=== PATIENT | female | born 1945 | race Caucasian/White ===

== ENCOUNTER 2018-02-08 17:18 | Emergency (ER) | payer MEDICARE, OTHER, SELFPAY ==
[2018-02-08 17:19] VITALS: BP 149/62; PULSE 85; RESP 16; TEMP 36.3; O2SAT 98; BMI 26.1
[2018-02-08 17:29] VITALS: BP 124/57; PULSE 81; RESP 14; O2SAT 97
--- NOTE | 2018-02-08 17:53 | EKG12_ITS ---
Test Reason : FAINTED Blood Pressure : / mmHG Vent. Rate : 077 BPM Atrial Rate : 077 BPM P-R Int : 138 ms QRS Dur : 076 ms QT Int : 382 ms P-R-T Axes : 028 006 022 degrees QTc Int : 432 ms Sinus rhythm with Premature atrial complexes Otherwise normal ECG Confirmed by HELGA BISHOP, SHAHLA ([id number]), publication editor KELLY KEBEDE ([id number]) on 02/11/2018 1:56:37 PM Referred By: PIERRE Confirmed By:SHAHLA PARTIDA MD
[2018-02-08 18:05] LABS: Absolute Neutrophil Count 8.1 X10^3/uL (2.0-7.7); Basophil# 0.03 X10^3/uL; Basophil% 0.3 % (0-1); Eosinophil# 0.04 X10^3/uL; Eosinophils% 0.4 % (0-5); Hematocrit 36.2 % (37-47); Hemoglobin 12.1 g/dl (12.0-15.0); Mean Corp Hgb Conc 33.4 g/gl (32-36); Mean Corpuscular Hgb 31.3 pg (27.0-32.0); Mean Corpuscular Volume 93.5 fL (81-99); Mean Platelet Vol. 11.4 fl (6.2-12.0); Monocyte# 0.63 X10^3/uL; Monocyte% 6.3 % (0-10); Neutrophil # 8.13 X10^3/uL (2.7-7.7); Neutrophil % 80.9 % (47-70); POSITIVE COUNT NO; POSITIVE DIFFERENTIAL NO; POSITIVE MORPHOLOGY NO; Platelet Count 215 K/mm3 (150-450); RBC Distribution Width CV 13.2 % (11.6-14.6); RBC Distribution Width SD 44.7 fl (35.1-43.9); Red Blood Count 3.87 M/mm3 (4.2-5.4)
--- NOTE | 2018-02-08 18:05 | RAD_ITS ---
STUDY: X-RAY CHEST REASON FOR EXAM: Female, 72 years old. Syncopal episode while at work. TECHNIQUE: PA and lateral views of the chest. COMPARISON: None. FINDINGS: The lungs are clear and expanded. There is no demonstrated pleural abnormality. Normal size heart. Normal mediastinum and zachary. Normal visualized pulmonary arteries. Normal visualized aortic arch and descending thoracic aorta. There is demineralization of the osseous structures. Normal visualized ribs, clavicles, and shoulders. There is no demonstrated abnormality of the visualized soft tissue structures of the upper abdomen. RAD/Chest PA and Lateral IMPRESSION: No acute cardiopulmonary disease. Electronically Signed: Daniel Haque DO at 18:55 EDT Tel [phone], Service support ,
[2018-02-08 18:24] LABS: Anion Gap 10 (5-15); BUN 36 mg/dL (7-18); BUN/Creat Ratio 20.7 RATIO (10-20); Calcium,Total 9.5 mg/dL (8.5-10.1); Chloride 101 mmol/L (98-107); Creatinine, Serum 1.74 mg/dL (0.55-1.02); EST Glomerular Filtration Rate 30 mL/min (>60); Est Glom Filt Rate - Afr Amer 37 mL/min (>60); Estimated Creatinine Clearance 26.55 ml/min; Glucose 150 mg/dL (74-106); Potassium 4.2 mmol/L (3.5-5.1); Sodium Level 136 mmol/L (136-145); Thyroid Stim Hormone (TSH) 3.16 uIU/mL (0.358-3.74)
--- NOTE | 2018-02-08 18:45 | ED.DCSUM_ITS ---
- ER Visit Summary Date of Service: 02/08/18 Chief Complaint: Syncope History of Present Illness: The patient is a 72 F was at work today when she suddenly got very hot sweaty pale lightheaded and eventually passed out. She is helped to the ground by a customer. She came to and had no headache. She had no confusion. No reported seizure activity. Patient has had one prior syncopal event. Patient states that before her syncope she had no chest pain no palpitations no abdominal pain no desire to have a bowel or bladder movements. Physical Examination: Afebrile vital signs are stable Gen: Well-nourished well-developed Head: Normocephalic atraumatic Eyes: Perrl EOMI ENT: TMs clear no rhinorrhea moist mucous membranes Neck: Supple no lymphadenopathy no JVD nontender CVS: Regular rate rhythm no murmurs normal S1-S2 Respiratory: No distress clear to auscultation bilaterally chest nontender Abdomen: Soft nontender nondistended normal bowel sounds no masses Back: Nontender Extremity: Nontender no edema Skin: Normal color no rash Neuro: alert orientated ?3 CN II-XII intact normal strength sensation reflexes gait cerebellar Psych: Normal affect normal mood Test Results: EKG showed sinus rhythm at a rate of 77 there was a noted PAC. CBC chemistries showed a BUN of 36 and creatinine 1.74. TSH is normal at 3.16. Troponin negative. Chest x-ray no acute disease. Emergency Department Course and Treatment: Patient was observed on the monitor. She has had no events. Patient otherwise feels back to her normal self. Patient will follow up with her doctor return if worsening. Impression: 1. Syncope This note was generated with [employer] dictation software. It may contain incorrect words, spelling, and punctuation that were not noted in review of the chart prior to signing ED Disposition - Plan for ED Patient: Disposition: Home or Assisted Living Chief Complaint: Syncope Instructions: ED Fainting Unkn Cause Referrals: Janice Azevedo DO [Primary Care Provider] - (with in 3 days) Additional Instructions: return if symptoms reoccur
[2018-02-08 19:22] VITALS: BP 117/59; PULSE 75; RESP 22; O2SAT 95
== END 2018-02-08 19:24 | disposition home or self-care (01) ==
PROVIDERS: Emergency Provider Emergency Medicine; Family Provider Internal Medicine; PCP Internal Medicine
DX: R55 Syncope and collapse (principal); E11.9 Type 2 diabetes mellitus without complications; I10 Essential (primary) hypertension
CPT/HCPCS: 71046; 80048; 84443; 84484; 85025; 93005; 99284; A4216

== ENCOUNTER → 2018-08-04 10:10 | Outpatient (CLI) | payer MEDICARE, OTHER, SELFPAY ==
--- NOTE | 2018-08-04 10:13 | BI_ITS ---
MAMMOGRAPHY - BILATERAL SCREENING REASON FOR EXAM: Female, 73 years old. Routine annual screening examination. PERTINENT HISTORY: Daughter with breast cancer. TECHNIQUE: Digital bilateral breast kevin (3D mammographic acquisition) in the CC and MLO projections. 2-D mediolateral oblique (MLO) and craniocaudad (CC) views of both breasts were obtained. CAD: Full Field Digital Mammography with Computer Added Detection was performed. COMPARISON: Comparison is made with prior study dated July 26, 2017 and July 16, 2016. FINDINGS: Breast Composition: The breasts are heterogeneously dense, which may obscure small masses. There are no dominant masses or suspicious calcifications. No other significant abnormalities are identified. There has been no significant change since the prior study. BI/SCREENING MAMM (CAD), BILAT IMPRESSION: Stable bilateral screening mammogram. Yearly follow-up mammogram recommended. (A) ASSESSMENT CATEGORY: BIRADS Category 1: Negative. A letter regarding these results will be sent to the patient by the facility within 30 days. Approximately 10% of breast cancers are not detected by mammography. A normal mammogram should not delay biopsy of a clinically suspicious abnormality. [id number] Electronically Signed: Bridger Angel MD at 13:40 EDT Tel [phone], Service support ,
--- NOTE | 2018-08-04 10:18 | BD_ITS ---
STUDY: DUAL ENERGY X-RAY ABSORPTIOMETRY / DXA REASON FOR EXAM: Female, 73 years old. The patient is postmenopausal. Loss of height. TECHNIQUE: Bone Mineral Density (BMD) measurements of lumbar spine and bilateral hips were obtained. COMPARISON: Comparison is made with prior examination dated July 16, 2016. FINDINGS: Lumbar Spine (L1-L4): g/cm2 (1.056) / T-score (-0.9) / Z-score (0.8) Findings are suggestive of normal bone density with a low fracture risk. Left Femur Total: g/cm2 (0.968) / T-score (-0.3) / Z-score (1.4) Left Femoral Neck: g/cm2 (0.892) / T-score (-1.1) / Z-score (0.9) Right Femur Total: g/cm2 (0.974) / T-score (-0.3) / Z-score (1.5) Right Femoral Neck: g/cm2 (0.831) / T-score (-1.5) / Z-score (0.4) The T-Scores on the most recent prior examination were: Lumbar Spine (L1-L4): There has been worsening of bone density since the previous examination. Left Femur Total: which represents a worsening of 3.0%. Right Femur Total: which represents a worsening of 3.6%. BD/Dexa Bone Density Study IMPRESSION: The patient is considered osteopenic as outlined below according to World Nicolas Organization (WHO) criteria with a moderate fracture risk. There has been worsening of bone density since the previous examination. Reference Information: The T-score is the number of standard deviations above or below the standard which is normal for young adults at their peak bone mineral density. The World Health Organization (WHO) interprets the T-scores as follows: Above -1 Normal bone density Between -1 and -2.5 Osteopenia Equal to / or below -2.5 Osteoporosis As a practical clinical guideline, osteopenia may be graded as follows: Mild -1 through -1.5 Moderate -1.6 through -2.0 Severe -2.1 through -2.4 The Z-score is the number of standard deviations above or below age-matched controls. A Z-score of less than -1.5 would be considered abnormal. References: 1. NIH Osteoporosis and Related Bone Diseases http://www.osteo.org 2. International Society for Clinical Densitometry http://www.iscd.org 3. National Osteoporosis Foundation http://www.nof.org Electronically Signed: Bridger Angel MD at 15:13 EDT Tel [phone], Service support ,
== END ==
PROVIDERS: Family Provider Internal Medicine; PCP Internal Medicine; Referring Provider Internal Medicine; Visit Provider Internal Medicine
DX: Z12.31 Encounter for screening mammogram for malignant neoplasm of breast (principal); Z78.0 Asymptomatic menopausal state
CPT/HCPCS: 77063; 77067; 77080

== ENCOUNTER → 2019-08-07 11:18 | Outpatient (CLI) | payer MEDICARE, OTHER, SELFPAY ==
--- NOTE | 2019-08-07 11:21 | BI_ITS ---
MAMMOGRAPHY - BILATERAL SCREENING REASON FOR EXAM: Female, 74 years old. Routine annual screening examination. PERTINENT HISTORY: Daughter with breast cancer. TECHNIQUE: Digital bilateral breast minh (3D mammographic acquisition) in the CC and MLO projections. 2-D mediolateral oblique (MLO) and craniocaudad (CC) views of both breasts were obtained. CAD: Full Field Digital Mammography with Computer Added Detection was performed. COMPARISON: Comparison is made with prior study dated August 04, 2018 and July 26, 2017. FINDINGS: Breast Composition: The breasts are heterogeneously dense, which may obscure small masses. There are no dominant masses or suspicious calcifications. Stable benign-appearing bilateral axillary lymph nodes. No other significant abnormalities are identified. There has been no significant change since the prior study. BI/SCREEN MAMM (CAD) W/MINH BILAT IMPRESSION: Stable bilateral screening mammogram. Yearly follow-up mammogram recommended. (A) ASSESSMENT CATEGORY: BIRADS Category 2: Benign. A letter regarding these results will be sent to the patient by the facility within 30 days. Approximately 10% of breast cancers are not detected by mammography. A normal mammogram should not delay biopsy of a clinically suspicious abnormality. [id number] Electronically Signed: Bridger Angel, at 12:55 EST , Service support ,
== END ==
PROVIDERS: Family Provider Internal Medicine; PCP Internal Medicine; Referring Provider Internal Medicine; Visit Provider Internal Medicine
DX: Z12.31 Encounter for screening mammogram for malignant neoplasm of breast (principal)
CPT/HCPCS: 77063; 77067

== ENCOUNTER → 2020-08-14 14:46 | Outpatient (CLI) | payer MEDICARE, OTHER, SELFPAY ==
--- NOTE | 2020-08-14 14:50 | BI_ITS ---
MAMMOGRAPHY - BILATERAL SCREENING REASON FOR EXAM: Female, 75 years old. Routine annual screening examination. PERTINENT HISTORY: Daughter with breast cancer. TECHNIQUE: Digital bilateral breast minh (3D mammographic acquisition) in the CC and MLO projections. 2-D mediolateral oblique (MLO) and craniocaudad (CC) views of both breasts were obtained. CAD: Full Field Digital Mammography with Computer Added Detection was performed. COMPARISON: Comparison is made with prior examination dated 08/07/2019 and 08/04/2018. FINDINGS: Breast Composition: The breasts are heterogeneously dense, which may obscure small masses. There are no dominant masses or suspicious calcifications. Stable benign appearing bilateral axillary lymph nodes. No other significant abnormalities are identified. There has been no significant change since the prior study. BI/SCREEN MAMM (CAD) W/MINH BILAT IMPRESSION: Stable bilateral screening mammogram. Yearly follow-up mammogram recommended. (A) ASSESSMENT CATEGORY: BIRADS Category 2: Benign. A letter regarding these results will be sent to the patient by the facility within 30 days. Approximately 10% of breast cancers are not detected by mammography. A normal mammogram should not delay biopsy of a clinically suspicious abnormality. [id number] Electronically Signed: Bridger Angel, at 15:36 EST , Service support ,
== END ==
PROVIDERS: PCP Internal Medicine; Referring Provider Internal Medicine; Visit Provider Internal Medicine
DX: Z12.31 Encounter for screening mammogram for malignant neoplasm of breast (principal)
CPT/HCPCS: 77063; 77067

== ENCOUNTER → 2021-08-19 11:08 | Outpatient (CLI) | payer MEDICARE, OTHER, SELFPAY ==
--- NOTE | 2021-08-19 11:11 | BD_ITS ---
STUDY: DUAL ENERGY X-RAY ABSORPTIOMETRY / DXA REASON FOR EXAM: Female, 76 years old. [id number]. The patient is postmenopausal. TECHNIQUE: Bone Mineral Density (BMD) measurements of lumbar spine and bilateral hips were obtained. COMPARISON: Comparison is made with prior study dated 08/04/2018. FINDINGS: Lumbar Spine (L1-L4): g/cm2 (0.907) / T-score (-1.0) / Z-score (1.5) Findings are suggestive of normal bone density with a low fracture risk. Left Femur Total: g/cm2 (0.858) / T-score (-0.7) / Z-score (1.3) Left Femoral Neck: g/cm2 (0.710) / T-score (-1.3) / Z-score (1.0) Right Femur Total: g/cm2 (0.870) / T-score (-0.6) / Z-score (1.4) Right Femoral Neck: g/cm2 (0.617) / T-score (-2.1) / Z-score (0.1) The T-Scores on the most recent prior examination were: Lumbar Spine (L1-L4): There has been worsening of bone density since the previous examination. Left Femur Total: which represents a worsening of 5%. Right Femur Total: which represents a worsening of 4.3%. BD/Dexa Bone Density Study IMPRESSION: The patient is considered osteopenic as outlined below according to World Nicolas Organization (WHO) criteria with a moderate fracture risk. There has been worsening of bone density since the previous examination. Reference Information: The T-score is the number of standard deviations above or below the standard which is normal for young adults at their peak bone mineral density. The World Health Organization (WHO) interprets the T-scores as follows: Above -1 Normal bone density Between -1 and -2.5 Osteopenia Equal to / or below -2.5 Osteoporosis As a practical clinical guideline, osteopenia may be graded as follows: Mild -1 through -1.5 Moderate -1.6 through -2.0 Severe -2.1 through -2.4 The Z-score is the number of standard deviations above or below age-matched controls. A Z-score of less than -1.5 would be considered abnormal. References: 1. NIH Osteoporosis and Related Bone Diseases www osteo.org 2. International Society for Clinical Densitometry www iscd.org 3. National Osteoporosis Foundation www nof.org Electronically Signed: Bridger Angel MD at 14:53 EST , Service support ,
--- NOTE | 2021-08-19 11:11 | BI_ITS ---
MAMMOGRAPHY - BILATERAL SCREENING REASON FOR EXAM: Female, 76 years old. Routine annual screening examination. PERTINENT HISTORY: Daughter with breast cancer. TECHNIQUE: Digital bilateral breast minh (3D mammographic acquisition) in the CC and MLO projections. 2-D mediolateral oblique (MLO) and craniocaudad (CC) views of both breasts were obtained. CAD: Full Field Digital Mammography with Computer Added Detection was performed. COMPARISON: Comparison is made with prior study dated 08/14/2020 and 08/07/2019. FINDINGS: Breast Composition: The breasts are heterogeneously dense, which may obscure small masses. There are no dominant masses or suspicious calcifications. Stable small benign-appearing bilateral axillary lymph nodes. No other significant abnormalities are identified. There has been no significant change since the prior study. BI/SCRN MAMM (CAD)W/MINH BILAT IMPRESSION: Stable bilateral screening mammogram. Yearly follow-up mammogram recommended. (A) ASSESSMENT CATEGORY: BIRADS Category 2: Benign. A letter regarding these results will be sent to the patient by the facility within 30 days. Approximately 10% of breast cancers are not detected by mammography. A normal mammogram should not delay biopsy of a clinically suspicious abnormality. [id number] Electronically Signed: Bridger Angel MD at 12:15 EST , Service support ,
== END ==
PROVIDERS: PCP Internal Medicine; Visit Provider Internal Medicine
DX: Z12.31 Encounter for screening mammogram for malignant neoplasm of breast (principal); Z78.0 Asymptomatic menopausal state
CPT/HCPCS: 77063; 77067; 77080

== ENCOUNTER 2021-10-11 09:51 | Outpatient (CLI) | payer MEDICARE, OTHER, SELFPAY ==
[2021-10-11 10:01] LABS: Mucous, Urine 0 SEEN /hpf (<or=2+); Red Blood Cells-Urine 0 SEEN /hpf (0-5)
[2021-10-11 10:23] LABS: Absolute Lymphocyte Count 1.31 X10^3/uL (0.83-4.51); Absolute Neutrophil Count 4.7 X10^3/uL (2.0-7.7); Basophil# 0.07 X10^3/uL; Color, Urine Yellow (Yellow); Eosinophils% 2.9 % (0-5); Glucose, Dipstick Normal (Normal); Hematocrit 39.4 % (37-47); Ketone-Dipstick Negative (Negative); Leukocyte Esterase-Dipstick 500 /ul (Negative); Lymphocyte # 1.31 X10^3/ul (0.83-4.51); Lymphocyte % 19.2 % (19-41); Mean Corpuscular Volume 93.8 fL (81-99); Mean Platelet Vol. 10.5 fl (6.2-12.0); Monocyte# 0.56 X10^3/uL; Monocyte% 8.2 % (0-10); NRBC Flagged by Analyzer 0.3 % (0-5); Neutrophil # 4.67 X10^3/uL (2.7-7.7); Neutrophil % 68.4 % (47-70); Nitrite-Dipstick Positive (Negative); Occult Blood-Urine 10 /ul (Negative); Platelet Count 252 K/mm3 (150-450); Protein-Dipstick 30 mg/dl (Negative); RBC Distribution Width CV 12.7 % (11.6-14.6); RBC Distribution Width SD 43.6 fl (35.1-43.9); Urine Bilirubin Dipstick Negative (Negative); Urine Clarity Cloudy (Clear); Urine Urobilinogen Normal (Normal); White Blood Count 6.8 K/mm3 (4.4-11.0)
[2021-10-11 10:29] LABS: Bacteria 2+ /hpf (None Seen); White Blood Cells 5-10 SEEN /hpf (0-5)
[2021-10-11 10:30] LABS: Squamous Epithelial Cells - UA 0-5 SEEN /hpf (5-10)
[2021-10-11 10:49] LABS: Microalbumin:Creatinine Ratio 143.1 mg/g CRE (<30 mg/g CRE)
[2021-10-11 11:32] LABS: ALB/GLOB Ratio 0.7 RATIO (0.9-2.4); AST(SGOT) 20 U/L (15-37); Alanine Aminotransfer ALT/SGPT 21 U/L (13-56); Albumin, Serum 3.3 g/dL (3.2-5.0); Alkaline Phosphatase 74 U/L (45-117); Anion Gap 7 (5-15); BUN 21 mg/dL (7-18); BUN/Creat Ratio 22.5 RATIO (10-20); Calcium,Total 9.3 mg/dL (8.5-10.1); Chloride 105 mmol/L (98-107); Cholesterol 232 mg/dL (200); Creatinine, Serum 0.93 mg/dL (0.55-1.02); EST Glomerular Filtration Rate 62 mL/min (>60); Est Glom Filt Rate - Afr Amer 75 mL/min (>60); Globulin 4.5 g/dL (2.2-4.2); Glucose 118 mg/dL (74-106); High Density Lipoprotein 52 mg/dL; Potassium 3.8 mmol/L (3.5-5.1); Protein, Total 7.8 g/dL (6.4-8.2); Sodium Level 140 mmol/L (136-145); Thyroid Stim Hormone (TSH) 3.29 uIU/mL (0.358-3.74); Triglycerides 85 mg/dL; Very Low Density Lipoprotein 17 mg/dL (5-40)
[2021-10-13 09:21] LABS: Vitamin D,25 Hydroxy 71.3 ng/mL
== END 2021-10-11 23:59 | disposition short-term general hospital (02) ==
PROVIDERS: PCP Internal Medicine; Referring Provider Internal Medicine; Visit Provider Internal Medicine
DX: E78.00 Pure hypercholesterolemia, unspecified (principal); E11.9 Type 2 diabetes mellitus without complications; E55.9 Vitamin D deficiency, unspecified
CPT/HCPCS: 36415; 80053; 80061; 81001; 82043; 82306; 82570; 83036; 84443; 85025

== ENCOUNTER 2021-10-26 11:38 | Inpatient (IN) | payer MEDICARE, OTHER, SELFPAY ==
[2021-10-26] VITALS (13 sets, daily range): BP systolic 175–226; BP diastolic 82–160; PULSE 64–108; RESP 16–18; TEMP 36.3–36.7; O2SAT 93–98; BMI 26.6; BMI 26.5
--- NOTE | 2021-10-26 11:49 | RAD_ITS ---
STUDY: X-RAY CHEST REASON FOR EXAM: Female, 76 years old. Neuro deficit, acute, stroke suspected TECHNIQUE: Frontal portable view of the chest COMPARISON: None. FINDINGS: Pulmonary volumes are low. There are no regional opacities. There is no demonstrated pleural abnormality. Normal size heart. Normal mediastinum and zachary. Normal visualized pulmonary arteries. Normal visualized aortic arch and descending thoracic aorta. Normal visualized thoracic spine. Normal visualized ribs, clavicles, and shoulders. There is no demonstrated abnormality of the visualized soft tissue structures of the upper abdomen. RAD/Chest 1 View IMPRESSION: Unremarkable low volume radiograph. Electronically Signed: Christoph Adams MD at 13:24 EST Tel , Service support ,
--- NOTE | 2021-10-26 11:49 | CT_ITS ---
STUDY: CT BRAIN WITHOUT CONTRAST REASON FOR EXAM: Female, 76 years old. Left-sided neurologic deficits possible stroke RADIATION DOSAGE (If Supplied By Facility): CTDIvol = ( ) mGy, DLP = ( ) mGycm TECHNIQUE: Transaxial CT imaging of the brain was performed without administration of intravenous contrast material. Individualized dose optimization techniques were used for this CT. COMPARISON: 11 March 2015 FINDINGS: There is extensive diffuse multifocal brain abnormality due to multiple remote infarcts and severe white matter chronic ischemic change/infarct. This makes detection of new infarct difficult. There is no large complete acute territorial infarction. There are multiple cortical and subcortical chronic infarcts. There is remote left occipital infarct. There is an adjacent region of intermediate hypodensity cortex, unknown age infarct, possibly acute. There are chronic ischemic changes bilaterally in the external capsules and in the right lentiform nucleus. There is no intracranial hemorrhage, extra parenchymal fluid collections, hydrocephalus or herniation. Base of skull carotids are atherosclerotic with calcified plaque. The skull is intact. Appearance is comparable to 2015. CT/STROKE Brain/Head without Cont IMPRESSION: 1. 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 Low accuracy for detection of new infarct. MR is advised. 2. No large territorial infarction. 3. No intracranial hemorrhage. N.B. : The above Results were Read Back by Christoph Adams MD to Tiny Gaines MD, and understanding confirmed on 10/26/2021 12:25:18 (ET). Electronically Signed: Christoph Adams MD at 12:31 EST Tel , Service support ,
--- NOTE | 2021-10-26 11:49 | EKG12_ITS ---
Test Reason : NEURO S/SX Blood Pressure : / mmHG Vent. Rate : 088 BPM Atrial Rate : 088 BPM P-R Int : 140 ms QRS Dur : 076 ms QT Int : 370 ms P-R-T Axes : 027 004 038 degrees QTc Int : 447 ms Normal sinus rhythm Nonspecific ST abnormality Abnormal ECG Confirmed by HELGA BISHOP, SHAHLA ([id number]), clinical editor KEN AVALOS ([id number]) on 10/28/2021 9:44:28 AM Referred By: MAIRA Confirmed By:SHAHLA PARTIDA MD
[2021-10-26 11:50] LABS: Bedside Glucose 150 mg/dL (70-110)
--- NOTE | 2021-10-26 11:50 | EDS_ITS ---
HPI <Dr. Tiny Gaines DO - Last Filed: 10/26/21 13:01> History of Present Illness Detail of Chief Complaint: Paresthesias of the left arm and leg that started around 7 PM last evening Informant: patient Narrative Narrative: Presents with paresthesias of the left arm and left foot that started last evening. Patient feels off balance. She initially told me that it did not feel like her left arm wanted to work right. She has not had symptoms like this before. She denies falls or head injuries. She denies headache. She denies recent illness. She does have history of diabetes, hypertension, and high cholesterol. She denies any difficulty with speech or vision changes. Prior similar symptoms: No PFSH <Dr. Tiny Gaines DO - Last Filed: 10/26/21 13:01> PFSH Medical History Diabetes Hypertension Home Medications Cholestyramine 4 g PO DAILY 03/11/15 [History Last Taken Unknown] aspirin 81 mg PO DAILY@0800 03/11/15 [History Last Taken Unknown] glimepiride 1 mg PO DAILY 03/11/15 [History Last Taken Unknown] metformin 1,000 mg PO DAILY 03/11/15 [History Last Taken Unknown] olmesartan-hydrochlorothiazide [Benicar Hct 20-12.5 MG Tab] 1 tab PO DAILY 03/11/15 [History Last Taken Unknown] Allergy/AdvReac Type Severity Reaction Status Date / Time No Known Allergies Allergy Verified 10/26/21 11:48 Family History (Updated 10/26/21 @ 13:[address] Marisa Carey MD) Father Myocardial infarction Brother CAD (coronary artery disease) Mother Cancer Social History (Updated 10/26/21 @ 13:[address] Marisa Carey MD) household members: family housing: house Smoking Status: Never smoker substance use type: does not use what type of physical activity do you participate in: walking ROS <Dr. Tiny Gaines DO - Last Filed: 10/26/21 13:01> ROS ED Constitutional Constitutional ED: Reports systems reviewed and no addt'l complaints, except as documented; Denies body ache(s), change in weight or chills Eyes Eyes: Denies acute decrease in peripheral vision, change in vision, double vision or loss of vision ENT ENT ED: Reports none; Denies ear pain, lip swelling, loss taste/smell, neck pain, otalgia or sore throat Cardiovascular Cardiovascular: Reports none; Denies abdominal pain, chest pain with activity, leg edema, lightheadedness, palpitations, rapid heart rate or syncope Respiratory/Chest Respiratory/Chest: Reports none; Denies change in mental status, dry cough, dyspnea, hemoptysis, shortness of breath at rest or shortness of breath with exertion Gastrointestinal Gastrointestinal: Reports none; Denies abdominal pain, change in stool character, diarrhea, hematemesis, hematochezia, melena, rectal bleeding or vomiting Genitourinary Genitourinary ED: Reports none; Denies abdominal discomfort, anuria, dysuria, genital pain or polyuria Musculoskeletal Musculoskeletal: Reports none; Denies arthralgias, back pain, difficulty walking, extremity pain, muscle weakness or myalgias Integumentary Reports none; Denies abscess or rash Neurologic Neurologic: Reports none, paresthesias, weakness and other Details: Left arm weakness ; Denies abnormal gait, confusion, focal weakness, frequent falls, headache(s), loss of vision, numbness, radicular pain or vertigo Psychiatric Psychiatric: Reports systems reviewed and no addt'l complaints, except as documented and none; Denies behavioral changes, confusion, difficulty concentrating, hallucinations, suicidal ideation, tactile hallucinations or visual hallucinations Endocrine Endocrinology: Denies none, cold intolerance, excessive sweating, fatigue or heat intolerance Hematologic/Lymphatic Hematologic/Lymphatic: Reports none; Denies anemia, easy bleeding or easy bruising Allergic/Immunologic Allergic/Immunologic ED: Denies as per HPI, none, lip swelling, mouth swelling, throat swelling, tongue swelling or hives EXAM <Dr. Tiny Gaines, DO - Last Filed: 10/26/21 13:01> Physical Exam Const Vital Signs: 10/26/21 11:43 10/26/21 11:52 10/26/21 12:29 Temperature 97.9 F Temperature Source Temporal Pulse Rate 108 H 100 93 Respiratory Rate 18 18 18 Blood Pressure 226/105 H 226/105 H 190/160 H Blood Pressure Mean 145 145 170 Pulse Ox 95 98 96 Oxygen Delivery Method Room Air Room Air Positive well nourished and well developed General Appearance ED: well developed and NAD HEENT Reports TM's clear and moist mucous membranes normocephalic and atraumatic; Negative for trauma or tenderness Tympanic Membrane ED: Yes TM's clear Eyes PERRL and EOMs intact bilaterally General Eye ED: Negative for pale conjunctiva or scleral icterus Neck no lymphadenopathy, supple and no JVD General: Negative for tenderness Chest Wall inspection of chest normal and palpation of chest normal Chest: Negative for tenderness Resp normal respiratory effort and clear to auscultation bilaterally Effort and Inspection: Negative for respiratory distress or pain with movement Auscultation: Negative for rhonchi, wheezes or diminished lung sounds Cardio regular rate, regular rhythm, S1 normal heart sound, S2 normal heart sound and no murmurs Peripheral Pulses: pulses 2+ throughout GI normal to inspection, nondistended, normoactive bowel sounds, soft to palpation, non-tender, non-distended and no masses Back/Spine no CVA tenderness and no thoracic nor lumbar tenderness Extremity normal to inspection General Extremety ED: Negative for edema General Extremity: Negative for edema Neuro oriented x3, CN's II-XII intact bilaterally, no sensory deficits noted and gait normal Neuro Narrative: Finger-nose and heel king testing within normal limits, negative pronator drift. Patient does have decreased sensation to left arm and left leg. NIH stroke scale was a 2 due to sensation issues. Sensorium / Orientation: awake, alert, oriented to person, oriented to place and oriented to time Motor Exam: strength 5/5 throughout and strength abnormal Psych mental status grossly normal Skin no rashes or lesions noted and no wounds STROKE Vital Signs/Narrative: Vital Signs Temp Pulse Resp BP Pulse Ox 10/26/21 12:29 93 18 190/160 H 96 10/26/21 11:52 100 18 226/105 H 98 10/26/21 11:43 97.9 F 108 H 18 226/105 H 95 <Dr. Marisa Carey MD - Last Filed: 10/26/21 13:52> Physical Exam Const Vital Signs: 10/26/21 11:43 10/26/21 11:52 10/26/21 12:29 Temperature 97.9 F Temperature Source Temporal Pulse Rate 108 H 100 93 Respiratory Rate 18 18 18 Blood Pressure 226/105 H 226/105 H 190/160 H Blood Pressure Mean 145 145 170 Pulse Ox 95 98 96 Oxygen Delivery Method Room Air Room Air STROKE Vital Signs/Narrative: Vital Signs Temp Pulse Resp BP Pulse Ox 10/26/21 12:29 93 18 190/160 H 96 10/26/21 11:52 100 18 226/105 H 98 10/26/21 11:43 97.9 F 108 H 18 226/105 H 95 [facility] <Dr. Tiny Gaines, DO - Last Filed: 10/26/21 13:01> [facility] Narrative Medical decision making narrative: IV line established on arrival. Patient placed on a script writer. I did order labetalol [address] scan of the brain showed multiple chronic infarcts no obvious acute infarct noted. Patient had CTAs of the head and neck which showed 50% right ICA origin stenosis with probable ulcerated plaque. Case will be discussed with hospitalist to evaluate patient for admission for further stroke work-up. Lab Data Attestation: I reviewed the patient's lab results. Labs: Laboratory Results - last 24 hr 10/26/21 10/26/21 10/26/21 11:44 11:47 11:47 WBC 6.7 RBC 4.48 Hgb 13.6 Hct 41.7 MCV 93.1 MCH 30.4 MCHC 32.6 RDW Std Deviation 42.8 RDW Coeff of Ann Marie 12.5 Plt Count 272 MPV 10.6 Immature Gran % (Auto) 0.300 Neut % (Auto) 69.7 Lymph % (Auto) 21.7 Carter % (Auto) 7.3 Eos % (Auto) 0.6 Baso % (Auto) 0.4 Absolute Neuts (auto) 4.7 Absolute Lymphs (auto) 1.46 Nucleated RBC % 0 PT 14.4 INR 1.2 APTT 29.3 Sodium Potassium Chloride Carbon Dioxide Anion Gap BUN Creatinine Estim Creat Clear Calc Est GFR (MDRD) Af Amer Est GFR (MDRD) Non-Af BUN/Creatinine Ratio Glucose Calcium Troponin I High Sens POC Glucose 150 H 10/26/21 11:47 WBC RBC Hgb Hct MCV MCH MCHC RDW Std Deviation RDW Coeff of Ann Marie Plt Count MPV Immature Gran % (Auto) Neut % (Auto) Lymph % (Auto) Carter % (Auto) Eos % (Auto) Baso % (Auto) Absolute Neuts (auto) Absolute Lymphs (auto) Nucleated RBC % PT INR APTT Sodium 138 Potassium 3.9 Chloride 104 Carbon Dioxide 26.0 Anion Gap 8 BUN 20 H Creatinine 0.95 Estim Creat Clear Calc 43.92 Est GFR (MDRD) Af Amer 73 Est GFR (MDRD) Non-Af 60 BUN/Creatinine Ratio 21.0 H Glucose 147 H Calcium 9.8 Troponin I High Sens 24 POC Glucose Radiography Diagnostic Testing: Clinical Impression(s) from Imaging Studies Brain CT 10/26/21 11:49 IMPRESSION: 1. 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 Low accuracy for detection of new infarct. MR is advised. 2. No large territorial infarction. 3. No intracranial hemorrhage. N.B. : The above Results were Read Back by Christoph Adams MD to Tiny Gaines MD, and understanding confirmed on 10/26/2021 12:25:18 (ET). Electronically Signed: Christoph Adams MD at 12:31 EST Tel , Service support , ADDENDUM: 10/26/21 1238 IMPRESSION: 1. 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 Low accuracy for detection of new infarct. MR is advised. 2. No large territorial infarction. 3. No intracranial hemorrhage. N.B. : The above Results were Read Back by Christoph Admas MD to Tiny Gaines MD, and understanding confirmed on 10/26/2021 12:25:18 (ET). Electronically Signed: Christoph Adams MD at 12:31 EST Tel , Service support , Chest X-Ray 10/26/21 11:49 IMPRESSION: Unremarkable low volume radiograph. Electronically Signed: Christoph Adams MD at 13:24 EST Tel , Service support , Head/Neck CTA 10/26/21 11:50 IMPRESSION: 1. Patent intracranial arteries. 2. 50% right ICA origin stenosis with probably ulcerated plaque. 3. Left carotid plaque without stenosis. N.B. : The above Results were Read Back by Christoph Adams MD to Tiny Gaines MD, and understanding confirmed on 10/26/2021 12:40:05 (ET). Electronically Signed: Christoph Adams MD at 12:44 EST Tel , Service support , ADDENDUM: 10/26/21 1251 IMPRESSION: 1. Patent intracranial arteries. 2. 50% right ICA origin stenosis with probably ulcerated plaque. 3. Left carotid plaque without stenosis. N.B. : The above Results were Read Back by Christoph Adams MD to Tiny Gaines MD, and understanding confirmed on 10/26/2021 12:40:05 (ET). Electronically Signed: Christoph Adams MD at 12:44 EST Tel , Service support , EKG Initial EKG: Attestation: I personally reviewed and interpreted this EKG as follows: Comments: Sinus rhythm with a rate of [address] changes <Dr. Marisa Carey MD - Last Filed: 10/26/21 13:52> [facility] Lab Data Labs: Laboratory Results - last 24 hr 10/26/21 10/26/21 10/26/21 11:44 11:47 11:47 WBC 6.7 RBC 4.48 Hgb 13.6 Hct 41.7 MCV 93.1 MCH 30.4 MCHC 32.6 RDW Std Deviation 42.8 RDW Coeff of Ann Marie 12.5 Plt Count 272 MPV 10.6 Immature Gran % (Auto) 0.300 Neut % (Auto) 69.7 Lymph % (Auto) 21.7 Carter % (Auto) 7.3 Eos % (Auto) 0.6 Baso % (Auto) 0.4 Absolute Neuts (auto) 4.7 Absolute Lymphs (auto) 1.46 Nucleated RBC % 0 PT 14.4 INR 1.2 APTT 29.3 Sodium Potassium Chloride Carbon Dioxide Anion Gap BUN Creatinine Estim Creat Clear Calc Est GFR (MDRD) Af Amer Est GFR (MDRD) Non-Af BUN/Creatinine Ratio Glucose Calcium Troponin I High Sens POC Glucose 150 H 10/26/21 11:47 WBC RBC Hgb Hct MCV MCH MCHC RDW Std Deviation RDW Coeff of Ann Marie Plt Count MPV Immature Gran % (Auto) Neut % (Auto) Lymph % (Auto) Carter % (Auto) Eos % (Auto) Baso % (Auto) Absolute Neuts (auto) Absolute Lymphs (auto) Nucleated RBC % PT INR APTT Sodium 138 Potassium 3.9 Chloride 104 Carbon Dioxide 26.0 Anion Gap 8 BUN 20 H Creatinine 0.95 Estim Creat Clear Calc 43.92 Est GFR (MDRD) Af Amer 73 Est GFR (MDRD) Non-Af 60 BUN/Creatinine Ratio 21.0 H Glucose 147 H Calcium 9.8 Troponin I High Sens 24 POC Glucose Radiography Diagnostic Testing: Clinical Impression(s) from Imaging Studies Brain CT 10/26/21 11:49 IMPRESSION: 1. 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 Low accuracy for detection of new infarct. MR is advised. 2. No large territorial infarction. 3. No intracranial hemorrhage. N.B. : The above Results were Read Back by Christoph Adams MD to Tiny Gaines MD, and understanding confirmed on 10/26/2021 12:25:18 (ET). Electronically Signed: Christoph Adams MD at 12:31 EST Tel , Service support , ADDENDUM: 10/26/21 1238 IMPRESSION: 1. 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 Low accuracy for detection of new infarct. MR is advised. 2. No large territorial infarction. 3. No intracranial hemorrhage. N.B. : The above Results were Read Back by Christoph Adams MD to Tiny Gaines MD, and understanding confirmed on 10/26/2021 12:25:18 (ET). Electronically Signed: Christoph Adams MD at 12:31 EST Tel , Service support , Chest X-Ray 10/26/21 11:49 IMPRESSION: Unremarkable low volume radiograph. Electronically Signed: Christoph Adams MD at 13:24 EST Tel , Service support , Head/Neck CTA 10/26/21 11:50 IMPRESSION: 1. Patent intracranial arteries. 2. 50% right ICA origin stenosis with probably ulcerated plaque. 3. Left carotid plaque without stenosis. N.B. : The above Results were Read Back by Chrsitoph Adams MD to Tiny Gaines MD, and understanding confirmed on 10/26/2021 12:40:05 (ET). Electronically Signed: Christoph Adams MD at 12:44 EST Tel , Service support , ADDENDUM: 10/26/21 1251 IMPRESSION: 1. Patent intracranial arteries. 2. 50% right ICA origin stenosis with probably ulcerated plaque. 3. Left carotid plaque without stenosis. N.B. : The above Results were Read Back by Christoph Adams MD to Tiny Gaines MD, and understanding confirmed on 10/26/2021 12:40:05 (ET). Electronically Signed: Christoph Adams MD at 12:44 EST Tel , Service support , Discharge Plan Dx/Rx/DC Orders Clinical Impression: Hypertension, Acute CVA (cerebrovascular accident) Disposition Disposition: Acute Care Hospital [facility] Discharge Date/Time: 10/26/21 13:35
--- NOTE | 2021-10-26 11:50 | CT_ITS ---
STUDY: CTA HEAD AND NECK WITH CONTRAST REASON FOR EXAM: Female, 76 years old. Neuro deficit, acute, stroke suspected RADIATION DOSAGE (If Supplied By Facility): CTDIvol = ( 19.26 ) mGy, DLP = ( 652.14 ) mGycm TECHNIQUE: CT angiography was performed with a multi-detector CT scanner. Data acquisition was obtained from the skull base through the vertex following intravenous administration of IV 100mL [id number]-370. MIP images were reconstructed from the axial data set. Post-processing of the angiographic images was performed, with multiplanar reformation and 3D reconstruction. Individualized dose optimization techniques were used for this CT. COMPARISON: No relevant priors. FINDINGS: Normal bilateral petrous carotid arteries. Normal right cavernous carotid artery with a normal supraclinoid bifurcation. Normal left cavernous carotid artery with a normal supraclinoid bifurcation. Normal right A1 segments of the anterior cerebral artery. Normal left A1 segments of the anterior cerebral artery. Normal intact anterior communicating artery (ACOM). Normal bilateral A2 segments of the anterior cerebral arteries. Normal right M1 and M2 segments of the middle cerebral arteries, with a normal M1 bifurcation. Normal left M1 and M2 segments of the middle cerebral arteries, with a normal M1 bifurcation. Posterior communicating arteries are not well seen. Normal bilateral vertebral arteries. Normal basilar artery with a normal basilar bifurcation. The visualized bilateral superior cerebellar (SCA) arteries are normal. Normal bilateral P1, P2 and visualized P3 segments of the posterior cerebral arteries. Dural venous sinuses are patent. Aorta is normal caliber with low volume lipid rich atherosclerotic plaque in the distal arch. Branching pattern is normal. Bilateral common carotids, subclavian is and vertebral arteries are patent. There is tortuosity of the vessels, a finding associated with long-standing hypertension. Right carotid has lipid rich plaque with irregular presumably ulcerated surface with low-grade, 50% stenosis. Left carotid has lipid rich plaque without stenosis. Remainder of bilateral cervical internal carotids are patent. Neck Soft tissues are normal There is mild spondylotic chronic thecal sac stenosis at C5-C6. There are scattered foraminal stenoses. Lung apices are clear. CT/STROKE CTA Head AND Neck W/Con IMPRESSION: 1. Patent intracranial arteries. 2. 50% right ICA origin stenosis with probably ulcerated plaque. 3. Left carotid plaque without stenosis. N.B. : The above Results were Read Back by Christoph Adams MD to Tiny Gaines MD, and understanding confirmed on 10/26/2021 12:40:05 (ET). Electronically Signed: Christoph Adams MD at 12:44 EST Tel , Service support ,
[2021-10-26 11:55] LABS: Absolute Lymphocyte Count 1.46 X10^3/uL (0.83-4.51); Absolute Neutrophil Count 4.7 X10^3/uL (2.0-7.7); Basophil# 0.03 X10^3/uL; Basophil% 0.4 % (0-1); Eosinophil# 0.04 X10^3/uL; Eosinophils% 0.6 % (0-5); Hematocrit 41.7 % (37-47); Hemoglobin 13.6 g/dL (12.0-15.0); Lymphocyte # 1.46 X10^3/ul (0.83-4.51); Lymphocyte % 21.7 % (19-41); Mean Corp Hgb Conc 32.6 g/dL (32-36); Mean Corpuscular Hgb 30.4 pg (27.0-32.0); Mean Corpuscular Volume 93.1 fL (81-99); Mean Platelet Vol. 10.6 fl (6.2-12.0); Monocyte# 0.49 X10^3/uL; Monocyte% 7.3 % (0-10); NRBC Flagged by Analyzer 0 % (0-5); Neutrophil % 69.7 % (47-70); Platelet Count 272 K/mm3 (150-450); RBC Distribution Width CV 12.5 % (11.6-14.6); RBC Distribution Width SD 42.8 fl (35.1-43.9); Red Blood Count 4.48 M/mm3 (4.2-5.4); White Blood Count 6.7 K/mm3 (4.4-11.0)
[2021-10-26 12:04] LABS: International Normalized Ratio 1.2; Partial Thromboplast Time 29.3 Seconds (24.1-36.2); Prothrombin Time (Protime)PT. 14.4 SECONDS (11.7-14.9)
[2021-10-26 12:17] LABS: Anion Gap 8 (5-15); BUN 20 mg/dL (7-18); Calcium,Total 9.8 mg/dL (8.5-10.1); Chloride 104 mmol/L (98-107); Creatinine, Serum 0.95 mg/dL (0.55-1.02); EST Glomerular Filtration Rate 60 mL/min (>60); Est Glom Filt Rate - Afr Amer 73 mL/min (>60); Estimated Creatinine Clearance 43.92 ml/min; Glucose 147 mg/dL (74-106); Potassium 3.9 mmol/L (3.5-5.1); Sodium Level 138 mmol/L (136-145); Troponin-I HS 24 pg/mL (3.0-54.0)
[2021-10-26] MEDS: Labetalol (Prefilled) 20 MG/4 ML IV (12:58)
--- NOTE | 2021-10-26 13:07 | PCM.HP.STD ---
HPI - General General Date of Admission: 10/26/21 Date of Service: 10/26/21 Chief Complaint: Left-sided weakness, tingling and numbness ongoing for 1 day HPI Narrative KELLY MICHAEL, is a 76 F who presents with the above noticed at 7 PM the day before. Patient did not tell anyone. This morning she reported to her daughter and was brought to the hospital. Patient had had persistent left facial, left upper extremity and lower extremity tingling with numbness that felt . This has not changed or worsened since 7 PM last evening . Patient recently has had blood pressure medications changed by her primary care doctor. He denied any headaches or dizziness or palpitation. Denied any history of stroke. She has history of diabetes and is on metformin and glimepiride. Patient is fully vaccinated with a booster vaccine against COVID-19 infection. Vitals in the ED showed elevated blood pressure of 226/105. Her admitting blood work was unremarkable. Brain CT showed multiple remote infarcts and severe white matter chronic ischemic changes. CTA of the head showed 50% right ICA origin stenosis with probable ulcerated plaque. Admitting chest x-ray was unremarkable. [facility] Medical History Diabetes Hypertension Home Medications Cholestyramine 4 g PO DAILY 03/11/15 [History Last Taken Unknown] aspirin 81 mg PO DAILY@0800 03/11/15 [History Last Taken Unknown] glimepiride 1 mg PO DAILY 03/11/15 [History Last Taken Unknown] metformin 1,000 mg PO DAILY 03/11/15 [History Last Taken Unknown] olmesartan-hydrochlorothiazide [Benicar Hct 20-12.5 MG Tab] 1 tab PO DAILY 03/11/15 [History Last Taken Unknown] Allergy/AdvReac Type Severity Reaction Status Date / Time No Known Allergies Allergy Verified 10/26/21 11:48 Family History (Updated 10/26/21 @ 13:[address] Marisa Carey MD) Father Myocardial infarction Brother CAD (coronary artery disease) Mother Cancer no surgical history Social History (Updated 10/26/21 @ 13:[address] Marisa Carey MD) household members: family housing: house Smoking Status: Never smoker substance use type: does not use what type of physical activity do you participate in: walking ROS ROS Narrative Constitutional: Denies: Anorexia, Chills, Fever, Night Sweats, Weight Change Eyes: Denies: Blurred vision, Cataracts, Conjunctivae Inflammation, Pain, Redness, Vision Change HEENT: Denies: Difficulty Hearing, Difficulty Swallowing, Head Aches, Hearing Changes, Sinus Congestion, Sinus Drainage Cardiovascular: Denies: Chest Pain, Orthopnea, Palpitations Respiratory: Denies: Cough, Shortness of breath at rest, Sputum production Gastrointestinal: Denies: Abdominal Pain, Nausea, Vomiting Genitourinary: Denies: Dysuria Musculoskeletal: Denies: Joint Pain, Joint stiffness, Joint swelling, Joint Tenderness Skin: Denies: Rash, Wounds Neurological: See HPI Vital Signs Vital Signs Vital Signs: 10/26/21 11:43 10/26/21 11:52 10/26/21 12:29 Temperature 97.9 F Temperature Source Temporal Pulse Rate 108 H 100 93 Respiratory Rate 18 18 18 Blood Pressure 226/105 H 226/105 H 190/160 H Blood Pressure Mean 145 145 170 Pulse Ox 95 98 96 Oxygen Delivery Method Room Air Room Air 10/26/21 12:57 10/26/21 13:01 Temperature Temperature Source Pulse Rate 87 85 Respiratory Rate 18 17 Blood Pressure 197/95 H 186/95 H Blood Pressure Mean 129 125 Pulse Ox 95 93 Oxygen Delivery Method Room Air Room Air Weight Weight: 72.6 kg Body Mass Index (BMI) 26.6 Physical Exam Narrative Physical exam: General: Alert, Oriented x3, Cooperative, No apparent distress, Well developed HEENT: Atraumatic Oral: Moist Mucosa Neck: Supple Lungs: Diminished to auscultation Cardiovascular: HS I+II, regular, no murmurs Abdomen: Bowel Sounds Present, Soft, Non Tender Extremities: No edema Skin: No rashes, No breakdown Neurological: CN II-XII intact except for left facial numbness, power is 5/5 in all extremities, nomal tone Decreased sensation in left upper and lower extremities. Psych/Mental Status: Appropriate Results Lab / Micro Data Result Diagrams: 10/26/21 11:47 10/26/21 11:47 Labs: Laboratory Results - last 24 hr 10/26/21 11:44: POC Glucose 150 H 10/26/21 11:47: WBC 6.7, RBC 4.48, Hgb 13.6, Hct 41.7, MCV 93.1, MCH 30.4, MCHC 32.6, RDW Std Deviation 42.8, RDW Coeff of [place] 12.5, Plt Count 272, MPV 10.6, Immature Gran % (Auto) 0.300, Neut % (Auto) 69.7, Lymph % (Auto) 21.7, [place] % (Auto) 7.3, Eos % (Auto) 0.6, Baso % (Auto) 0.4, Absolute Neuts (auto) 4.7, Absolute Lymphs (auto) 1.46, Nucleated RBC % 0 10/26/21 11:47: PT 14.4, INR 1.2, APTT 29.3 10/26/21 11:47: Sodium 138, Potassium 3.9, Chloride 104, Carbon Dioxide 26.0, Anion Gap 8, BUN 20 H, Creatinine 0.95, Estim Creat Clear Calc 43.92, Est GFR (MDRD) Af Amer 73, Est GFR (MDRD) Non-Af 60, BUN/Creatinine Ratio 21.0 H, Glucose 147 H, Calcium 9.8, Troponin I High Sens [address] 10/26/21 11:49 IMPRESSION: 1. 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 Low accuracy for detection of new infarct. MR is advised. 2. No large territorial infarction. 3. No intracranial hemorrhage. N.B. : The above Results were Read Back by Christoph Adams MD to Tiny Gaines MD, and understanding confirmed on 10/26/2021 12:25:18 (ET). Electronically Signed: Christoph Adams MD at 12:31 EST Tel , Service support , ADDENDUM: 10/26/21 1238 IMPRESSION: 1. 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 Low accuracy for detection of new infarct. MR is advised. 2. No large territorial infarction. 3. No intracranial hemorrhage. N.B. : The above Results were Read Back by Christoph Adams MD to Tiny Gaines MD, and understanding confirmed on 10/26/2021 12:25:18 (ET). Electronically Signed: Christoph Adams MD at 12:31 EST Tel , Service support , Head/Neck CTA 10/26/21 11:50 IMPRESSION: 1. Patent intracranial arteries. 2. 50% right ICA origin stenosis with probably ulcerated plaque. 3. Left carotid plaque without stenosis. N.B. : The above Results were Read Back by Christoph Adams MD to Tiny Gaines MD, and understanding confirmed on 10/26/2021 12:40:05 (ET). Electronically Signed: Christoph Adams MD at 12:44 EST Tel , Service support , ADDENDUM: 10/26/21 1251 IMPRESSION: 1. Patent intracranial arteries. 2. 50% right ICA origin stenosis with probably ulcerated plaque. 3. Left carotid plaque without stenosis. N.B. : The above Results were Read Back by Christoph Adams MD to Tiny Gaines MD, and understanding confirmed on 10/26/2021 12:40:05 (ET). Electronically Signed: Christoph Adams MD at 12:44 EST Tel , Service support , Assessment & Plan Assessment/Plan (1) Hypertension: QUALIFIERS: Hypertension type: primary hypertension Qualified Code(s): I10 - Essential (primary) hypertension (2) Acute CVA (cerebrovascular accident): (3) Essential hypertension: PLAN: 1. Acute left-sided tingling and numbness suggestive of acute CVA Last known well at 7 PM last night (10/25/21) Patient without history of CVA Admitting NIHSS score of 0 CT of her head showed extensive remote ischemic changes CTA of the head shows right ICA origin stenosis with probable ulcerated plaque Admit for stroke work-up -MRI, 2D echo, check HbA1c, lipid profile Continue on aspirin, Start on statin, PT/OT/ST to evaluate and treat 2. Accelerated hypertension, blood pressures are uncontrolled, Seems to be coming down in the ED Continue with stroke protocol, allowing for permissive hypertension 3. Type II DM, on metformin and glimepiride Would hold both, check HbA1c, continue on insulin sliding scale 4. DVT prophylaxis?Lovenox subcu I discussed and explained in details the various types of CODE STATUS-full code, DNR CCA, DNR CC. Patient chose to be DNR-CCA, no intubation Time spent discussing CODE STATUS 16 minutes Charges/Coding Visit Charges OBSV E&M: 51956 Initial observation care L3
--- NOTE | 2021-10-26 13:12 | NURSING ---
PCU NAUMAH CVA, HYPERTENSION
[2021-10-26] MEDS: 0.9% Normal Saline 1,000 ML 100 ML IV (13:22)
--- NOTE | 2021-10-26 13:49 | ECHOD_ITS ---
Reason For Study: TIA/CVA Procedure This was a 2D Doppler, Color Flow transthoracic echocardiogram. Previous Negative Bubble per echo. Exam performed portable in patient room. Left Ventricle Normal LV size. Left ventricular systolic function is normal. The estimated ejection fraction is 60 %. Stage 1 diastolic dysfunction. No regional wall motion abnormalities noted. Right Ventricle Normal RV size. Normal systolic function. Atria Normal left atrium. Normal right atrium. Mitral Valve Normal mitral valve. Tricuspid Valve Normal tricuspid valve. Mild (1+) tricuspid valve insufficiency. Pulmonary artery systolic pressure is 30 mmHg. Aortic Valve Normal aortic valve. Trisinus/trileaflet aortic valve. Mild (1+) eccentric aortic valve insufficiency. Pulmonic Valve The pulmonic valve is not well visualized. Great Vessels Calcified aortic root. The pulmonary artery is normal size. Normal inferior vena cava. Pericardium/Pleural No pericardial effusion. MMode/2D Measurements & Calculations LVIDd: 4.1 cm IVSd: 0.93 cm Ao root diam: 3.3 cm LVIDs: 2.3 cm LVPWd: 0.76 cm LA dimension: 3.5 cm RVDd: 3.1 cm FS: 42.0 % LAV(MOD-bp): 47.9 ml LA A4 area: 16.5 cm2 RA A4 area: 14.9 cm2 LAV(MOD-bp) Indexed: 26.6 ml/m2 LAV(MOD-sp2): 50.4 ml LAV(MOD-sp4): 43.5 ml Time Measurements MV dec time: 0.49 sec Doppler Measurements & Calculations MV E max ramone: 63.1 cm/sec Lat Peak E' Ramone: 3.9 cm/sec Med Peak E' Ramone: 3.7 cm/sec MV A max ramone: 129.4 cm/sec E/E' lat: 16.3 E/E' med: 16.9 MV E/A: 0.49 MV V2 max: 141.2 cm/sec MV P1/2t max ramone: 61.9 cm/sec Ao V2 max: 142.4 cm/sec MV max P.0 mmHg MV P1/2t: 87.6 msec Ao max P.1 mmHg MV V2 mean: 68.7 cm/sec MV dec slope: 207.1 cm/sec2 MV mean P.4 mmHg MVA(P1/2t): 2.5 cm2 MV V2 VTI: 25.8 cm AI max ramone: 435.4 cm/sec LV V1 max: 112.2 cm/sec PA V2 max: 78.0 cm/sec AI max P.8 mmHg LV V1 max P.0 mmHg AI dec slope: 300.4 cm/sec2 AI P1/2t: 424.5 msec TR max ramone: 250.9 cm/sec TR max P.2 mmHg ECHO/Echo Complete Interpretation Summary Normal LV size. Left ventricular systolic function is normal. The estimated ejection fraction is 60 %. Stage 1 diastolic dysfunction. Pulmonary artery systolic pressure is 30 mmHg. Ordering Physician: Marisa Carey Referring Physician: Janice Azevedo M.D. Performed By: Kraig Alvarenga RCS
[2021-10-26 14:36] LABS: Bedside Glucose 120 mg/dL (70-110)
[2021-10-26] MEDS: Atorvastatin Calcium 80 MG Tablet PO (21:46)
--- NOTE | 2021-10-26 22:07 | PCS.PANDOC ---
PANDEMIC DOCUMENTATION INITIATED: Date: 05/19/2021 Time: 190
[2021-10-26 22:26] LABS: Bedside Glucose 134 mg/dL (70-110)
[2021-10-27] VITALS (8 sets, daily range): BP systolic 174–202; BP diastolic 75–102; PULSE 63–85; RESP 16–18; TEMP 36.4–36.8; O2SAT 94–97
[2021-10-27 06:02] LABS: Absolute Lymphocyte Count 1.59 X10^3/uL (0.83-4.51); Absolute Neutrophil Count 3.9 X10^3/uL (2.0-7.7); Basophil# 0.06 X10^3/uL; Basophil% 0.9 % (0-1); Eosinophil# 0.12 X10^3/uL; Eosinophils% 1.9 % (0-5); Hematocrit 36.8 % (37-47); Hemoglobin 12.2 g/dL (12.0-15.0); Lymphocyte # 1.59 X10^3/ul (0.83-4.51); Lymphocyte % 24.7 % (19-41); Mean Corp Hgb Conc 33.2 g/dL (32-36); Mean Corpuscular Volume 93.6 fL (81-99); Monocyte% 10.9 % (0-10); NRBC Flagged by Analyzer 0 % (0-5); Neutrophil # 3.94 X10^3/uL (2.7-7.7); Neutrophil % 61.3 % (47-70); Platelet Count 229 K/mm3 (150-450); RBC Distribution Width CV 12.7 % (11.6-14.6); RBC Distribution Width SD 43.8 fl (35.1-43.9); Red Blood Count 3.93 M/mm3 (4.2-5.4); White Blood Count 6.4 K/mm3 (4.4-11.0)
[2021-10-27 06:26] LABS: Bedside Glucose 131 mg/dL (70-110)
[2021-10-27 06:46] LABS: ALB/GLOB Ratio 0.7 RATIO (0.9-2.4); AST(SGOT) 18 U/L (15-37); Alanine Aminotransfer ALT/SGPT 18 U/L (13-56); Alkaline Phosphatase 62 U/L (45-117); Anion Gap 6 (5-15); BUN 17 mg/dL (7-18); BUN/Creat Ratio 20.4 RATIO (10-20); Calcium,Total 9.4 mg/dL (8.5-10.1); Chloride 104 mmol/L (98-107); Cholesterol 198 mg/dL (200); Creatinine, Serum 0.83 mg/dL (0.55-1.02); EST Glomerular Filtration Rate 70 mL/min (>60); Est Glom Filt Rate - Afr Amer 85 mL/min (>60); Estimated Creatinine Clearance 50.27 ml/min; Globulin 4.1 g/dL (2.2-4.2); Glucose 99 mg/dL (74-106); High Density Lipoprotein 44 mg/dL; Potassium 3.6 mmol/L (3.5-5.1); Protein, Total 7.1 g/dL (6.4-8.2); Sodium Level 139 mmol/L (136-145); Triglycerides 83 mg/dL; Very Low Density Lipoprotein 17 mg/dL (5-40)
[2021-10-27] MEDS: Enoxaparin 40 MG/0.4 ML Syringe SC (08:13)
[2021-10-27] MEDS: Aspirin 81 MG TAB.CHEW PO (08:13)
[2021-10-27] MEDS: Cholestyramine/Sucrose 4 GM/PACKET PO (08:13)
--- NOTE | 2021-10-27 08:30 | MRI_ITS ---
STUDY: MRI BRAIN WITHOUT CONTRAST REASON FOR EXAM: Female, 76 years old. neuro deficit TECHNIQUE: Standardized multiplanar fat and water weighted pulse sequences were obtained. COMPARISON: CT 10/26/2021 FINDINGS: There is moderate cerebral atrophy with widening of the extra-axial spaces and ventricular dilatation. There are multiple white matter hyperintensities, distributed throughout the deep white matter tracts of the cerebral hemispheres, consistent with moderate chronic white matter ischemic changes. Normal T2* images of the brain without demonstrated susceptibility artifact. There is no demonstrated hemosiderin stain. Normal bilateral basal ganglia. 1 cm oval hyperintensity of the lateral aspect of the right thalamus demonstrates restricted diffusion consistent with a subacute infarct. There is no extra-axial fluid accumulation. Normal flow voids within the major intracranial circulation suggesting patency by spin echo criteria. Normal sella turcica, pituitary gland, infundibular stalk, optic chiasm and hypothalamus. Normal tectal plate and pineal gland. Normal midbrain, patricia and medulla. Normal cerebellum. Normal basal cisterns. Normal bilateral temporal bones. Normal bilateral internal auditory canals. No demonstrated orbital abnormality, within the constraints of a routine brain study. Normal visualized paranasal sinuses. Normal calvarium and skull base. Normal visualized soft tissue structures. Normal visualized upper cervical spine. MRI/Brain without Contrast IMPRESSION: Involutional changes of the brain, as described above. 1 cm subacute infarct of the right thalamus. N.B. : The above Results were Read Back by Selvin Jacinto MD to Moshe Parish RN, and understanding confirmed on 10/27/2021 09:36:40 (ET). Electronically Signed: Selvin Jacinto MD at 9:39 EST Tel , Service support ,
--- NOTE | 2021-10-27 09:40 | TELEMED_ITS ---
[facility] Telemed has confirmed receipt of a request for visit. This document confirms receipt of the order initiating the consult. To find the results of the consultation, please view the patient's reports for the scanned Telemed Consult.
--- NOTE | 2021-10-27 10:30 | CASEMGMT ---
RN CM Face to Face with patient for initial transition planning/care coordination assessment. RN CM introduced self and role at [facility]. Patient lying in bed, alert and oriented. Patient willing to participate in assessment and is able to answer all questions appropriately. Care providers, pharmacy, and demographics verified. Patient wishes to discharge home, will monitor progress with therapy for discharge needs. Patient states she has no further needs or concerns at this time. CM to follow for discharge planning needs that may arise. PCP: Roberto Carlos Specialists:none Preferred Pharmacy: [facility] Insurance: [facility] Prescription Benefit: yes Living Will/HPOA: yes, daughter Justina Worley LNOK: daughter Living Arrangements: Patient lives with daughter in a single story home with one step and grab bar to enter. Patient states she was independent at home. Transportation: self, daughter DME/HHC: Patient states she has raised toilet. Patient denies previous HHC or SNF. Will monitor progress with therapy for discharge needs. Disposition Plan: Patient to discharge home with family support and follow-up plans in place. Lynette LIND, RN, CM
--- NOTE | 2021-10-27 11:19 | PCM.DC ---
Discharge Instructions Diet Discharge Diet: No restrictions Activity Discharge Activity: Return to Normal Activity Weight Bearing Status: Weight bearing as tolerated Dressing / Incision Call your doctor if you observe: Fever of 101 or Higher, Numbness or Tingling, Shortness of breath, Dizziness, Chest pain, Increased palpitations (irregular heartbeat) and Calf discomfort Follow Up Care Please Follow Up With: Primary care provider When: Within the next two weeks. Test Results: Test results from this visit will be discussed in further detail at your follow-up appointment, if applicable. Discharge Plan Admission Admit Date/Time: 10/26/21 16:16 Primary Reason for Your Visit: Stroke Attending Provider: Domingo Carson Primary Care Provider: Janice Azevedo Discharge Orders/Prescriptions Prescriptions: New atorvastatin 80 mg Tablet 80 mg PO QHS Qty: 30 RF: 0 aspirin 325 mg tablet 325 mg PO DAILY Qty: 30 RF: 0 Continued glimepiride 1 MG tablet 1.5 mg PO DAILY RF: 0 metformin 1,000 MG tablet 1,000 mg PO DAILY RF: 0 losartan 50 mg Tablet 50 mg PO DAILY RF: 0 pentoxifylline 400 mg Tablet Extended Release 400 mg PO DAILY RF: 0 [id number] Tablet 1 tab PO DAILY RF: 0 cholecalciferol (vitamin D3) [Vitamin D3] 25 mcg (1,000 unit) Capsule 25 mcg PO DAILY RF: 0 Discontinued aspirin 81 MG tablet,chewable 81 mg PO DAILY@0800 RF: 0 Referrals / Follow Up: Janice Azevedo DO [Primary Care Provider] - Within 2 Weeks Disposition Disposition (needs filled in before D/C Order can be placed): Home, Self Care
[2021-10-27 11:35] LABS: Bedside Glucose 218 mg/dL (70-110)
--- NOTE | 2021-10-27 12:00 | CASEMGMT ---
SW completed a PHQ 9 with patient as she had a Stroke. Patient scored a 0 which indicates no depression. Patient declined information for counseling or Stroke support group. Michelle MCKNIGHT
[2021-10-27] MEDS: Losartan Potassium 50 MG Tablet PO (13:22)
--- NOTE | 2021-10-27 14:37 | CASEMGMT ---
Addendum entered by Lynette Jane 10/27/21 15:19: Pt updated on [facility] and HHC, voices understanding and voices no further questions/concerns/needs. Melody BROWN CM Addendum entered by Lynette Jane 10/27/21 15:15: [place] [facility] [place]. Melody BROWN CM Addendum entered by Lynette Jane 10/27/21 14:54: This RN CM back to room to see if pt decided on HHC and pt states [place] as her 1st choice. Referral faxed to [facility]. Call to [facility] to notify of referral and per Rosy, they should be able to accept pt at this time. Melody BROWN CM Original Note: Therapy recommending HHC vs OP therapy and pt states she would like HHC at this time for PT/OT. Pt was provided a list of HHC providers including quality and resource use data and consistent with the patient?s preferred geographic region, medical needs, and insurance network. CM to check back with pt regarding HHC. Therapy is also recommending [facility] at discharge and pt states no preference for DME company. [place] [facility] [place] to follow. Melody BROWN CM
--- NOTE | 2021-10-27 14:45 | DS.PCM_ITS ---
Documented by User: Travis HAYDEN 10/27/21 14:54 Providers Date of Admission: 10/26/21 Primary Care Physician: Dr. Janice Azevedo DO Reason For Visit: TIA/CVA Diagnosis Discharge Diagnosis (1) Hypertension: Status: Chronic Code(s): I10 - Essential (primary) hypertension Qualifiers: Hypertension type: primary hypertension Qualified Code(s): I10 - Essential (primary) hypertension (2) Acute CVA (cerebrovascular accident): Status: Acute Code(s): I63.9 - Cerebral infarction, unspecified (3) Essential hypertension: Status: Acute Code(s): I10 - Essential (primary) hypertension Medications at Discharge Home Medications glimepiride 1.5 mg PO DAILY 03/11/15 metformin 1,000 mg PO DAILY 03/11/15 cholecalciferol (vitamin D3) [Vitamin D3] 25 mcg PO DAILY 10/26/21 losartan 50 mg PO DAILY 10/26/21 qjinmrwkvodu-aenpdcmp-ynmlun 1 tab PO DAILY 10/26/21 pentoxifylline 400 mg PO DAILY 10/26/21 aspirin 325 mg PO DAILY #30 tab 10/27/21 atorvastatin 80 mg PO QHS #30 tab 10/27/21 Hospital Course Procedures 2-D Echocardiogram and Transthoracic echo Summary of Care Provided Minutes Spent on Discharge: 20 Hospital Course: Patient is a 76-year-old female who was admitted to the hospital on 10/26/2021 for evaluation and management of strokelike symptoms. Included left facial weakness as well as left sided weakness in the arms and legs, which has gotten significantly better over the course of the evening prior to admission. Brain MRI was obtained and demonstrated a subacute infarct of the right thalamus. Echocardiogram was also obtained and demonstrated normal LV size and systolic function, an EF of 60% and stage I diastolic dysfunction. SOC consult was obtained and recommendations are as follows increase aspirin to 325 mg daily, initiate high intensity statin, and continue with tight glycemic control. High intensity statin was initiated on discharge due to elevated LDL of 137. Diabetic regimen was discontinued as her hemoglobin A1c was within goal range at 6. All other home medications were continued. Patient is to follow-up with primary care provider within the next 2 weeks. Patient seen by Travis Luevano PA-C, under the supervision of Dr. Carson. Physical Exam Narrative Patient is a 68-year-old female currently resting in bed, alert and orient x3. Patient does have minor weakness about the left side of her body, although this is not significant and patient reports that it is improved from yesterday. Patient denies any numbness/tingling. Does not appear in acute distress. Const alert, oriented x3 and no apparent distress HEENT normocephalic, head/scalp atraumatic and hearing grossly normal bilaterally Eyes PERRL, EOMs intact bilaterally and conjunctivae normal Neck no lymphadenopathy, supple and no JVD Resp normal respiratory effort, no retractions, no use of accessory muscles and clear to auscultation bilaterally Cardio regular rate, regular rhythm, no murmurs and no JVD GI normal to inspection, nondistended, normoactive bowel sounds, soft to palpation and non-tender Extremity normal to inspection, full ROM and no clubbing, cyanosis or edema Skin no rashes or lesions noted, no wounds and skin turgor normal Neuro Neuro Narrative: Left-sided weakness noted about the arms and legs. Patient denies any numbness/tingling in the upper or lower extremities, denies vision changes, headache or speech difficulty. Psych affect normal Weight / BMI Weight Weight: 156 lb 15.506 oz Body Mass Index (BMI) 26.5 ABG / Lab / Microbiology Data Result Diagrams: 10/27/21 04:15 10/27/21 04:15 Laboratory: Laboratory Results - last 24 hr 10/26/21 21:49: POC Glucose 134 H 10/27/21 04:15: WBC 6.4, RBC 3.93 L, Hgb 12.2, Hct 36.8 L, MCV 93.6, MCH 31.0, MCHC 33.2, RDW Std Deviation 43.8, RDW Coeff of [place] 12.7, Plt Count 229, MPV 11.0, Immature Gran % (Auto) 0.300, Neut % (Auto) 61.3, Lymph % (Auto) 24.7, [place] % (Auto) 10.9 H, Eos % (Auto) 1.9, Baso % (Auto) 0.9, Absolute Neuts (auto) 3.9, Absolute Lymphs (auto) 1.59, Nucleated RBC % 0 10/27/21 04:15: Sodium 139, Potassium 3.6, Chloride 104, Carbon Dioxide 29.0, Anion Gap 6, BUN 17, Creatinine 0.83, Estim Creat Clear Calc 50.27, Est GFR (MDRD) Af Amer 85, Est GFR (MDRD) Non-Af 70, BUN/Creatinine Ratio 20.4 H, Glucose 99, Calcium 9.4, Total Bilirubin 0.70, AST 18, ALT 18, Alkaline Phosphatase 62, Total Protein 7.1, Albumin 3.0 L, Globulin 4.1, Albumin/Globulin Ratio 0.7 L, Triglycerides 83, Cholesterol 198, LDL Cholesterol 137 H, VLDL Cholesterol 17, HDL Cholesterol 44 10/27/21 06:18: POC Glucose 131 H 10/27/21 11:29: POC Glucose 218 H Radiography Diagnostic Testing: Radiology Impression Echocardiogram 10/26/21 13:49 Interpretation Summary Normal LV size. Left ventricular systolic function is normal. The estimated ejection fraction is 60 %. Stage 1 diastolic dysfunction. Pulmonary artery systolic pressure is 30 mmHg. Ordering Physician: Marisa Carey Referring Physician: Janice Azevedo M.D. Performed By: Kraig Alvarenga RCS Brain MRI 10/27/21 08:30 IMPRESSION: Involutional changes of the brain, as described above. 1 cm subacute infarct of the right thalamus. N.B. : The above Results were Read Back by Selvin Jacinto MD to Moshe Parish RN, and understanding confirmed on 10/27/2021 09:36:40 (ET). Electronically Signed: Selvin Jacinto MD at 9:39 EST Tel , Service support , ADDENDUM: 10/27/21 0946 IMPRESSION: Involutional changes of the brain, as described above. 1 cm subacute infarct of the right thalamus. N.B. : The above Results were Read Back by Selvin Jacinto MD to Moshe Parish RN, and understanding confirmed on 10/27/2021 09:36:40 (ET). Electronically Signed: Selvin Jacinto MD at 9:39 EST Tel , Service support , D/C Instructions Discharge Diet: No restrictions Weight Bearing Status: Weight bearing as tolerated Call your doctor if you observe: Fever of 101 or Higher, Numbness or Tingling, Shortness of breath, Dizziness, Chest pain, Increased palpitations (irregular heartbeat) and Calf discomfort Please Follow Up With: Primary care provider When: Within the next two weeks. Meaningful Use Info Meaningful Use Diagnoses (Choose all that apply): Ischemic CVA CVA Therapy Assessed for PT,OT and/or ST?: Yes Ischemic Stroke Antithrombotic order at d/c?: Yes Dx of Atrial fib/flutter?: No Statins at discharge?: Yes Primary Dx Acute Ischemic CVA?: Yes IV tPA ordered during stay?: No Reason IV t-PA not ordered: Treatment not Indicated Discharge Plan Admission Admit Date/Time: 10/26/21 16:16 Primary Reason for Your Visit: Stroke Attending Provider: Domingo Carson Primary Care Provider: Janice Azevedo Discharge Orders/Prescriptions Prescriptions: New atorvastatin 80 mg Tablet 80 mg PO QHS Qty: 30 RF: 0 aspirin 325 mg tablet 325 mg PO DAILY Qty: 30 RF: 0 Continued glimepiride 1 MG tablet 1.5 mg PO DAILY RF: 0 metformin 1,000 MG tablet 1,000 mg PO DAILY RF: 0 losartan 50 mg Tablet 50 mg PO DAILY RF: 0 pentoxifylline 400 mg Tablet Extended Release 400 mg PO DAILY RF: 0 uqyrrzrotcbr-dngpiwob-ogyhot Tablet 1 tab PO DAILY RF: 0 cholecalciferol (vitamin D3) [Vitamin D3] 25 mcg (1,000 unit) Capsule 25 mcg PO DAILY RF: 0 Discontinued aspirin 81 MG tablet,chewable 81 mg PO DAILY@0800 RF: 0 Referrals / Follow Up: Janice Azevedo DO [Primary Care Provider] - Within 2 Weeks Disposition Disposition (needs filled in before D/C Order can be placed): Home, Self Care Documented by User: Dr. Domingo Carson MD 10/27/21 14:58 Providers Date of Admission: 10/26/21 Reason For Visit: TIA/CVA Medications at Discharge Home Medications glimepiride 1.5 mg PO DAILY 03/11/15 metformin 1,000 mg PO DAILY 03/11/15 cholecalciferol (vitamin D3) [Vitamin D3] 25 mcg PO DAILY 10/26/21 losartan 50 mg PO DAILY 10/26/21 jbmhioymxakp-ktrzrpij-rujbhi 1 tab PO DAILY 10/26/21 pentoxifylline 400 mg PO DAILY 10/26/21 aspirin 325 mg PO DAILY #30 tab 10/27/21 atorvastatin 80 mg PO QHS #30 tab 10/27/21 Hospital Course Procedures 2-D Echocardiogram Summary of Care Provided Minutes Spent on Discharge: 40 Hospital Course: This patient was seen in conjunction with Travis Luevano PA-C. I have independently interviewed and examined the patient and reviewed pertinent historical, laboratory, and other data. Please refer to Travis Luevano PA-C's note for details of this patient's presentation, findings, and recommendations. I have reviewed Travis Luevano PA-C's note and concur with documented findings. In brief, patient is a 73-year-old lady with multiple comorbidities including essential hypertension who presented with left-sided facial droop and weakness with paresthesias involving upper extremity. Clinical suspicion of acute CVA was entertained admitted to a monitored bed for subsequent management. MRI obtained demonstrated subacute infarct involving the right thalamus. Patient was seen in consultation by [facility] telemetry neurology notes and recommendations re viewed Hospital course; Total time spent by myself and the advanced practice practitioner evaluating patient, reviewing labs, subsequent management decisions, discussion with patient as well as other providers 40 minutes ( 25 of which was spent by myself) ABG / Lab / Microbiology Data Result Diagrams: 10/27/21 04:15 10/27/21 04:15 Discharge Plan Admission Admit Date/Time: 10/26/21 16:16 Primary Reason for Your Visit: Stroke Attending Provider: Domingo Carson Primary Care Provider: Janice Azevedo Discharge Orders/Prescriptions Prescriptions: New atorvastatin 80 mg Tablet 80 mg PO QHS Qty: 30 RF: 0 aspirin 325 mg tablet 325 mg PO DAILY Qty: 30 RF: 0 Continued glimepiride 1 MG tablet 1.5 mg PO DAILY RF: 0 metformin 1,000 MG tablet 1,000 mg PO DAILY RF: 0 losartan 50 mg Tablet 50 mg PO DAILY RF: 0 pentoxifylline 400 mg Tablet Extended Release 400 mg PO DAILY RF: 0 gmglapudevll-wvzwkfcw-dyyqec Tablet 1 tab PO DAILY RF: 0 cholecalciferol (vitamin D3) [Vitamin D3] 25 mcg (1,000 unit) Capsule 25 mcg PO DAILY RF: 0 Discontinued aspirin 81 MG tablet,chewable 81 mg PO DAILY@0800 RF: 0 Referrals / Follow Up: Janice Azevedo DO [Primary Care Provider] - Within 2 Weeks Disposition Disposition (needs filled in before D/C Order can be placed): Home, Self Care Charges/Coding Visit Charges Inpatient E&M: 16815 Disch Hosp Hospital Course Imaging Results Imaging Results: 10/27/21 08:30 Brain without Contrast [MRI] Routine Procedures Procedures: 2-D Echocardiogram
== END 2021-10-27 17:19 | disposition home or self-care (01) | DRG 66 ==
LOC: ED 13:10 → PCU 13:34
PROVIDERS: Admitting Provider Internal Medicine; Emergency Provider Emergency Medicine; PCP Internal Medicine; Visit Provider Internal Medicine
DX: I63.9 Cerebral infarction, unspecified (principal); E11.9 Type 2 diabetes mellitus without complications; E78.00 Pure hypercholesterolemia, unspecified; I10 Essential (primary) hypertension; Z79.82 Long term (current) use of aspirin; Z66 Do not resuscitate
CPT/HCPCS: 36415; 70450; 70496; 70498; 70551; 71045; 80048; 80053; 80061; 82962; 83036; 84484; 85025; 85610; 85730; 92610; 93005; 93306; 94762; 97162; 97166; 99251; 99285; A4216; G0463

== ENCOUNTER 2021-11-30 17:14 | Emergency (ER) | payer MEDICARE, OTHER, SELFPAY ==
[2021-11-30 17:15] VITALS: BP 183/87; PULSE 92; RESP 16; TEMP 36.1; O2SAT 100; BMI 27.4
--- NOTE | 2021-11-30 17:53 | EKG12_ITS ---
Test Reason : Blood Pressure : / mmHG Vent. Rate : 082 BPM Atrial Rate : 082 BPM P-R Int : 130 ms QRS Dur : 078 ms QT Int : 384 ms P-R-T Axes : 016 001 033 degrees QTc Int : 448 ms Normal sinus rhythm Left ventricular hypertrophy with repolarization abnormality Abnormal ECG Confirmed by HELGA BISHOP, SHAHLA ([id number]), primer expeditor and drier KEN AVALOS ([id number]) on 12/02/2021 11:09:04 AM Referred By: GERONIMO Confirmed By:SHAHLA PARTIDA MD
--- NOTE | 2021-11-30 17:54 | EX.ED.DYSGE1 ---
HPI History of Present Illness Chief Complaint: Nausea/Vomiting/Diarrhea Narrative Narrative: Patient with past medical history of hypertension presents with nausea, vomiting, and diarrhea that began this morning at around 5:00. This is happened to her previously, but she has never come to the hospital for this. She denies any abdominal pain. No fevers or chills but states that she feels generally weak. She states she was able to take her blood pressure medication today but unsure if she held it down. She presents with her daughter. Patient states that she vomited 5 times without any blood in her emesis. Whenever she strains she has loose stool that is also nonbloody. No prior abdominal surgeries. [facility] Medical History Acute CVA (cerebrovascular accident) Diabetes Hypertension Home Medications glimepiride 1.5 mg PO DAILY 03/11/15 [History Last Taken Unknown] metformin 1,000 mg PO DAILY 03/11/15 [History Last Taken Unknown] cholecalciferol (vitamin D3) [Vitamin D3] 25 mcg PO DAILY 10/26/21 [History Last Taken Unknown] losartan 50 mg PO DAILY 10/26/21 [History Last Taken Unknown] zjgcfmkdzbai-ypgcthdd-iqjfbg 1 tab PO DAILY 10/26/21 [History Last Taken Unknown] pentoxifylline 400 mg PO DAILY 10/26/21 [History Last Taken Unknown] aspirin 325 mg PO DAILY #30 tab 10/27/21 [Rx Last Taken Unknown] atorvastatin 80 mg PO QHS #30 tab 10/27/21 [Rx Last Taken Unknown] cephalexin 500 mg PO Q12 #14 cap 11/30/21 [Rx Last Taken Unknown] ondansetron 4 mg PO Q8H PRN #10 tab 11/30/21 [Rx Last Taken Unknown] Allergy/AdvReac Type Severity Reaction Status Date / Time No Known Allergies Allergy Verified 10/26/21 11:48 Family History Father Myocardial infarction Brother CAD (coronary artery disease) Mother Cancer Social History household members: family housing: house Smoking Status: Never smoker substance use type: does not use what type of physical activity do you participate in: walking ROS ROS ED ROS Narrative Constitutional: No fever, no chills. Generalized weakness. HEENT: No sore throat. No neck pain. No loss of vision. No rhinorrhea. Cardiovascular: No chest pain. No palpitations. No pedal edema. Respiratory: No cough, no shortness of breath. Abdominal: No abdominal pain. Positive nausea. 5 episodes of nonbloody vomiting. Positive diarrhea/loose stool, 5 episodes. Genitourinary: No dysuria. No hematuria. Musculoskeletal: No myalgias. No arthralgias. Neurologic: No headaches. No dizziness. No lightheadedness. Skin: No rash. No change in color. Psychiatric: No depression. No anxiety. EXAM Physical Exam Narrative Exam Narrative: Afebrile. Vital signs noted. HEENT: Normocephalic. Atraumatic. PERRL, EOMI. Neck soft and supple. No point tenderness or step off. Slightly tacky mucous membranes. Cardiovascular: Regular rate and rhythm. No murmurs, rubs, or gallops appreciated. Respiratory: No tachypnea. Lungs clear to auscultation bilaterally. Gastrointestinal: Abdomen soft, nontender, with normoactive bowel sounds. No rebound or guarding. Neurological: Awake. Alert. Nonfocal, nonlateralizing. Skin: No rash. Normal color. No pallor. Musculoskeletal: No pedal edema. Full range of motion extremities. Const Vital Signs: 11/30/21 17:15 11/30/21 19:41 11/30/21 20:18 Temperature 96.9 F L Temperature Source Temporal Pulse Rate 92 91 90 Respiratory Rate 16 16 Blood Pressure 183/87 H 194/85 H 176/69 H Blood Pressure Mean 119 121 104 Pulse Ox 100 98 96 Oxygen Delivery Method Room Air Room Air Room Air MDM MDM MDM Narrative Medical decision making narrative: Comprehensive work-up was pursued. She does have an elevated blood pressure so she will be given hydralazine. She was administered ondansetron and IV fluids. CBC, CMP, and lipase were obtained. This is along with EKG. her laboratory work is grossly unremarkable, WBC count normal at 9.3, hemoglobin stable at 13.4. Platelet count normal at 250. She has slightly elevated BUN of 22 with a creatinine of 0.92 but other electrolytes are grossly unremarkable. AST and ALT are normal. Lipase normal at 123. Urinalysis shows mild ketones, and WBCs 10-25 with 4+ bacteria. She will be treated as a cystitis. Her blood pressure had been elevated and she received hydralazine, it is now 156 systolic. Her EKG demonstrates normal sinus rhythm at 82 bpm without ectopy or acute ST changes. Upon repeat examination after Zofran, she feels improved. There is been no vomiting here in the ED. I feel she can be discharged safely home with follow-up to her primary care provider. She was given prescriptions for Keflex 500 mg twice daily for the next 7 days for her cystitis, and for Zofran No. 10. Return instructions were reviewed. Disposition is discharged home in stable condition. Lab Data Attestation: I reviewed the patient's lab results. Labs: Laboratory Results - last 24 hr 11/30/21 11/30/21 11/30/21 17:37 17:37 19:35 WBC 9.3 RBC 4.18 L Hgb 13.4 Hct 38.1 MCV 91.1 MCH 32.1 H MCHC 35.2 RDW Std Deviation 41.8 RDW Coeff of [place] 12.7 Plt Count 250 MPV 11.9 Immature Gran % (Auto) 0.300 Neut % (Auto) 83.0 H Lymph % (Auto) 12.8 L [place] % (Auto) 3.5 Eos % (Auto) 0.0 Baso % (Auto) 0.4 Absolute Neuts (auto) 7.7 Absolute Lymphs (auto) 1.18 Nucleated RBC % 0 Sodium 138 Potassium 4.0 Chloride 105 Carbon Dioxide 24.0 Anion Gap 9 BUN 22 H Creatinine 0.92 Estim Creat Clear Calc 43.52 Est GFR (MDRD) Af Amer 76 Est GFR (MDRD) Non-Af 63 BUN/Creatinine Ratio 23.9 H Glucose 180 H Calcium 9.8 Total Bilirubin 0.70 AST 35 ALT 36 Alkaline Phosphatase 81 Total Protein 7.7 Albumin 3.4 Globulin 4.3 H Albumin/Globulin Ratio 0.8 L Lipase 123 Urine Color Yellow Urine Clarity Cloudy Urine pH 6.0 Ur Specific [place] 1.015 Urine Protein 30 H Urine Glucose (UA) Normal Urine Ketones 50 H Urine Occult Blood 25 H Urine Nitrite Negative Urine Bilirubin Negative Urine Urobilinogen Normal Ur Leukocyte Esterase 25 H Urine RBC 0-5 SEEN Urine WBC 10-25 SEEN Ur Squamous Epith Cells 0-5 SEEN Urine Bacteria 4+ Urine Mucus 0 SEEN Discharge Plan Triage Chief Complaint: Nausea/Vomiting/Diarrhea ED Provider: Moshe Barrios Dx/Rx/DC Orders Clinical Impression: Nausea vomiting and diarrhea, UTI (urinary tract infection), Hypertension Instructions: ED Diet for Vomiting or ..., ED High Blood Pressure Hypertension, ED CYSTITIS Female Adult, ED Gastroenteritis, Viral (Adult) Prescriptions: New ondansetron 4 mg tablet,disintegrating 4 mg PO Q8H PRN (Reason: nausea and vomiting) Qty: 10 RF: 0 cephalexin 500 mg capsule 500 mg PO Q12 Qty: 14 RF: 0 No Action glimepiride 1 MG tablet 1.5 mg PO DAILY RF: 0 metformin 1,000 MG tablet 1,000 mg PO DAILY RF: 0 losartan 50 mg Tablet 50 mg PO DAILY RF: 0 pentoxifylline 400 mg Tablet Extended Release 400 mg PO DAILY RF: 0 tmdsuisbnxve-hwbkzcxc-bbnssg Tablet 1 tab PO DAILY RF: 0 cholecalciferol (vitamin D3) [Vitamin D3] 25 mcg (1,000 unit) Capsule 25 mcg PO DAILY RF: 0 atorvastatin 80 mg Tablet 80 mg PO QHS Qty: 30 RF: 0 aspirin 325 mg tablet 325 mg PO DAILY Qty: 30 RF: 0 Primary Care Provider: Janice Azevedo Referrals: Janice Azevedo DO [Primary Care Provider] - 1-2 Days if not improving Disposition Disposition: Home, Self Care
[2021-11-30] MEDS: hydrALAZINE 20 MG/ML Vial 5 MG IV (18:04)
[2021-11-30] MEDS: Ondansetron 4 MG/2 ML Vial IV (18:04)
[2021-11-30] MEDS: 0.9% Normal Saline 1,000 ML 1000 ML IV (18:05)
[2021-11-30 18:34] LABS: Absolute Lymphocyte Count 1.18 X10^3/uL (0.83-4.51); Absolute Neutrophil Count 7.7 X10^3/uL (2.0-7.7); Basophil# 0.04 X10^3/uL; Basophil% 0.4 % (0-1); Hematocrit 38.1 % (37-47); Hemoglobin 13.4 g/dL (12.0-15.0); Lymphocyte # 1.18 X10^3/ul (0.83-4.51); Lymphocyte % 12.8 % (19-41); Mean Corp Hgb Conc 35.2 g/dL (32-36); Mean Corpuscular Hgb 32.1 pg (27.0-32.0); Mean Corpuscular Volume 91.1 fL (81-99); Mean Platelet Vol. 11.9 fl (6.2-12.0); Monocyte# 0.32 X10^3/uL; Monocyte% 3.5 % (0-10); NRBC Flagged by Analyzer 0 % (0-5); Neutrophil # 7.68 X10^3/uL (2.7-7.7); Platelet Count 250 K/mm3 (150-450); RBC Distribution Width CV 12.7 % (11.6-14.6); RBC Distribution Width SD 41.8 fl (35.1-43.9); Red Blood Count 4.18 M/mm3 (4.2-5.4); White Blood Count 9.3 K/mm3 (4.4-11.0)
[2021-11-30 18:46] LABS: ALB/GLOB Ratio 0.8 RATIO (0.9-2.4); AST(SGOT) 35 U/L (15-37); Alanine Aminotransfer ALT/SGPT 36 U/L (13-56); Albumin, Serum 3.4 g/dL (3.2-5.0); Alkaline Phosphatase 81 U/L (45-117); Anion Gap 9 (5-15); BUN 22 mg/dL (7-18); BUN/Creat Ratio 23.9 RATIO (10-20); Calcium,Total 9.8 mg/dL (8.5-10.1); Chloride 105 mmol/L (98-107); Creatinine, Serum 0.92 mg/dL (0.55-1.02); EST Glomerular Filtration Rate 63 mL/min (>60); Est Glom Filt Rate - Afr Amer 76 mL/min (>60); Estimated Creatinine Clearance 43.52 ml/min; Globulin 4.3 g/dL (2.2-4.2); Glucose 180 mg/dL (74-106); Lipase 123 U/L (73-393); Protein, Total 7.7 g/dL (6.4-8.2); Sodium Level 138 mmol/L (136-145)
[2021-11-30 19:41] VITALS: BP 194/85; PULSE 91; RESP 16; O2SAT 98
[2021-11-30 19:45] LABS: Mucous, Urine 0 SEEN /hpf (<or=2+)
[2021-11-30 19:46] LABS: Color, Urine Yellow (Yellow); Glucose, Dipstick Normal (Normal); Ketone-Dipstick 50 mg/dl (Negative); Leukocyte Esterase-Dipstick 25 /ul (Negative); Nitrite-Dipstick Negative (Negative); Occult Blood-Urine 25 /ul (Negative); Protein-Dipstick 30 mg/dl (Negative); Specific Gravity, Urine 1.015 (1.002-1.030); Urine Bilirubin Dipstick Negative (Negative); Urine Clarity Cloudy (Clear); Urine Urobilinogen Normal (Normal)
[2021-11-30 19:51] LABS: Bacteria 4+ /hpf (None Seen)
[2021-11-30 19:52] LABS: Red Blood Cells-Urine 0-5 SEEN /hpf (0-5); Squamous Epithelial Cells - UA 0-5 SEEN /hpf (5-10)
[2021-11-30 19:53] LABS: White Blood Cells 10-25 SEEN /hpf (0-5)
[2021-11-30] MEDS: hydrALAZINE 20 MG/ML Vial 10 MG IV (19:57)
[2021-11-30 20:18] VITALS: BP 176/69; PULSE 90; O2SAT 96
[2021-11-30] MEDS: Cephalexin 250 MG Capsule 500 MG PO (21:02)
[2021-11-30 21:03] VITALS: BP 168/69
== END 2021-11-30 21:11 | disposition home or self-care (01) ==
PROVIDERS: Emergency Provider Emergency Medicine; PCP Internal Medicine; Visit Provider Emergency Medicine
DX: N39.0 Urinary tract infection, site not specified (principal); E11.9 Type 2 diabetes mellitus without complications; R11.2 Nausea with vomiting, unspecified; R19.7 Diarrhea, unspecified; I10 Essential (primary) hypertension
CPT/HCPCS: 80053; 81001; 83690; 85025; 93005; 99284; J7030; A4216; J2405

== ENCOUNTER 2022-02-18 08:45 | Emergency (ER) | payer MEDICARE, OTHER, SELFPAY ==
[2022-02-18 08:45] VITALS: BP 117/84; PULSE 102; RESP 11; TEMP 36.6; O2SAT 98; BMI 25.5
--- NOTE | 2022-02-18 08:55 | EKG12_ITS ---
Test Reason : TINGLING Blood Pressure : / mmHG Vent. Rate : 097 BPM Atrial Rate : 097 BPM P-R Int : 128 ms QRS Dur : 088 ms QT Int : 354 ms P-R-T Axes : 019 010 039 degrees QTc Int : 449 ms Normal sinus rhythm Nonspecific ST and T wave abnormality Abnormal ECG Confirmed by SHRAVAN BISHOP, ADILENE ([id number]), editor city KEN AVALOS ([id number]) on 02/20/2022 10:48:12 A M Referred By: SKINNY Confirmed By:ANSELMO CHENEY MD
--- NOTE | 2022-02-18 08:55 | CT_ITS ---
STUDY: CT BRAIN WITHOUT CONTRAST REASON FOR EXAM: Female, 76 years old. Facial tingling. Recent stroke. RADIATION DOSAGE (If Supplied By Facility): CTDIvol = ( 44.99 ) mGy, DLP = ( 829.85 ) mGycm TECHNIQUE: Transaxial CT imaging of the brain was performed without administration of intravenous contrast material. Individualized dose optimization techniques were used for this CT. COMPARISON: Comparison is made with prior study dated 10/26/2021. FINDINGS: Normal soft tissue structures. Normal calvarium. There is mild cerebral atrophy with widening of the extra-axial spaces and ventricular dilatation. There are areas of decreased attenuation within the white matter tracts of the supratentorial brain, consistent with microvascular disease changes. Stable bilateral lacunar infarcts worse in the body of the right caudate nucleus. Normal brainstem. There is a 5.7 mm focal bleed in the posterior aspect of the right superior cerebellar peduncle. There are no findings of an acute ischemic infarction. Normal visualized paranasal sinuses. CT/Brain/Head without Contrast IMPRESSION: 5.7 mm focal bleed in the posterior aspect of the right superior cerebellar peduncle. Stable cerebral atrophy. Electronically Signed: Bridger Angel MD at 9:35 EDT ,
--- NOTE | 2022-02-18 08:57 | ED.VIS.STROK ---
HPI History of Present Illness Chief Complaint: Numb/Ting Narrative Narrative: 76-year-old female with history of stroke currently on aspirin 325 mg daily presenting with facial tingling on the left. She states she woke up with this. She has not had facial droop, slurred speech, visual complaints. She has been able to move all 4 extremities.She states that last ti Patient does not have any chest pain or shortness of breath. She has been in her normal state of health. me she had a stroke she had some tingling which is similar. PFSH PFS Medical History Acute CVA (cerebrovascular accident) Diabetes Hypertension Home Medications metformin 1,000 mg PO BID 03/11/15 [History Last Taken Unknown] cholecalciferol (vitamin D3) [Vitamin D3] 25 mcg PO DAILY 10/26/21 [History Last Taken Unknown] losartan 50 mg PO DAILY 10/26/21 [History Last Taken Unknown] rgjlqjzlyqwn-vkakiqua-pmnjpn 1 tab PO DAILY 10/26/21 [History Last Taken Unknown] pentoxifylline 400 mg PO DAILY 10/26/21 [History Last Taken Unknown] aspirin 325 mg PO DAILY #30 tab 10/27/21 [Rx Last Taken Unknown] ondansetron 4 mg PO Q8H PRN #10 tab 11/30/21 [Rx Last Taken Unknown] amlodipine 5 mg PO DAILY 02/18/22 [History Last Taken Unknown] Allergy/AdvReac Type Severity Reaction Status Date / Time No Known Allergies Allergy Verified 02/18/22 08:48 Family History Father Myocardial infarction Brother CAD (coronary artery disease) Mother Cancer Social History household members: family housing: house Smoking Status: Never smoker substance use type: does not use what type of physical activity do you participate in: walking ROS ROS ED Constitutional Constitutional ED: Denies chills or fever(s) Eyes Eyes: Denies blurry vision or diplopia ENT ENT ED: Denies rhinorrhea Cardiovascular Cardiovascular: Denies chest pain or palpitations Respiratory/Chest Respiratory/Chest: Denies cough, dyspnea or sputum Gastrointestinal Gastrointestinal: Denies abdominal pain, diarrhea, nausea or vomiting Genitourinary Genitourinary ED: Denies dysuria or hematuria Musculoskeletal Musculoskeletal: Denies arthralgias, myalgias or neck pain Integumentary Denies abscess or rash Neurologic Neurologic: Reports other Details: Tingling sensation to left cheek ; Denies headache(s) Psychiatric Psychiatric: Denies anxiety or depression EXAM Physical Exam Const Vital Signs: 02/18/22 08:45 Temperature 97.9 F Temperature Source Temporal Pulse Rate 102 H Respiratory Rate 11 L Blood Pressure 117/84 H Blood Pressure Mean 95 Pulse Ox 98 Oxygen Delivery Method Room Air Positive well nourished General Appearance ED: NAD HEENT Reports moist mucous membranes atraumatic Eyes PERRL and EOMs intact bilaterally Chest Wall inspection of chest normal and palpation of chest normal Resp normal respiratory effort and clear to auscultation bilaterally GI normal to inspection, nondistended, normoactive bowel sounds Neuro oriented x3, CN's II-XII intact bilaterally, moves all extremities, no focal motor deficits and no sensory deficits noted Neuro Narrative: NIH = 0 Sensorium / Orientation: awake and alert; Negative for confused Speech: speech normal; Negative for expressive aphasia, receptive aphasia or total aphasia Motor Exam: strength 5/5 throughout Psych mental status grossly normal Skin no wounds General Skin Exam: Negative for jaundice Lesions: no lesions Rashes: no rashes STROKE Vital Signs/Narrative: Vital Signs Temp Pulse Resp BP Pulse Ox 02/18/22 08:45 97.9 F 102 H 11 L 117/84 H 98 MDM MDM MDM Narrative Medical decision making narrative: Patient presenting with facial tingling on the left. This is a new issue. Patient with recent stroke on aspirin only. No history of trauma. After discussion it was determined that the patient does not take her amlodipine it was prescribed for her previously. Her initial blood pressure was normal however she is up now 180 systolic on recheck. Patient given 20 mg of labetalol. CBC is obtained and is unremarkable. BMP shows normal renal function and electrolytes. High sensitive troponin is 11. EKG on my interpretation shows a normal sinus rhythm with a ventricular rate of [address]-T wave changes. Chest x-ray on my interpretation shows no acute cardiopulmonary process and radiologist agree. CT of the brain is obtained and radiologist interprets this is a 5.7 mm focal bleed in the posterior aspect of the right superior cerebellar peduncle. Patient reevaluated and there have been no new neurodeficits. She feels otherwise well. I discussed the case with Dr. Mcgee of neurosurgery at [facility] who recommended transfer to [facility]. The accepting physician is Dr. Rodrigez in the emergency room. Patient counseled on all findings. Given the time delay that would occur due to ground transport I did call [employer] who is currently check in the weather status but plans to fly. Patient was transported in medically stable condition. Impression: 1. Left facial paresthesias 2. Hypertension 3. Intracranial hemorrhage Lab Data Labs: Laboratory Results - last 24 hr 02/18/22 02/18/22 02/18/22 08:49 08:49 09:10 WBC 9.9 RBC 4.10 L Hgb 12.8 Hct 38.5 MCV 93.9 MCH 31.2 MCHC 33.2 RDW Std Deviation 49.4 H RDW Coeff of Ann [place] 14.3 Plt Count 310 MPV 10.8 Immature Gran % (Auto) 0.300 Neut % (Auto) 68.2 Lymph % (Auto) 20.0 Alpine % (Auto) 9.3 Eos % (Auto) 1.5 Baso % (Auto) 0.7 Absolute Neuts (auto) 6.8 Absolute Lymphs (auto) 1.99 Nucleated RBC % 0 Sodium Cancelled 137 Potassium Cancelled 3.5 Chloride Cancelled 102 Carbon Dioxide Cancelled 26.0 Anion Gap Cancelled 9 BUN Cancelled 17 Creatinine Cancelled 0.83 Estim Creat Clear Calc Cancelled 48.24 Est GFR (MDRD) Af Amer Cancelled 86 Est GFR (MDRD) Non-Af Cancelled 71 BUN/Creatinine Ratio Cancelled 20.6 H Glucose Cancelled 227 H Calcium Cancelled 9.0 Total Bilirubin Cancelled 1.10 H AST Cancelled 35 ALT Cancelled 23 Alkaline Phosphatase Cancelled 130 H Troponin I High Sens Cancelled 11 Total Protein Cancelled 7.5 Albumin Cancelled 2.9 L Globulin Cancelled 4.6 H Albumin/Globulin Ratio Cancelled 0.6 L Radiography Diagnostic Testing: Clinical Impression(s) from Imaging Studies Brain CT 02/18/22 08:55 IMPRESSION: 5.7 mm focal bleed in the posterior aspect of the right superior cerebellar peduncle. Stable cerebral atrophy. Electronically Signed: Bridger Angel MD at 9:35 EDT , Chest X-Ray 02/18/22 09:10 IMPRESSION: No acute abnormality. Stable examination. Electronically Signed: Bridger Angel MD at 9:39 EDT , Critical Care Time Critical Care Time: Yes Critical care time (excluding procedures): 30-74 minutes (30), Discussing w/Patient &/or Family/Gold Leaf [employer]inter, Discussing w/Consultants and Arranging Admission or Transfer Discharge Plan Triage Chief Complaint: Numb/Ting ED Provider: Nicolas Curry Dx/Rx/DC Orders Prescriptions: No Action metformin 1,000 MG tablet 1,000 mg PO BID RF: 0 losartan 50 mg Tablet 50 mg PO DAILY RF: 0 pentoxifylline 400 mg Tablet Extended Release 400 mg PO DAILY RF: 0 umxhvdddywxd-vtgarzoz-uoysvr Tablet 1 tab PO DAILY RF: 0 cholecalciferol (vitamin D3) [Vitamin D3] 25 mcg (1,000 unit) Capsule 25 mcg PO DAILY RF: 0 aspirin 325 mg tablet 325 mg PO DAILY Qty: 30 RF: 0 ondansetron 4 mg tablet,disintegrating 4 mg PO Q8H PRN (Reason: nausea and vomiting) Qty: 10 RF: 0 amlodipine 5 mg tablet 5 mg PO DAILY RF: 0 Primary Care Provider: Janice Azevedo
[2022-02-18 09:05] LABS: Absolute Lymphocyte Count 1.99 X10^3/uL (0.83-4.51); Absolute Neutrophil Count 6.8 X10^3/uL (2.0-7.7); Basophil# 0.07 X10^3/uL; Basophil% 0.7 % (0-1); Eosinophil# 0.15 X10^3/uL; Eosinophils% 1.5 % (0-5); Hematocrit 38.5 % (37-47); Hemoglobin 12.8 g/dL (12.0-15.0); Lymphocyte # 1.99 X10^3/ul (0.83-4.51); Mean Corp Hgb Conc 33.2 g/dL (32-36); Mean Corpuscular Hgb 31.2 pg (27.0-32.0); Mean Corpuscular Volume 93.9 fL (81-99); Mean Platelet Vol. 10.8 fl (6.2-12.0); Monocyte# 0.92 X10^3/uL; Monocyte% 9.3 % (0-10); NRBC Flagged by Analyzer 0 % (0-5); Neutrophil # 6.78 X10^3/uL (2.7-7.7); Neutrophil % 68.2 % (47-70); Platelet Count 310 K/mm3 (150-450); RBC Distribution Width CV 14.3 % (11.6-14.6); RBC Distribution Width SD 49.4 fl (35.1-43.9); White Blood Count 9.9 K/mm3 (4.4-11.0)
--- NOTE | 2022-02-18 09:10 | RAD_ITS ---
STUDY: X-RAY CHEST REASON FOR EXAM: Female, 76 years old. ti TECHNIQUE: Single AP portable view of the chest. COMPARISON: Comparison is made with prior study dated 10/26/2021. FINDINGS: EKG electrodes are seen. The lungs are clear and expanded. There is no demonstrated pleural abnormality. Normal size heart. Normal mediastinum and zachary. Normal visualized pulmonary arteries. There is atherosclerotic tortuosity of the aortic arch and descending thoracic aorta. There are degenerative changes of the visualized thoracic spine. Normal visualized ribs, clavicles, and shoulders. There is no demonstrated abnormality of the visualized soft tissue structures of the upper abdomen. RAD/Chest 1 View (Portable) IMPRESSION: No acute abnormality. Stable examination. Electronically Signed: Bridger Angel MD at 9:39 EDT ,
--- NOTE | 2022-02-18 09:20 | ED.RN ---
per dr colunga no need to continue with [facility] at this time.
[2022-02-18 09:56] LABS: ALB/GLOB Ratio 0.6 RATIO (0.9-2.4); AST(SGOT) 35 U/L (15-37); Alanine Aminotransfer ALT/SGPT 23 U/L (13-56); Albumin, Serum 2.9 g/dL (3.2-5.0); Alkaline Phosphatase 130 U/L (45-117); Anion Gap 9 (5-15); BUN 17 mg/dL (7-18); BUN/Creat Ratio 20.6 RATIO (10-20); Chloride 102 mmol/L (98-107); Creatinine, Serum 0.83 mg/dL (0.55-1.02); EST Glomerular Filtration Rate 71 mL/min (>60); Est Glom Filt Rate - Afr Amer 86 mL/min (>60); Estimated Creatinine Clearance 48.24 ml/min; Globulin 4.6 g/dL (2.2-4.2); Glucose 227 mg/dL (74-106); Potassium 3.5 mmol/L (3.5-5.1); Protein, Total 7.5 g/dL (6.4-8.2); Sodium Level 137 mmol/L (136-145); Troponin-I HS 11 pg/mL (3.0-54.0)
[2022-02-18 11:12] VITALS: BP 163/77; PULSE 76; RESP 13; O2SAT 97
[2022-02-18] MEDS: Labetalol (Prefilled) 20 MG/4 ML 10 MG IV (11:18)
[2022-02-18 11:20] VITALS: BP 160/75; PULSE 76; RESP 14; O2SAT 99
[2022-02-18 13:55] LABS: Bedside Glucose 228 mg/dL (74-106)
== END 2022-02-18 11:22 | disposition short-term general hospital (02) ==
LOC: ED 10:44
PROVIDERS: Emergency Provider Student in an Organized Health Care Education/Training Program; PCP Internal Medicine; Visit Provider Student in an Organized Health Care Education/Training Program
DX: I62.9 Nontraumatic intracranial hemorrhage, unspecified (principal); E11.9 Type 2 diabetes mellitus without complications; Z86.73 Personal history of transient ischemic attack (TIA), and cerebral infarction without residual deficits; I10 Essential (primary) hypertension; R20.2 Paresthesia of skin
CPT/HCPCS: 70450; 71045; 80053; 82962; 84484; 85025; 93005; 99285; A4216

== ENCOUNTER → 2022-03-05 | Outpatient (CLI) | payer MEDICARE, OTHER, SELFPAY ==
[2022-03-05 17:50] LABS: Absolute Lymphocyte Count 1.46 X10^3/uL (0.83-4.51); Absolute Neutrophil Count 4.7 X10^3/uL (2.0-7.7); Basophil# 0.04 X10^3/uL; Basophil% 0.6 % (0-1); Eosinophil# 0.08 X10^3/uL; Eosinophils% 1.2 % (0-5); Hematocrit 34.7 % (37-47); Hemoglobin 11.2 g/dL (12.0-15.0); Lymphocyte # 1.46 X10^3/ul (0.83-4.51); Lymphocyte % 21.4 % (19-41); Mean Corp Hgb Conc 32.3 g/dL (32-36); Mean Corpuscular Hgb 30.9 pg (27.0-32.0); Mean Corpuscular Volume 95.6 fL (81-99); Monocyte# 0.47 X10^3/uL; Monocyte% 6.9 % (0-10); NRBC Flagged by Analyzer 0 % (0-5); Neutrophil # 4.74 X10^3/uL (2.7-7.7); Neutrophil % 69.3 % (47-70); Platelet Count 292 K/mm3 (150-450); RBC Distribution Width SD 49.5 fl (35.1-43.9); Red Blood Count 3.63 M/mm3 (4.2-5.4); White Blood Count 6.8 K/mm3 (4.4-11.0)
[2022-03-05 18:09] LABS: ALB/GLOB Ratio 0.7 RATIO (0.9-2.4); AST(SGOT) 25 U/L (15-37); Alanine Aminotransfer ALT/SGPT 24 U/L (13-56); Alkaline Phosphatase 101 U/L (45-117); Anion Gap 8 (5-15); BUN 17 mg/dL (7-18); BUN/Creat Ratio 19.6 RATIO (10-20); Calcium,Total 9.4 mg/dL (8.5-10.1); Chloride 103 mmol/L (98-107); Creatinine, Serum 0.87 mg/dL (0.55-1.02); EST Glomerular Filtration Rate 67 mL/min (>60); Est Glom Filt Rate - Afr Amer 81 mL/min (>60); Globulin 4.4 g/dL (2.2-4.2); Glucose 232 mg/dL (74-106); Potassium 3.7 mmol/L (3.5-5.1); Protein, Total 7.4 g/dL (6.4-8.2); Sodium Level 138 mmol/L (136-145); Thyroid Stim Hormone (TSH) 2.32 uIU/mL (0.358-3.74)
[2022-03-06 09:57] LABS: Hepatitis C Antibody Non-Reactive (Nonreactive); Vitamin D,25 Hydroxy 77.7 ng/mL
== END | disposition home or self-care (01) ==
PROVIDERS: PCP Family Medicine Geriatric Medicine; Visit Provider Family Medicine Geriatric Medicine
DX: E11.9 Type 2 diabetes mellitus without complications (principal); E55.9 Vitamin D deficiency, unspecified; R53.83 Other fatigue; Z13.89 Encounter for screening for other disorder
CPT/HCPCS: 36415; 80053; 82306; 84443; 85025; 86803; 97110; 97161

== ENCOUNTER 2022-04-22 11:30 | Outpatient (RCR) | payer MEDICARE, OTHER, SELFPAY ==
--- NOTE | 2022-03-05 11:47 | HP.SP.EVAL ---
History - History Date of Eval: 03/05/22 Medical Diagnosis (from RX): CVA (I63.9) Date of Onset of Diagnosis: October 2021 and February 2022 Previous speech therapy: Yes Results: Evaluation for dysphagia in the hospital during first admission in October 2021. Deemed not appropriate for services at that time. Other Relevant Medical History/Diagnoses/Surgery: KELLY MICHAEL is a 76-year-old female who presents to [facility] on 03/05/2022 s/p CVA. Pt originally presented to [facility] on 02/18/[address] revealed a ?5.7 mm focal bleed in the posterior aspect of the right superior cerebellar peduncle with stable cerebral atrophy.? Upon consultation with Dr. Rodrigez at [facility], Pt life flighted to [place] for further stroke work-up. Pt with a hx of recent CVA in October 2021 with brain MRI revealing a ?1 cm subacute infarct of the right thalamus.? Pt was seen by speech therapy during this admission for dysphagia BSE with no reported needs for speech therapy at that time. Pt presents to OP speech therapy this date as a blanket order for all therapies for additional CVA work up. Pt with PT eval later this afternoon and OT next week. Pt lives with her daughter (for the last year or so). Pt is currently driving. Pt is completing finances independently. Pt's daughter helps manage her medications with use of a pill box - Pt reporting daughter setting up a reminder on Pt's phone to take medicine. Pt denies difficulties with consuming medications or food/drink consistencies. Medications related to this diagnosis: metformin 1,000 mg PO BID 03/11/15; cholecalciferol (vitamin D3) 25 mcg PO DAILY 10/26/21; losartan 50 mg PO DAILY 10/26/21;. camyrklvnpou-ilqzdrbf-jxdcam 1 tab PO DAILY 10/26/21; pentoxifylline 400 mg PO DAILY 10/26/21; aspirin 325 mg PO DAILY #30 tab 10/27/21; ondansetron 4 mg PO Q8H PRN #10 tab 11/30/21; amlodipine 5 mg PO DAILY 02/18/22 Smoking Status: Never smoker Hx Smoking: No Hx Tobacco Use: No - Pain Is pain an issue with your current prescribed condition?: No Patient Allergies - Allergies Allergies No Known Allergies Allergy (Verified 02/18/22 08:48) CLQT - CLQT CLQT Administered: Yes CLQT: Cognitive Linguistic Quick Test (CLQT) is a criterion - referenced assessment designed for adults between the ages of 18 and 89 with known or suspected neurological dysfuntions. The CLQT is to assess strength and weaknesses in five cognitive domains. Severity ratings are within normal limits, mild, moderate, severe deficits. The subtests are as follows: Date: 03/05/22 - Attention Attention: WNL - Memory Memory: WNL - Executive Functions Executive Functions: WNL - Language Language: WNL - Visuospatial Skills Visuospatial Skills: WNL - Composite Severity Rating Composite Severity Rating: WNL - Clock Drawing Severity Rating Clock Drawing Severity Rating: WNL - CLQT Comments Qualitative Observations Throughout the subtests Pt with intermittent self correction with no cues from clinician. Provided education at the end of session for Pt to double check her baking, cooking, and finance management as Pt demonstrates functional awareness of errors. N-MARGARITA - [place] Dysarthria Assessment Tool Intelligibility:: Intelligible - Phonation: Phonation: Adequate Pitch: Adequate Quality: Adequate Sustained Volume: Able - Resonance: Resonance: Nasality: Adequate - Prosody: Prosody: Ability to vary: Yes - Articulation: Rate of speech: Adequate Phrase length: Adequate - Additional Information: Comment: Pt observed during conversation while collecting case history with no overt s/sx of dysarthric speech despite location of second CVA. NQOL - In past 7 days I had to read something several times to understand it: Rarely (once) My thinking was slow: Rarely (once) I had to work really hard to pay attention or i would make a mistake: Never I had trouble concentrating: Never - How much DIFFICULTY do you currently reading & following complex instructions (e.g. directions for new medication: None planning for & keeping appts that are not part of weekly routine: None managing your time to do most of your daily activities: None learning new tasks or instructions: None - Neuro-QOL Score Raw Score: 38 T - Score: 56.3 Plan - Plan Plan: Will not recommend Pt for therapy at this time as Pt scoring WNL for all cognitive-linguistic areas including executive functioning, memory, attention, language, and visuospatial awareness. Should Pt begin to notice changes in her day-to-day life, med/finance management, cooking/cleaning, etc., please return for re-evaluation to determine plan of care and keep Pt independent with living at home and ensure safety with ADLs and iADLs. - Recommendations Treatment Warranted: No Education - Patient has Indicated that the Following Identified Educational Needs: None The Patient has indicated that they have no educational or learning abilities that may effect their care.: Yes - Patient Instruction Patient Education: Diagnosis, Treatment Plan, Home Exercise Program Person Taught: Patient Teaching Method: Discussion, Demonstration Response to teaching: Return demonstration, Verbalize understanding
--- NOTE | 2022-03-06 13:13 | HP.PTEVAL ---
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 Date of Evaluation: 03/05/22 Physical Therapist: Manjit Rushing DPT - Visit Plan Frequency: 1x/Week Duration: 4 Weeks Plan: Start with static and dynamic balance activities. Progress with gait mechanics and safety. - Subjective Pt. 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 ON 02/18/22 she presented with a focal R sided bleed. She was flighted to [facility] at that point in time. Pt. is sleeping well, no changes in vision, no headaches. She is still driving. She reports no issues at home. She reports no major issues. She has some LLE tingling, but not too bad. She reports no falls. She is driving without issues. She did say that has not been going out at much due to fear of her imbalance. Pt. has not been doing any exercises, but has been trying to do more of her ADLs as the days go by. Her daughter does live her who does help out, but she does all of her ADLs current. Sh reports having some fear with her balance and would like to be more tere allowing for greater independence. - Objective POSTURE: Pt. has decent posture in stance, slight forward head and rounded shoulders. Normal CHRISTY in stance, normal wt. shifting noted. PALPATION: Pt. has no issues with palpation of BLEs. No pain noted. NEURO: Pt. has normal DTR of Achilles and Patellar reflexes bilaterally. ROM: Pt. has good ROM of B knees, ankle and hips. Pt. has mild tightness in B HS. GAIT: Pt. ambulates without AD, but has slightly reduced step length bilaterally. She has reduced B arm swing and slight lateral sway. She also has overall decrease tempo. STAIRS: Pt. was able to complete with 2 HR with reciprocal pattern. - Balance/Special Test Scores Functional Gait Assessment Score: 19 % Disability: 36.6700 Lower Extremity Functional Score: 39 TUG Test Time Seconds: 13.9 30 Second Chair Rise Test Seconds: 9 - Goals Goal 1:: LTG: Pt. to be I with HEP for balance. Goal Time Frame: 2-4 Weeks Goal 2:: LTG: Pt. to complete TUG in less then 8 seconds indicating increased stability with functional mobility. Goal Time Frame: 4-6 Weeks Goal 3:: LTG: Pt. to have increased FGA to greater than 21/30 indicating increased overall balance. Goal Time Frame: 4-6 Weeks Goal 4:: LTG: Pt to ambulate unlimited distances without issues and normal gait pattern allowing for increased independence in community. Goal Time Frame: 4-6 Weeks - Rehabilitation Potential Physical Therapy Diagnosis: Pt. 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 She has subsequent difficulty with walking, slight imbalance and would benefit from PT to address the above limitation progressing back to all previous levels of activities. Rehabilitation Potential: Excellent - Anticipated Interventions Patient/Client Instruction: Educate patient on: Condition, Plan of Care, Risk Factors, Benefits of Fitness Program For the Purpose of:: To improve decision making, To facilitate caregiver knowledge, To improve self management, To prevent re-injury, To improve ability to perform tasks related to life management, To improve tolerance to ADL's Therapeutic Exercise to Include: Strength training, Power training, Balance training, Coordination, Gait and locomotor training For the Purpose of:: To improve muscle performance and motor function, To improve ability to perform ADL's, To increase tolerance to activity/condition/position, To improve gait and locomotor functions, To improve health of tissue, To increase flexibility/ROM, To improve balance Thank you for the opportunity to evaluate your patient. For Medicare and Medicare HMO plans, please review the plan of care and approve it. It will need to be FAXED BACK to us at [phone] for Medicare purposes. For Medicare only, by signing this I certify the plan of care. Please let me know if there are questions or concerns regarding this plan of care. Physician Signature: Date:
--- NOTE | 2022-03-12 07:22 | HP.OTEVAL_ITS ---
Patient's Visit Information KELLY MICHAEL is a 76 year old F, referred to Occupational Therapy by RENAE BETANCOURT, with a diagnosis of R sided non traumatic hemorrhage of cerebellum, CVA. Date of Evaluation: 03/11/22 Occupational Therapist: Gayle Morrison, OTR/L, CHT - Subjective Pt. was referred for OT services for R sided non traumatic hemorrhage of cerebellum, CVA by Froilan Betancourt MERRY GO ROUND ATTENDANT-LEGAL ASSISTANT. Pt. reported her biggest concern is her L hand has pins and needle sensation from stroke in the month of February. Pt. went to ER, did not require a stay for rehab services after being diagnosed with stroke. Had home therapy and was discharged. Pt. was unable to recall dates of stroke or dc from therapy services. Pt. would like to regain L hand function. - ADLs Kitchen: Chop with knife, Peel fruits & vegetables, Open jars, Lift gallon of milk Comments: R hand dominant. Daughter lives with pt. Shower chair. Pt. drives. Has PT also. No ST. - ROM Shoulder: B WFL Elbow: B WFL Forearm: B WFL Wrist: B WFL ROM Comments: Kapandji scale for B hands 10 - Strength Shoulder: L 10.4, R 9.9 Elbow: L 10.3 R 10.5 Teacher Vocational Training: L 25# R 35# Lateral Pinch: L 8# R 4# Tripod Pinch: L 8#R 10# Tip-to-Tip Pinch: L 6# R8# - Sensation Thumb: R 3.84 L 4.17 Index: R 3.61 L 4.17 Middle: R 3.61 L 3.84 Ring: R 3.61 L4.17 Little: R 3.61 L 4.17 Sensation Comments: pt. reports she has had numbness and tingling from L elbow down through hand. Educated pt. on using visual compensation with sharp tools and being more aware of L hand - Cognitive Skills Follows Directions: Yes Cognitive Comments: Per ST gonsalez report of CLQT on 03-05-22: Attention: WNL, Memory: WNL, Executive Functions: WNL, Language: WNL, Visuospatial Skills: WNL, Composite Severity Rating: WNL, Clock Drawing Severity Rating: WNL, CLQT Comments: Qualitative Observations: Throughout the subtests Pt with intermittent self correction with no cues from clinician. Provided education at the end of session for Pt to double check her baking, cooking, and finance management as Pt demonstrates functional awareness of errors. 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 Goal:: Pt. to improve L hand FM dexterity on 9-hole peg test (from 27.64 to 23 seconds) for independence with leisure tasks. Goal:: Pt. to report decreased pins & needles in L forearm during ADL/IADL tasks by dc - Rehabilitation General Assessment: Pt. was referred for OT services for R sided non traumatic hemorrhage of cerebellum, CVA by Froilan Betancourt APRN-LEGAL ASSISTANT. Pt. had stroke in February. Educated pt. on what to expect with out-pt. OT services and to visually attend to tasks that involve her L hand and she has decreased sensation. She has decreased sensation in left hand minimal LUE weakness and would benefit from skilled OT services 2x a week for 6 weeks to improve IADL tasks. Pt. demo'd understanding & agreeable to POC. Therapy session was directly supervised and doc. reviewed and approved by Gayle Morrison OTR/Vinay,CHT. Rehabilitation Potential: Good - Anticipated Interventions A/AAROM/PROM, Strengthening, Desensitization, Ergonomic Education, Fine Motor Coord/Alok, ADL Training, Education re Diagnosis, Home Program Other Interventions: cognition assessment during functional IADL activities. - Visit Plan Frequency: 2x /Week Duration: 6 Weeks TEXT: Thank you for the opportunity to evaluate your patient. For Medicare and Medicare HMO plans, please review the plan of care and approve it. It will need to be FAXED BACK to us at [phone] for Medicare purposes. Please let me know if there are questions or concerns regarding this plan of care. Physician Signature: Date:
--- NOTE | 2022-05-13 16:06 | HP.PT.NRP ---
KELLY MICHAEL was seen in my office for initial evaluation on 03/05/22. The following Plan of Care was established for this patient: Initial Frequency: 1x/Week Initial Duration: 4 Weeks Patient/Client Instruction: Educate patient on: Condition, Plan of Care, Risk Factors, Benefits of Fitness Program For the Purpose of:: To improve decision making, To facilitate caregiver knowledge, To improve self management, To prevent re-injury, To improve ability to perform tasks related to life management, To improve tolerance to ADL's Therapeutic Exercise to Include: Strength training, Power training, Balance training, Coordination, Gait and locomotor training For the Purpose of:: To improve muscle performance and motor function, To improve ability to perform ADL's, To increase tolerance to activity/condition/position, To improve gait and locomotor functions, To improve health of tissue, To increase flexibility/ROM, To improve balance This patient was last seen in our office 03/20/22. Pertinent comments regarding their Physical therapy will appear below: I talk to Kelly today and she reports she is doing well. She does not PT at this point in time. She will be DC from PT at this point in time. She has started to stretching class as well. At this point I will be discontinuing this patient from physical therapy. I would be happy to see this patient again in the future if found appropriate by the physician. Thank you! Manjit Rushing DPT Balance/Gait/Functional tests - Balance/Special Test Scores Functional Gait Assessment Score: 19 % Disability: 36.6700 Lower Extremity Functional Score: 67 TUG Test Time Seconds: 13.9 Tug Test: <20 sec.=mostly independent 30 Second Chair Rise Test Seconds: 9
== END 2022-04-22 19:00 | disposition home or self-care (01) ==
LOC: OT 11:30
PROVIDERS: PCP Internal Medicine
DX: Z86.73 Personal history of transient ischemic attack (TIA), and cerebral infarction without residual deficits (principal)
CPT/HCPCS: 97110; 97112; 97161; 97166; 97530

== ENCOUNTER 2022-05-22 16:32 | Emergency (ER) | payer MEDICARE, OTHER, SELFPAY ==
[2022-05-22 16:33] VITALS: BP 156/80; PULSE 95; RESP 16; TEMP 36.4; O2SAT 97; BMI 24.0
--- NOTE | 2022-05-22 17:37 | RAD_ITS ---
STUDY: XR Knee Complete 4 Views or More 05/22/2022 7:16 PM REASON FOR EXAM: Female, 77 years old. injury Technologist Notes FELL FACE FIRST ONTO CEMENT. SWELLING AND BRUISING TO RIGHT EYE AND FOREHEAD. CHEST MUSCLES SORE, ABRASIONS TO RIGHT KNEE. DENIES LOC TECHNIQUE: XR Knee Complete 4 Views or More RIGHT COMPARISON: None FINDINGS: Normal visualized distal femur. Normal visualized proximal tibia and fibula. Normal proximal tibiofibular articulation. There is calcification in the joint space which may signify calcium pyrophosphate deposition disease. Normal medial femorotibial compartment. Normal lateral femorotibial compartment. Normal patellofemoral articulation. The soft tissue structures are unremarkable. RAD/Knee 4 or More Views IMPRESSION: There are no acute findings. Electronically Signed: Gary Short MD at 19:17 EDT ,
--- NOTE | 2022-05-22 17:38 | EDS_ITS ---
HPI HPI - Fall History of Present Illness Chief Complaint: Fall Informant: patient Occured/Mechanism Occurred: Today Mechanism/Context: Yes same level fall Narrative: Fell forward while holding onto the leash of her dog who started running after another animal Usually ambulates: Without assistance Pain/Injury Pain Location: face, chest and lower extremity (Right knee) Quality of Pain: Aching Current Severity: Mild Maximum Severity: Moderate Worsened by: Palpation, movement Relieved by: Remaining still & resting Associated Symptoms Associated Symptoms: Negative for Parasthesias, Weakness, Loss of function, Inability to ambulate, Loss of consciousness or Amnesia Narrative Narrative: Has been ambulatory since this injury where she fell forward to the pavement. No loss of consciousness. No headache or nausea/vomiting. Cannot see out of her right eye because of the swelling, she had on her forehead just above this. She is on baby aspirin daily, no other antiplatelets or anticoagulants. She also injured her right knee but she has been able to walk okay. Chest is hurting, she hit that against the pavement but no dyspnea. [facility] Medical History Acute CVA (cerebrovascular accident) Diabetes Hypertension Home Medications metformin 1,000 mg tablet 1,000 mg PO BID 03/11/15 [History Last Taken Unknown] cholecalciferol (vitamin D3) 25 mcg (1,000 unit) capsule (Vitamin D3) 25 mcg PO DAILY 10/26/21 [History Last Taken Unknown] losartan 50 mg tablet 50 mg PO DAILY 10/26/21 [History Last Taken Unknown] jqlwxaanvesj-krriprxc-qylrcu tablet 1 tab PO DAILY 10/26/21 [History Last Taken Unknown] pentoxifylline 400 mg tablet,extended release 400 mg PO DAILY 10/26/21 [History Last Taken Unknown] aspirin 325 mg tablet 325 mg PO DAILY #30 tabs 10/27/21 [Rx Last Taken Unknown] ondansetron 4 mg disintegrating tablet 4 mg PO Q8H PRN nausea and vomiting #10 tabs 11/30/21 [Rx Last Taken Unknown] amlodipine 5 mg tablet 5 mg PO DAILY 02/18/22 [History Last Taken Unknown] Allergy/AdvReac Type Severity Reaction Status Date / Time No Known Allergies Allergy Verified 05/22/22 16:35 Family History Father Myocardial infarction Brother CAD (coronary artery disease) Mother Cancer Social History household members: family housing: house Smoking Status: Never smoker substance use type: does not use what type of physical activity do you participate in: walking ROS ROS ED Constitutional Constitutional ED: Denies chills or fever(s) Eyes Eyes: Denies change in vision or diplopia ENT ENT ED: Reports facial pain; Denies ear pain, epistaxis or rhinorrhea Cardiovascular Cardiovascular: Denies chest pain or palpitations Respiratory/Chest Respiratory/Chest: Denies cough or dyspnea Gastrointestinal Gastrointestinal: Denies abdominal pain, diarrhea, melena, nausea or vomiting Genitourinary Genitourinary ED: Denies dysuria or hematuria Musculoskeletal Musculoskeletal: Reports extremity pain; Denies back pain or neck pain Integumentary Reports Abrasions; Denies abscess, laceration or rash Neurologic Neurologic: Denies confusion, headache(s), paresthesias or weakness EXAM Physical Exam Const Vital Signs: 05/22/22 16:33 05/22/22 17:26 Temperature 97.5 F L Temperature Source Temporal Pulse Rate 95 Respiratory Rate 16 Respiratory Effort Normal Non-Labored Respiratory Depth Normal Respiratory Pattern Normal Blood Pressure 156/80 H Blood Pressure Mean 105 Pulse Ox 97 Oxygen Delivery Method Room Air Room Air Positive well nourished and well developed General Appearance ED: well developed and NAD HEENT Reports TM's clear and nasal mucous membranes and turbinates normal HEENT Narrative: Large hematoma right forehead with ecchymotic right periorbital area, the eyelid is swollen to the point where she cannot see out of it. After applying the eyelid open some, I am able to see her globe which appears atraumatic with good extraocular movements. No subconjunctival hemorrhage. Face and Sinus: facial tenderness Tympanic Membrane ED: Yes TM's clear Eyes PERRL and EOMs intact bilaterally Visual Acuity: other Other Details: no entrapment or pain with extraocular movements Neck full ROM and supple General: Negative for tenderness Chest Wall inspection of chest normal Chest Narrative: Mild tenderness in sternum and left anterior chest no crepitance, no step-off, no evidence of trauma, no clavicle tenderness, equal breath sounds bilaterally,no subcutaneous emphysema. Chest: symmetrical chest wall rise and tenderness; Negative for crepitus Resp normal respiratory effort and clear to auscultation bilaterally Percussion: other equal BS bilat Cardio no murmurs Rate: regular rate Rhythm: regular rhythm GI normal to inspection, nondistended, normoactive bowel sounds, soft to palpation and non-tender Back/Spine normal ROM Cervical Spine: Negative for cervical spine tenderness Thoracic Spine / Upper Back: Negative for thoracic spinal tenderness Lumbar Spine / Lower Back: Negative for lumbar spinal tenderness Extremity normal to inspection and full ROM Extremity Narrative: Swollen anterior right knee, tender at the patella, extensor mechanism intact, all ligaments stable with short endpoints on stressing, only limited at extreme of flexion due to swelling and pain. Minor abrasion anteriorly no lacerations. General Extremety ED: Yes tenderness Neuro oriented x3, CN's II-XII intact bilaterally, moves all extremities, no focal motor deficits and no sensory deficits noted Samira Coma Scale: document GCS findings Spontaneous Obeys Commands Oriented 15 Sensorium / Orientation: awake and alert Psych mental status grossly normal and thought process normal Skin no wounds Lesions: no lesions Rashes: no rashes MDM MDM MDM Narrative Medical decision making narrative: CT head was obtained and it is negative for any acute, I did include the right orbit and the nasal bridge. There is bruising around the nasal bridge but no tenderness, I see no fractures on the CT and radiology is in agreement. 2 view chest x-ray my interpretation negative for than acute, and 4 view right knee x- ray negative for any acute, radiology in agreement reassured the patient, she was given Tylenol for the pain advised to continue that for least the first 2 or 3 days before taking NSAIDs, continuing to ice the area. She is comfortable with that plan. Radiography Diagnostic Testing: Clinical Impression(s) from Imaging Studies Knee X-Ray 05/22/22 17:37 IMPRESSION: There are no acute findings. Electronically Signed: Gary Short MD at 19:17 EDT , Brain CT 05/22/22 18:35 IMPRESSION: 1. Diffuse involutional change, extensive chronic deep white matter disease and areas of remote lacunar infarct. 2. No intracranial evidence of acute traumatic injury. 3. No intracranial mass, hemorrhage or acute territorial infarct. 4. Extensive RIGHT frontal scalp hematoma, soft tissue swelling ecchymosis and bruising in the preseptal soft tissue planes of the RIGHT orbit. 5. No orbital fractures, soft tissues of the orbits including the globes and retrobulbar soft tissue planes have normal appearance. 6. No cranial facial fracture, no fluid or blood in the paranasal sinuses middle ear cavities or mastoid air cells. Electronically Signed: Selvin Villalta MD at 19:09 EDT , Chest X-Ray 05/22/22 18:45 IMPRESSION: There are no acute findings. Electronically Signed: Gary Short MD at 19:16 EDT , Discharge Plan Triage Chief Complaint: Fall ED Provider: Portillo Soliz Dx/Rx/DC Orders Clinical Impression: Closed head injury without loss of consciousness, Contusion of chest, Contusion of knee, right, Fall from slip, trip, or stumble, Traumatic hematoma of face Instructions: ED Head Injury (Adult), ED Hematoma Prescriptions: No Action metformin 1,000 MG tablet 1,000 mg PO BID losartan 50 mg Tablet 50 mg PO DAILY pentoxifylline 400 mg Tablet Extended Release 400 mg PO DAILY ruldvbcvxifq-ogbmsouu-vhndhw Tablet 1 tab PO DAILY cholecalciferol (vitamin D3) [Vitamin D3] 25 mcg (1,000 unit) Capsule 25 mcg PO DAILY aspirin 325 mg tablet 325 mg PO DAILY Qty: 30 0RF ondansetron 4 mg tablet,disintegrating 4 mg PO Q8H PRN (Reason: nausea and vomiting) Qty: 10 0RF amlodipine 5 mg tablet 5 mg PO DAILY Label Comments: TAKE 1 TABLET BY MOUTH EVERY MORNING Primary Care Provider: Trevor Roth Chi Referrals: Trevor Roth Chi, MD [Primary Care Provider] - As Needed Disposition Disposition: Home, Self Care
[2022-05-22] MEDS: Acetaminophen 325 MG Tablet 650 MG PO (18:31)
--- NOTE | 2022-05-22 18:35 | CT_ITS ---
INDICATION: trauma/fall EXAMINATION: CT BRAIN - CT Head or Brain W/O Contrast Injection TECHNIQUE: Multiple axial images were obtained of the head without intravenous contrast. A radiation dose optimization technique was used for this scan. IV Contrast dosage and agent: None. RADIATION DOSAGE (If Supplied By Facility): CTDIvol = ( 44.99 ) mGy, DLP = ( 846.73 ) mGycm COMPARISON: MRI examination of 10/27/2021, CTA examination of 10/26/2021. FINDINGS: HEMISPHERES: 1. The cerebral parenchyma, ventricular system, subarachnoid spaces have normal configuration and density. There is a normal gyral pattern. There is normal russ/white differentiation. No midline shift.. 2. Diffuse chronic microvascular deep white matter disease, area of remote infarct in the RIGHT merritt radiata, and RIGHT thalamus. 3. Additional area of hypodensity along the medial aspect of the LEFT occipital lobe appears to represent trapped fluid within the parieto-occipital sulcus. Findings are stable. 4. No intraparenchymal mass, hemorrhage, or acute territorial infarct. CEREBELLUM - BRAINSTEM: The cerebellum, brainstem, basilar and suprasellar cisterns have normal appearance. No Chiari malformation. PITUITARY: Infundibulum and pituitary have normal configuration. Midline structures appear normal. CSF SPACES: Appropriate for age. No hydrocephalus. Basal cisterns are patent. VESSELS: 1. Moderate vascular calcifications in the cavernous carotid vessels. 2. No hyperdense vascular signs noted.. ORBITS AND PARANASAL SINUSES: 1. Significant periorbital preseptal soft tissue swelling/bruising extending into the RIGHT frontal scalp where there is a subcutaneous scalp hematoma. Orbital ng are intact. Post septal soft tissue planes including the globes, ocular lenses and retrobulbar soft tissues have normal appearance.. 2. Paranasal sinuses are clear. BONY ELEMENTS: Bony elements of the cranial vault, facial skeleton and skull base have normal appearance. SCALP AND SOFT TISSUES: RIGHT frontal scalp hematoma and ecchymosis. OTHER: None ASPECTS Score for Acute Strokes: 10 CT/Brain/Head without Contrast IMPRESSION: 1. Diffuse involutional change, extensive chronic deep white matter disease and areas of remote lacunar infarct. 2. No intracranial evidence of acute traumatic injury. 3. No intracranial mass, hemorrhage or acute territorial infarct. 4. Extensive RIGHT frontal scalp hematoma, soft tissue swelling ecchymosis and bruising in the preseptal soft tissue planes of the RIGHT orbit. 5. No orbital fractures, soft tissues of the orbits including the globes and retrobulbar soft tissue planes have normal appearance. 6. No cranial facial fracture, no fluid or blood in the paranasal sinuses middle ear cavities or mastoid air cells. Electronically Signed: Selvin Villalta MD at 19:09 EDT ,
--- NOTE | 2022-05-22 18:45 | RAD_ITS ---
STUDY: XR Chest 2 Views 05/22/2022 6:45 PM REASON FOR EXAM: Female, 77 years old. CHEST PAIN anterior chest pain, fall/injury COMPARISON: 10/26/2021 TECHNIQUE: XR Chest 2 Views FINDINGS: There is no demonstrated pleural abnormality. Normal heart size. Normal mediastinum. Normal zachary. Prominent appearing increased interstitial lung markings. Normal visualized pulmonary arteries. There is atherosclerotic calcification of the aortic arch with tortuosity. There are diffuse degenerative changes of the visualized thoracic spine. There is degenerative osteoarthritis of the bilateral shoulders. There is no demonstrated abnormality of the visualized soft tissue structures of the upper abdomen. RAD/Chest PA and Lateral IMPRESSION: There are no acute findings. Electronically Signed: Gary Short MD at 19:16 EDT ,
[2022-05-22 20:41] VITALS: BP 164/65; RESP 18
== END 2022-05-22 20:42 | disposition home or self-care (01) ==
PROVIDERS: Emergency Provider Emergency Medicine; PCP Family Medicine Geriatric Medicine; Visit Provider Emergency Medicine
DX: S89.91XA Unspecified injury of right lower leg, initial encounter (principal); E11.9 Type 2 diabetes mellitus without complications; S00.33XA Contusion of nose, initial encounter; I10 Essential (primary) hypertension; W01.0XXA Fall on same level from slipping, tripping and stumbling without subsequent striking against object, initial encounter; S09.90XA Unspecified injury of head, initial encounter; Z86.73 Personal history of transient ischemic attack (TIA), and cerebral infarction without residual deficits; Y93.K1 Activity, walking an animal
CPT/HCPCS: 70450; 71046; 73564; 99283

== ENCOUNTER → 2022-06-04 | Outpatient (CLI) | payer MEDICARE, SELFPAY ==
[2022-06-04 12:34] LABS: Absolute Lymphocyte Count 0.98 X10^3/uL (0.83-4.51); Absolute Neutrophil Count 6.6 X10^3/uL (2.0-7.7); Basophil# 0.05 X10^3/uL; Basophil% 0.6 % (0-1); Eosinophil# 0.02 X10^3/uL; Eosinophils% 0.2 % (0-5); Hematocrit 36.8 % (37-47); Hemoglobin 12.2 g/dL (12.0-15.0); Lymphocyte # 0.98 X10^3/ul (0.83-4.51); Lymphocyte % 11.9 % (19-41); Mean Corp Hgb Conc 33.2 g/dL (32-36); Mean Corpuscular Hgb 31.3 pg (27.0-32.0); Mean Corpuscular Volume 94.4 fL (81-99); Mean Platelet Vol. 11.9 fl (6.2-12.0); Monocyte# 0.54 X10^3/uL; Monocyte% 6.6 % (0-10); NRBC Flagged by Analyzer 0 % (0-5); Neutrophil # 6.62 X10^3/uL (2.7-7.7); Neutrophil % 80.3 % (47-70); Platelet Count 264 K/mm3 (150-450); RBC Distribution Width CV 13.7 % (11.6-14.6); RBC Distribution Width SD 47.6 fl (35.1-43.9); White Blood Count 8.2 K/mm3 (4.4-11.0)
[2022-06-04 12:44] LABS: Vitamin D,25 Hydroxy 61.8 ng/mL
[2022-06-04 12:59] LABS: ALB/GLOB Ratio 0.8 RATIO (0.9-2.4); AST(SGOT) 47 U/L (15-37); Alanine Aminotransfer ALT/SGPT 61 U/L (13-56); Albumin, Serum 3.4 g/dL (3.2-5.0); Alkaline Phosphatase 212 U/L (45-117); Anion Gap 8 (5-15); BUN 21 mg/dL (7-18); BUN/Creat Ratio 22.9 RATIO (10-20); Calcium,Total 9.7 mg/dL (8.5-10.1); Chloride 100 mmol/L (98-107); Creatinine, Serum 0.92 mg/dL (0.55-1.02); EST Glomerular Filtration Rate 63 mL/min (>60); Est Glom Filt Rate - Afr Amer 76 mL/min (>60); Globulin 4.5 g/dL (2.2-4.2); Glucose 211 mg/dL (74-106); Potassium 3.8 mmol/L (3.5-5.1); Protein, Total 7.9 g/dL (6.4-8.2); Sodium Level 135 mmol/L (136-145); Thyroid Stim Hormone (TSH) 4.14 uIU/mL (0.358-3.74)
== END | disposition home or self-care (01) ==
PROVIDERS: PCP Family Medicine Geriatric Medicine; Visit Provider Family Medicine Geriatric Medicine
DX: E11.65 Type 2 diabetes mellitus with hyperglycemia (principal); E55.9 Vitamin D deficiency, unspecified; I10 Essential (primary) hypertension
CPT/HCPCS: 36415; 80053; 82306; 84443; 85025

== ENCOUNTER → 2022-06-11 | Outpatient (CLI) | payer MEDICARE, SELFPAY ==
[2022-06-11 16:55] LABS: Basophil# 0.04 X10^3/uL; Basophil% 0.6 % (0-1); Eosinophil# 0.04 X10^3/uL; Eosinophils% 0.6 % (0-5); Hematocrit 34.8 % (37-47); Hemoglobin 11.5 g/dL (12.0-15.0); Lymphocyte % 17.4 % (19-41); Mean Corpuscular Hgb 31.3 pg (27.0-32.0); Mean Corpuscular Volume 94.6 fL (81-99); Mean Platelet Vol. 11.7 fl (6.2-12.0); Monocyte# 0.57 X10^3/uL; Monocyte% 8.3 % (0-10); NRBC Flagged by Analyzer 0 % (0-5); Neutrophil # 5.02 X10^3/uL (2.7-7.7); Neutrophil % 72.8 % (47-70); Platelet Count 214 K/mm3 (150-450); RBC Distribution Width CV 13.5 % (11.6-14.6); RBC Distribution Width SD 47.2 fl (35.1-43.9); Red Blood Count 3.68 M/mm3 (4.2-5.4); White Blood Count 6.9 K/mm3 (4.4-11.0)
[2022-06-11 17:13] LABS: Vitamin D,25 Hydroxy 54.1 ng/mL
[2022-06-11 17:21] LABS: ALB/GLOB Ratio 0.7 RATIO (0.9-2.4); AST(SGOT) 43 U/L (15-37); Alanine Aminotransfer ALT/SGPT 46 U/L (13-56); Albumin, Serum 3.1 g/dL (3.2-5.0); Alkaline Phosphatase 209 U/L (45-117); Anion Gap 8 (5-15); BUN 22 mg/dL (7-18); BUN/Creat Ratio 21.8 RATIO (10-20); Calcium,Total 9.2 mg/dL (8.5-10.1); Chloride 102 mmol/L (98-107); Creatinine, Serum 1.01 mg/dL (0.55-1.02); EST Glomerular Filtration Rate 56 mL/min (>60); Est Glom Filt Rate - Afr Amer 68 mL/min (>60); Globulin 4.2 g/dL (2.2-4.2); Glucose 216 mg/dL (74-106); Protein, Total 7.3 g/dL (6.4-8.2); Sodium Level 137 mmol/L (136-145)
== END | disposition home or self-care (01) ==
LOC: POLAB3 13:37
PROVIDERS: PCP Family Medicine Geriatric Medicine; Visit Provider Family Medicine Geriatric Medicine
DX: E11.65 Type 2 diabetes mellitus with hyperglycemia (principal); I10 Essential (primary) hypertension; E55.9 Vitamin D deficiency, unspecified
CPT/HCPCS: 36415; 80053; 82306; 84443; 85025

== ENCOUNTER → 2022-06-18 | Outpatient (CLI) | payer MEDICARE, SELFPAY ==
--- NOTE | 2022-06-18 09:45 | US_ITS ---
STUDY: ABDOMINAL ULTRASOUND - RIGHT UPPER QUADRANT REASON FOR VISIT: Female, 77 years old . Abnormal liver enzymes. TECHNIQUE: Ultrasound evaluation of the right upper quadrant was performed with real-time and static russ-scale imaging. TECHNICAL QUALITY: Adequate. COMPARISON: None. FINDINGS: Liver: The liver measures 12.9 cm. There is normal echogenicity of the liver. The bile ducts are within normal limits. There is hepatic color flow. The direction of portal flow is hepatopetal. There is no demonstrated mass lesion. Gallbladder: Normal distended gallbladder. The gallbladder wall measures 1.4 mm. There is a negative sonographic Brown''s sign. There is no pericholecystic fluid. There are multiple echogenic structures within the gallbladder, consistent with multiple gallstones. Common Bile Duct (C.B.D.): The common bile duct measures 6.2 mm. Pancreas: Normal size of the head, body and tail of the pancreas. There is normal echogenicity of the pancreas. There is no demonstrated pancreatic mass or cyst. Right Kidney: Normal size of the right kidney. The right kidney measures 10.1 cm x 4.7 cm x 4.6 cm. Normal renal cortex. The right cortex measures 1.1 cm. There is no demonstrated renal mass or cyst. There is no right hydronephrosis. US/Abdomen Limited IMPRESSION: Multiple gallstones. Electronically Signed: Bridger Angel MD at 15:05 EDT ,
== END | disposition home or self-care (01) ==
PROVIDERS: PCP Family Medicine Geriatric Medicine; Referring Provider Family Medicine Geriatric Medicine; Visit Provider Family Medicine Geriatric Medicine
DX: R74.8 Abnormal levels of other serum enzymes (principal)
CPT/HCPCS: 76705

== ENCOUNTER → 2022-06-19 | Outpatient (CLI) | payer MEDICARE, SELFPAY ==
[2022-06-19 13:21] LABS: ALB/GLOB Ratio 0.8 RATIO (0.9-2.4); AST(SGOT) 31 U/L (15-37); Alanine Aminotransfer ALT/SGPT 32 U/L (13-56); Albumin, Serum 3.4 g/dL (3.2-5.0); Alkaline Phosphatase 171 U/L (45-117); Anion Gap 9 (5-15); BUN 20 mg/dL (7-18); BUN/Creat Ratio 21.9 RATIO (10-20); Calcium,Total 9.9 mg/dL (8.5-10.1); Chloride 104 mmol/L (98-107); Creatinine, Serum 0.91 mg/dL (0.55-1.02); EST Glomerular Filtration Rate 63 mL/min (>60); Est Glom Filt Rate - Afr Amer 76 mL/min (>60); Globulin 4.4 g/dL (2.2-4.2); Glucose 143 mg/dL (74-106); Protein, Total 7.8 g/dL (6.4-8.2); Sodium Level 139 mmol/L (136-145)
[2022-06-19 13:29] LABS: Hepatitis B Surface Antibody Reactive
[2022-06-20 06:07] LABS: HEPATITIS B SURFACE AG Negative (Negative); Hep C Antibodies <0.1 s/co ratio (0.0-0.9); Hepatitis A IgM Antibody Negative (Negative); Hepatitis B Core AB IgM Negative (Negative)
[2022-06-20 07:42] LABS: Hepatitis A AB, Total Negative (Negative)
== END | disposition home or self-care (01) ==
LOC: POLAB3 11:56
PROVIDERS: PCP Family Medicine Geriatric Medicine; Visit Provider Family Medicine Geriatric Medicine
DX: R74.8 Abnormal levels of other serum enzymes (principal)
CPT/HCPCS: 36415; 80053; 80074; 86706; 86708; 86803

== ENCOUNTER → 2022-07-09 | Outpatient (CLI) | payer MEDICARE, SELFPAY ==
[2022-07-09 16:01] LABS: ALB/GLOB Ratio 0.8 RATIO (0.9-2.4); AST(SGOT) 40 U/L (15-37); Alanine Aminotransfer ALT/SGPT 41 U/L (13-56); Alkaline Phosphatase 116 U/L (45-117); Anion Gap 8 (5-15); BUN 21 mg/dL (7-18); BUN/Creat Ratio 21.2 RATIO (10-20); Calcium,Total 9.2 mg/dL (8.5-10.1); Chloride 104 mmol/L (98-107); Creatinine, Serum 0.99 mg/dL (0.55-1.02); EST Glomerular Filtration Rate 58 mL/min (>60); Est Glom Filt Rate - Afr Amer 70 mL/min (>60); Globulin 3.9 g/dL (2.2-4.2); Glucose 197 mg/dL (74-106); Potassium 4.3 mmol/L (3.5-5.1); Protein, Total 6.9 g/dL (6.4-8.2); Sodium Level 138 mmol/L (136-145)
== END | disposition home or self-care (01) ==
LOC: POLAB3 14:02
PROVIDERS: PCP Family Medicine Geriatric Medicine; Visit Provider Family Medicine Geriatric Medicine
DX: R74.8 Abnormal levels of other serum enzymes (principal)
CPT/HCPCS: 36415; 80053

== ENCOUNTER → 2022-07-23 | Outpatient (CLI) | payer MEDICARE, SELFPAY ==
[2022-07-23 14:28] LABS: Thyroid Stim Hormone (TSH) 2.65 uIU/mL (0.358-3.74)
== END | disposition home or self-care (01) ==
LOC: POLAB3 13:30
PROVIDERS: PCP Family Medicine Geriatric Medicine; Visit Provider Family Medicine Geriatric Medicine
DX: E03.9 Hypothyroidism, unspecified (principal)
CPT/HCPCS: 36415; 84443

== ENCOUNTER → 2022-08-06 | Outpatient (CLI) | payer MEDICARE, SELFPAY ==
--- NOTE | 2022-08-06 09:16 | NM_ITS ---
CLINICAL: 77-year-old female with history of elevation of the transaminase enzyme levels. RADIONUCLIDE HEPATOBILIARY SCINTIGRAPHY COMPARISON: Abdominal ultrasound report 06/18/2022 FINDINGS: Following the intravenous administration of 5.6 mCi of 99m Tc Mebrofenin, hepatobiliary images reveal: 1. Relatively prompt and homogeneous radiopharmaceutical concentration is noted by a normal sized liver. No parenchymal defects are identified. 2. Gallbladder activity is identified at approximately 30 minutes post radiopharmaceutical administration. 3. Small intestinal tract is observed at 15 minutes following tracer injection. 4. Washout of the radiopharmaceutical by the hepatic parenchyma appears qualitatively normal. Cholecystokinin (0.02 ug/kg) was administered intravenously over a 30-minute period. The post CCK gallbladder ejection fraction calculated at 23 minutes following Cholecystokinin administration was noted to be 75.0 % (normal greater than 35%). During 30 minutes of post CCK imaging, there is no scintigraphic evidence of reflux of the radiotracer into the common hepatic duct or refilling of the gallbladder. There appears to be evidence of post CCK duodenal gastric reflux. FL/Hepatobilliary Img w/Pharm Int IMPRESSION: 1. A gallbladder ejection fraction calculated to be greater than 35% following the administration of Cholecystokinin makes the probability of functional hepatobiliary disease (gallbladder and/or sphincter of Oddi dyskinesia) and/or organic hepatobiliary disease (chronic acalculous cholecystitis and/or cystic duct syndrome) to be low. (Yair Gaona et al, Journal of Nuclear Medicine 32:1695, 1991). 2. 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 Electronically Signed: Selvin Barraza, at 21:20 EDT ,
== END | disposition home or self-care (01) ==
LOC: NM 09:14
PROVIDERS: PCP Family Medicine Geriatric Medicine; Referring Provider Family Medicine Geriatric Medicine; Visit Provider Family Medicine Geriatric Medicine
DX: K80.20 Calculus of gallbladder without cholecystitis without obstruction (principal)
CPT/HCPCS: 78227; A9537; J2805

== ENCOUNTER → 2022-08-13 | Outpatient (CLI) | payer MEDICARE, SELFPAY ==
[2022-08-13 17:16] LABS: Absolute Lymphocyte Count 1.14 X10^3/uL (0.83-4.51); Absolute Neutrophil Count 4.6 X10^3/uL (2.0-7.7); Basophil# 0.06 X10^3/uL; Basophil% 0.9 % (0-1); Eosinophil# 0.12 X10^3/uL; Eosinophils% 1.8 % (0-5); Hematocrit 36.5 % (37-47); Hemoglobin 12.3 g/dL (12.0-15.0); Lymphocyte # 1.14 X10^3/ul (0.83-4.51); Lymphocyte % 17.4 % (19-41); Mean Corp Hgb Conc 33.7 g/dL (32-36); Mean Corpuscular Hgb 32.5 pg (27.0-32.0); Mean Corpuscular Volume 96.3 fL (81-99); Mean Platelet Vol. 11.3 fl (6.2-12.0); Monocyte# 0.58 X10^3/uL; Monocyte% 8.9 % (0-10); NRBC Flagged by Analyzer 0 % (0-5); Neutrophil # 4.63 X10^3/uL (2.7-7.7); Neutrophil % 70.8 % (47-70); Platelet Count 220 K/mm3 (150-450); RBC Distribution Width CV 13.1 % (11.6-14.6); RBC Distribution Width SD 46.4 fl (35.1-43.9); Red Blood Count 3.79 M/mm3 (4.2-5.4); White Blood Count 6.5 K/mm3 (4.4-11.0)
[2022-08-13 18:33] LABS: ALB/GLOB Ratio 0.8 RATIO (0.9-2.4); AST(SGOT) 42 U/L (15-37); Alanine Aminotransfer ALT/SGPT 40 U/L (13-56); Albumin, Serum 3.4 g/dL (3.2-5.0); Alkaline Phosphatase 103 U/L (45-117); Anion Gap 7 (5-15); BUN 23 mg/dL (7-18); BUN/Creat Ratio 23.6 RATIO (10-20); Calcium,Total 9.4 mg/dL (8.5-10.1); Chloride 102 mmol/L (98-107); Creatinine, Serum 0.97 mg/dL (0.55-1.02); EST Glomerular Filtration Rate 59 mL/min (>60); Est Glom Filt Rate - Afr Amer 71 mL/min (>60); Glucose 143 mg/dL (74-106); Potassium 4.1 mmol/L (3.5-5.1); Protein, Total 7.4 g/dL (6.4-8.2); Sodium Level 139 mmol/L (136-145)
== END | disposition home or self-care (01) ==
LOC: POLAB3 15:10
PROVIDERS: PCP Family Medicine Geriatric Medicine; Visit Provider Family Medicine Geriatric Medicine
DX: R74.8 Abnormal levels of other serum enzymes (principal)
CPT/HCPCS: 36415; 80053; 85025

== ENCOUNTER → 2022-09-16 | Outpatient (CLI) | payer MEDICARE, SELFPAY ==
[2022-09-16 17:19] LABS: Absolute Lymphocyte Count 1.48 X10^3/uL (0.83-4.51); Absolute Neutrophil Count 4.3 X10^3/uL (2.0-7.7); Basophil# 0.05 X10^3/uL; Basophil% 0.8 % (0-1); Eosinophil# 0.06 X10^3/uL; Eosinophils% 0.9 % (0-5); Hematocrit 39.6 % (37-47); Hemoglobin 13.3 g/dL (12.0-15.0); Lymphocyte # 1.48 X10^3/ul (0.83-4.51); Lymphocyte % 22.7 % (19-41); Mean Corp Hgb Conc 33.6 g/dL (32-36); Mean Corpuscular Hgb 31.7 pg (27.0-32.0); Mean Corpuscular Volume 94.5 fL (81-99); Mean Platelet Vol. 11.6 fl (6.2-12.0); Monocyte# 0.59 X10^3/uL; NRBC Flagged by Analyzer 0 % (0-5); Neutrophil # 4.32 X10^3/uL (2.7-7.7); Neutrophil % 66.3 % (47-70); Platelet Count 232 K/mm3 (150-450); RBC Distribution Width CV 12.6 % (11.6-14.6); RBC Distribution Width SD 43.8 fl (35.1-43.9); Red Blood Count 4.19 M/mm3 (4.2-5.4); White Blood Count 6.5 K/mm3 (4.4-11.0)
[2022-09-16 17:36] LABS: Vitamin D,25 Hydroxy 48.5 ng/mL
[2022-09-16 17:54] LABS: ALB/GLOB Ratio 0.8 RATIO (0.9-2.4); AST(SGOT) 42 U/L (15-37); Alanine Aminotransfer ALT/SGPT 42 U/L (13-56); Albumin, Serum 3.8 g/dL (3.2-5.0); Alkaline Phosphatase 104 U/L (45-117); Anion Gap 8 (5-15); BUN 23 mg/dL (7-18); BUN/Creat Ratio 22.3 RATIO (10-20); Calcium,Total 10.2 mg/dL (8.5-10.1); Chloride 103 mmol/L (98-107); Creatinine, Serum 1.03 mg/dL (0.55-1.02); EST Glomerular Filtration Rate 55 mL/min (>60); Est Glom Filt Rate - Afr Amer 66 mL/min (>60); Globulin 4.6 g/dL (2.2-4.2); Glucose 102 mg/dL (74-106); Potassium 3.9 mmol/L (3.5-5.1); Protein, Total 8.4 g/dL (6.4-8.2); Sodium Level 138 mmol/L (136-145); Thyroid Stim Hormone (TSH) 2.43 uIU/mL (0.358-3.74)
== END | disposition home or self-care (01) ==
LOC: POLAB3 15:07
PROVIDERS: PCP Family Medicine Geriatric Medicine; Visit Provider Family Medicine Geriatric Medicine
DX: I10 Essential (primary) hypertension (principal); E11.65 Type 2 diabetes mellitus with hyperglycemia; E55.9 Vitamin D deficiency, unspecified
CPT/HCPCS: 36415; 80053; 82306; 84443; 85025

== ENCOUNTER → 2022-12-15 | Outpatient (CLI) | payer MEDICARE, SELFPAY ==
[2022-12-15 18:11] LABS: Absolute Lymphocyte Count 1.48 X10^3/uL (0.83-4.51); Absolute Neutrophil Count 5.3 X10^3/uL (2.0-7.7); Basophil# 0.04 X10^3/uL; Basophil% 0.5 % (0-1); Eosinophil# 0.07 X10^3/uL; Eosinophils% 0.9 % (0-5); Hematocrit 38.3 % (37-47); Hemoglobin 12.6 g/dL (12.0-15.0); Lymphocyte # 1.48 X10^3/ul (0.83-4.51); Lymphocyte % 19.8 % (19-41); Mean Corp Hgb Conc 32.9 g/dL (32-36); Mean Corpuscular Volume 97.2 fL (81-99); Mean Platelet Vol. 11.8 fl (6.2-12.0); Monocyte# 0.56 X10^3/uL; Monocyte% 7.5 % (0-10); NRBC Flagged by Analyzer 0 % (0-5); Neutrophil # 5.31 X10^3/uL (2.7-7.7); Platelet Count 241 K/mm3 (150-450); RBC Distribution Width CV 13.1 % (11.6-14.6); RBC Distribution Width SD 46.7 fl (35.1-43.9); Red Blood Count 3.94 M/mm3 (4.2-5.4); White Blood Count 7.5 K/mm3 (4.4-11.0)
[2022-12-15 18:44] LABS: Vitamin D,25 Hydroxy 50.4 ng/mL
[2022-12-15 18:57] LABS: ALB/GLOB Ratio 0.8 RATIO (0.9-2.4); AST(SGOT) 38 U/L (15-37); Alanine Aminotransfer ALT/SGPT 37 U/L (13-56); Albumin, Serum 3.5 g/dL (3.2-5.0); Alkaline Phosphatase 102 U/L (45-117); Anion Gap 9 (5-15); BUN 24 mg/dL (7-18); BUN/Creat Ratio 24.2 RATIO (10-20); Calcium,Total 9.7 mg/dL (8.5-10.1); Chloride 101 mmol/L (98-107); Creatinine, Serum 0.99 mg/dL (0.55-1.02); EST Glomerular Filtration Rate 57 mL/min (>60); Est Glom Filt Rate - Afr Amer 70 mL/min (>60); Globulin 4.2 g/dL (2.2-4.2); Glucose 160 mg/dL (74-106); Potassium 3.8 mmol/L (3.5-5.1); Protein, Total 7.7 g/dL (6.4-8.2); Sodium Level 137 mmol/L (136-145); Thyroid Stim Hormone (TSH) 1.84 uIU/mL (0.358-3.74)
== END | disposition home or self-care (01) ==
LOC: POLAB3 13:34
PROVIDERS: PCP Family Medicine Geriatric Medicine; Visit Provider Family Medicine Geriatric Medicine
DX: E55.9 Vitamin D deficiency, unspecified (principal); E11.65 Type 2 diabetes mellitus with hyperglycemia; I10 Essential (primary) hypertension
CPT/HCPCS: 36415; 80053; 82306; 84443; 85025

== ENCOUNTER → 2023-03-09 | Outpatient (CLI) | payer MEDICARE, SELFPAY ==
[2023-03-09 14:18] LABS: Absolute Lymphocyte Count 1.58 X10^3/uL (0.83-4.51); Absolute Neutrophil Count 5.2 X10^3/uL (2.0-7.7); Basophil# 0.05 X10^3/uL; Basophil% 0.7 % (0-1); Eosinophil# 0.09 X10^3/uL; Eosinophils% 1.2 % (0-5); Hematocrit 40.2 % (37-47); Hemoglobin 13.2 g/dL (12.0-15.0); Lymphocyte # 1.58 X10^3/ul (0.83-4.51); Mean Corp Hgb Conc 32.8 g/dL (32-36); Mean Corpuscular Hgb 31.7 pg (27.0-32.0); Mean Corpuscular Volume 96.6 fL (81-99); Mean Platelet Vol. 10.9 fl (6.2-12.0); Monocyte# 0.62 X10^3/uL; Monocyte% 8.3 % (0-10); NRBC Flagged by Analyzer 0 % (0-5); Neutrophil # 5.15 X10^3/uL (2.7-7.7); Neutrophil % 68.5 % (47-70); Platelet Count 242 K/mm3 (150-450); RBC Distribution Width CV 12.8 % (11.6-14.6); RBC Distribution Width SD 45.5 fl (35.1-43.9); Red Blood Count 4.16 M/mm3 (4.2-5.4); White Blood Count 7.5 K/mm3 (4.4-11.0)
[2023-03-09 14:49] LABS: Vitamin D,25 Hydroxy 58.8 ng/mL
[2023-03-09 14:55] LABS: ALB/GLOB Ratio 0.8 RATIO (0.9-2.4); AST(SGOT) 32 U/L (15-37); Alanine Aminotransfer ALT/SGPT 22 U/L (13-56); Albumin, Serum 3.4 g/dL (3.2-5.0); Alkaline Phosphatase 83 U/L (45-117); Anion Gap 5 (5-15); BUN 26 mg/dL (7-18); BUN/Creat Ratio 25.5 RATIO (10-20); Calcium,Total 9.5 mg/dL (8.5-10.1); Chloride 105 mmol/L (98-107); Cholesterol 145 mg/dL (200); Creatinine, Serum 1.02 mg/dL (0.55-1.02); EST Glomerular Filtration Rate 55 mL/min (>60); Est Glom Filt Rate - Afr Amer 67 mL/min (>60); Globulin 4.2 g/dL (2.2-4.2); Glucose 182 mg/dL (74-106); High Density Lipoprotein 78 mg/dL; Potassium 3.6 mmol/L (3.5-5.1); Protein, Total 7.6 g/dL (6.4-8.2); Sodium Level 138 mmol/L (136-145); Triglycerides 48 mg/dL; Very Low Density Lipoprotein 10 mg/dL (5-40)
== END | disposition home or self-care (01) ==
LOC: LAB 13:51
PROVIDERS: PCP Family Medicine Geriatric Medicine; Referring Provider Family Medicine Geriatric Medicine; Visit Provider Family Medicine Geriatric Medicine
DX: E11.65 Type 2 diabetes mellitus with hyperglycemia (principal); I10 Essential (primary) hypertension; E55.9 Vitamin D deficiency, unspecified
CPT/HCPCS: 36415; 80053; 80061; 82306; 84443; 85025

== ENCOUNTER → 2023-03-30 | Outpatient (CLI) | payer MEDICARE, SELFPAY ==
--- NOTE | 2023-03-30 15:51 | VDUE_ITS ---
Reason For Study: edema Right Proximal Right jugular vein is spontaneous, widely patent, phasic, with no intraluminal echogenicity noted. Right subclavian vein is spontaneous, widely patent, phasic, with no intraluminal echogenicity noted. Right Lower Arm Right radial vein is compressible. Right ulnar vein is compressible. Right Arm Right axillary vein is spontaneous, patent, phasic, competent, compressible and demonstrates augmentation. Right brachial vein is compressible. Right cephalic vein is compressible. Right basilic vein is compressible. Prelim to Dr. Roth. VL/Venous Duplex US, Unilateral Interpretation Summary Deep veins of the right upper extremity are patent and compressible segmentally . There is no evidence of deep vein thrombosis. Superficial veins of the right upper extremity are patent and compressible segm entally. There is no evidence of superficial vein thrombosis. Ordering Physician: Trevor Roth Chi Performed By: Rafi Sears RVT ???
== END | disposition home or self-care (01) ==
LOC: CVS 15:49
PROVIDERS: PCP Family Medicine Geriatric Medicine; Referring Provider Family Medicine Geriatric Medicine; Visit Provider Family Medicine Geriatric Medicine
DX: R60.0 Localized edema (principal)
CPT/HCPCS: 93971

== ENCOUNTER → 2023-09-09 | Outpatient (CLI) | payer MEDICARE, SELFPAY ==
[2023-09-09 15:03] LABS: Absolute Lymphocyte Count 1.57 X10^3/uL (0.83-4.51); Absolute Neutrophil Count 5.1 X10^3/uL (2.0-7.7); Basophil# 0.06 X10^3/uL; Basophil% 0.8 % (0-1); Eosinophil# 0.07 X10^3/uL; Eosinophils% 0.9 % (0-5); Hematocrit 38.1 % (37-47); Hemoglobin 12.5 g/dL (12.0-15.0); Lymphocyte # 1.57 X10^3/ul (0.83-4.51); Lymphocyte % 21.2 % (19-41); Mean Corp Hgb Conc 32.8 g/dL (32-36); Mean Corpuscular Hgb 31.6 pg (27.0-32.0); Mean Corpuscular Volume 96.2 fL (81-99); Mean Platelet Vol. 11.4 fl (6.2-12.0); Monocyte# 0.61 X10^3/uL; Monocyte% 8.2 % (0-10); NRBC Flagged by Analyzer 0 % (0-5); Neutrophil # 5.09 X10^3/uL (2.7-7.7); Neutrophil % 68.6 % (47-70); Platelet Count 281 K/mm3 (150-450); RBC Distribution Width CV 12.7 % (11.6-14.6); RBC Distribution Width SD 45.1 fl (35.1-43.9); Red Blood Count 3.96 M/mm3 (4.2-5.4); White Blood Count 7.4 K/mm3 (4.4-11.0)
[2023-09-09 15:25] LABS: ALB/GLOB Ratio 0.7 RATIO (0.9-2.4); AST(SGOT) 35 U/L (15-37); Alanine Aminotransfer ALT/SGPT 29 U/L (13-56); Albumin, Serum 3.2 g/dL (3.2-5.0); Alkaline Phosphatase 82 U/L (45-117); Anion Gap 8 (5-15); BUN 23 mg/dL (7-18); BUN/Creat Ratio 18.4 RATIO (10-20); Calcium,Total 8.7 mg/dL (8.5-10.1); Chloride 106 mmol/L (98-107); Cholesterol 144 mg/dL (200); Creatinine, Serum 1.25 mg/dL (0.55-1.02); EST Glomerular Filtration Rate 44 mL/min (>60); Est Glom Filt Rate - Afr Amer 53 mL/min (>60); Globulin 4.4 g/dL (2.2-4.2); Glucose 156 mg/dL (74-106); High Density Lipoprotein 63 mg/dL; Potassium 4.2 mmol/L (3.5-5.1); Protein, Total 7.6 g/dL (6.4-8.2); Sodium Level 139 mmol/L (136-145); Thyroid Stim Hormone (TSH) 2.13 uIU/mL (0.358-3.74); Triglycerides 49 mg/dL; Very Low Density Lipoprotein 10 mg/dL (5-40)
[2023-09-09 15:27] LABS: Vitamin D,25 Hydroxy 47.1 ng/mL
== END | disposition home or self-care (01) ==
LOC: POLAB3 13:02
PROVIDERS: PCP Family Medicine Geriatric Medicine; Visit Provider Family Medicine Geriatric Medicine
DX: E11.65 Type 2 diabetes mellitus with hyperglycemia (principal); I10 Essential (primary) hypertension; E55.9 Vitamin D deficiency, unspecified; E78.5 Hyperlipidemia, unspecified
CPT/HCPCS: 36415; 80053; 80061; 82306; 84443; 85025

== ENCOUNTER → 2023-10-08 | Outpatient (CLI) | payer MEDICARE, SELFPAY ==
--- NOTE | 2023-10-08 12:38 | MRI_ITS ---
HISTORY: NUMBNESS OF LEFT HAND, HX OF STROKE PLEASE COMPARE TO PREVIOUS MRI AND CT. TECHNIQUE: Multiplanar and multisequence MR images of the brain were obtained without contrast. 291 images. COMPARISON: CT 05/22/2022, MR 10/27/2021. FINDINGS: BRAIN PARENCHYMA: Multiple foci and zones of increased T2 FLAIR signal in the bilateral white matter. Old left occipital infarct. Old basal ganglia, thalamic, and cerebellar lacunar infarcts. No abnormal focus of restricted diffusion. No acute intracranial hemorrhage identified. CSF SPACES: Chronic volume loss. No significant midline shift or other mass effect.No extra-axial fluid collection. VASCULAR SYSTEM: Major intracranial flow voids are maintained. PARANASAL SINUSES AND MASTOID AIR CELLS: No significant air fluid levels. ORBITS: Symmetric contents. MRI/Brain without Contrast IMPRESSION: No evidence for acute infarct. Chronic involutional and advanced white matter changes. Small chronic infarcts. Electronically Signed: Krissy Price MD at 15:48 EST ,
== END | disposition home or self-care (01) ==
LOC: MRI 12:33
PROVIDERS: PCP Family Medicine Geriatric Medicine; Referring Provider Family Medicine Geriatric Medicine; Visit Provider Family Medicine Geriatric Medicine
DX: R20.0 Anesthesia of skin (principal)
CPT/HCPCS: 70551

== ENCOUNTER → 2023-12-28 | Outpatient (CLI) | payer MEDICARE, SELFPAY ==
--- NOTE | 2023-12-28 11:11 | NEURO_ITS ---
NCS and/or EMG Patient Report Ordering Doctor: Trevor Roth Chi DATE OF SERVICE: 12/28/23 Clinical Summary: 78 year old female with symptoms of left hand numbness. Nerve Conduction Studies Summary: The left median-D2 SNAP distal latency was prolonged. The left ulnar-ADM CMAP a mplitude dropped 11% across the elbow but there was no corresponding significant drop in ulnar motor conduction velocity. Needle Examination Summary: Needle examination of select muscles of the left upper extremity was normal. Impression: There is electrodiagnostic evidence of the following - 1) Mild, left median mononeuropathy at the wrist (carpal tunnel syndrome), with sensory fiber demyelination Multi Select Codes Neurology Neurology Interp Codes: 42366-41 Musc test done w/n test comp (interp) (1) and 46607-04 Nrv cndj test 7-8 studies (interp)
== END | disposition home or self-care (01) ==
LOC: PSN 10:11
PROVIDERS: PCP Family Medicine Geriatric Medicine; Referring Provider Family Medicine Geriatric Medicine; Visit Provider Family Medicine Geriatric Medicine
DX: R20.0 Anesthesia of skin (principal)
CPT/HCPCS: 95886; 95910

== ENCOUNTER → 2024-02-09 | Outpatient (CLI) | payer MEDICARE, SELFPAY ==
--- NOTE | 2024-02-09 07:07 | ECHOD_ITS ---
Reason For Study: Afib Procedure This was a 2D Doppler, Color Flow transthoracic echocardiogram. Exam performed in department. Left Ventricle Normal LV size. Left ventricular systolic function is normal. The estimated ejection fraction is 60 %. Stage 1 diastolic dysfunction. No regional wall motion abnormalities noted. Right Ventricle Normal RV size. Normal systolic function. Atria Normal left atrium. Normal right atrium. Mitral Valve Normal mitral valve. Tricuspid Valve Normal tricuspid valve. Mild (1+) tricuspid valve insufficiency. Pulmonary artery systolic pressure is 32 mmHg. Aortic Valve Trisinus/trileaflet aortic valve. Mild (1+) aortic valve insufficiency. Pulmonic Valve Normal pulmonic valve. Great Vessels Normal aortic root. The pulmonary artery is normal size. Normal inferior vena cava. Pericardium/Pleural No pericardial effusion. MMode/2D Measurements & Calculations LVIDd: 3.8 cm IVSd: 1.2 cm Ao root diam: 3.3 cm LVIDs: 2.6 cm LVPWd: 0.85 cm RVDd: 3.5 cm FS: 31.4 % LAV(MOD-bp): 41.5 ml LVAd ap4: 20.6 cm2 SV(MOD-sp4): 34.1 ml LAV(MOD-bp) Indexed: 24.0 ml/m2 LVLd ap4: 6.9 cm LAV(MOD-sp2): 43.2 ml EDV(MOD-sp4): 50.1 ml LAV(MOD-sp4): 36.8 ml EDV(sp4-el): 52.3 ml LVAs ap4: 10.5 cm2 LVLs ap4: 5.6 cm ESV(MOD-sp4): 16.0 ml ESV(sp4-el): 16.6 ml EF(MOD-sp4): 68.1 % EF(sp4-el): 68.2 % SV(sp4-el): 35.6 ml LA A4 area: 15.0 cm2 LA dimension(2D): 3.9 cm RA A4 area: 13.1 cm2 TAPSE: 2.0 cm Time Measurements MV dec time: 0.35 sec Doppler Measurements & Calculations MV E max ramone: 85.2 cm/sec Lat Peak E' Ramone: 7.4 cm/sec Med Peak E' Ramone: 5.5 cm/sec MV A max ramone: 139.8 cm/sec E/E' lat: 11.5 E/E' med: 15.4 MV E/A: 0.61 MV V2 max: 155.3 cm/sec Ao V2 max: 177.4 cm/sec MV max P.7 mmHg MV dec slope: 246.0 cm/sec2 Ao max P.6 mmHg MV V2 mean: 78.0 cm/sec Ao V2 mean: 114.4 cm/sec MV mean P.8 mmHg Ao mean P.2 mmHg MV V2 VTI: 36.8 cm Ao V2 VTI: 39.6 cm AV (velocity ratio): 0.86 AI max ramone: 385.2 cm/sec LV V1 max: 147.0 cm/sec PA V2 max: 92.3 cm/sec AI max P.6 mmHg LV V1 max P.7 mmHg LV V1 mean P.0 mmHg AI dec slope: 292.7 cm/sec2 LV V1 mean: 91.9 cm/sec AI P1/2t: 385.5 msec LV V1 VTI: 34.0 cm TR max ramone: 268.3 cm/sec TR max P.8 mmHg ECHO/Echo Complete Interpretation Summary Normal LV size. Left ventricular systolic function is normal. The estimated ejection fraction is 60 %. Stage 1 diastolic dysfunction. Mild (1+) tricuspid valve insufficiency. Mild (1+) aortic valve insufficiency. Ordering Physician: Renny Krishnamurthy Referring Physician: Trevor Roth Chi Performed By: Monique Castellanos, IFRAH, RVT
--- NOTE | 2024-02-09 19:13 | STRESSREP ---
Stress Test Report Pharmacologic myocardial perfusion stress test. 78-year-old lady with a history of atrial fibrillation Resting EKG demonstrates sinus rhythm with a rate of 68 bpm. Resting blood pressure is 162/64 mmHg. 0.4 mg of regadenoson was infused per usual protocol followed by rapid intravenous saline flush injection. Continuous EKG monitoring was performed. The maximum heart rate was 96 bpm which was 68% of max impacted heart rate the maximum workload was 1 metabolic equivalent. At rest there were no ST or T wave changes noted to suggest ischemia and at peak infusion nonspecific ST changes were noted which did not meet the criteria for ischemia. No clinical angina is noted. The final blood pressure was 132/64 mmHg. Myocardial perfusion protocol. 11.0 mCi of technetium 99m sestamibi was injected at rest. 0.4 mg of regadenoson was infused per usual protocol. At peak infusion 35 mCi of technetium 99m sestamibi was injected stress images were obtained stress and rest images were reconstructed and compared in the short axis vertical long and horizontal long axis. Gated images were also obtained. Perfusion SPECT analysis: Review of the stress images demonstrate normal uptake of tracer noted in all areas of the myocardium. The resting images similar demonstrated normal uptake of tracer noted in all areas of the myocardium. No areas of reversibility are noted to suggest ischemia and no previous infarct is noted. Gated SPECT analysis: The gated ejection fraction is 86%. Conclusion: Normal pharmacologic myocardial perfusion stress test. Preserved ejection fraction.
== END | disposition home or self-care (01) ==
LOC: CVS 07:06
PROVIDERS: PCP Family Medicine Geriatric Medicine; Referring Provider Internal Medicine Cardiovascular Disease; Visit Provider Internal Medicine Cardiovascular Disease
DX: I48.91 Unspecified atrial fibrillation (principal); Z98.890 Other specified postprocedural states; R94.31 Abnormal electrocardiogram [ECG] [EKG]
CPT/HCPCS: 78452; 93017; 93306; A9500; A4216; J2785

== ENCOUNTER 2024-02-27 13:22 | Emergency (ER) | payer MEDICARE, SELFPAY ==
[2024-02-27 13:23] VITALS: BP 148/74; PULSE 87; RESP 14; TEMP 36.2; O2SAT 95; BMI 25.5
--- NOTE | 2024-02-27 13:37 | EX.ED.DYSGE1 ---
HPI <JACKELYN Martinez - Last Filed: 02/27/24 16:45> History of Present Illness Chief Complaint: GI Bleed Narrative Narrative: 78-year-old female with PMH of HTN, CVA, A-fib on aspirin 81 mg states she urinated at 1:30 AM last night and saw a pink tinge and a clump of blood. This occurred again this morning while she was urinating and also had a bowel movement so she is not sure where the bleeding is coming from. She states her stool was dark brown liquid. She has no fever, chills, vomiting, or abdominal pain. No history of GI bleed. PFSH <JACKELYN Martinez - Last Filed: 02/27/24 16:45> [facility] Medical History Acute CVA (cerebrovascular accident) Atrial fibrillation Calculus of gallbladder without cholecystitis without obstruction Carpal tunnel syndrome on left Cerebral infarction due to unspecified occlusion or stenosis of unspecified cerebral artery Dupuytren's contracture of left hand Hemiparesis affecting left side as late effect of stroke Hemiplegia affecting left nondominant side Hyperlipidemia Hypertension Hypothyroid ICH (intracerebral hemorrhage) Penicillin-induced allergic rash PVD (peripheral vascular disease) Type 2 diabetes mellitus with hyperglycemia Vitamin D deficiency Home Medications ?Medication ?Instructions ?Recorded ?Last Taken ?Type oqyhxpeixltq-ichadjut-bbgggi tablet 1 tab PO DAILY 10/26/21 Unknown History amlodipine 10 mg tablet 10 mg PO QHS 12/06/23 Unknown History aspirin 81 mg tablet,delayed 81 mg PO DAILY 12/06/23 Unknown History release atorvastatin 40 mg tablet 40 mg PO QHS 12/06/23 Unknown History cholecalciferol (vitamin D3) 25 5,000 unit PO DAILY 12/06/23 Unknown History mcg (1,000 unit) capsule (Vitamin D3) levothyroxine 25 mcg capsule 25 mcg PO DAILY 12/06/23 Unknown History metformin 500 mg tablet,extended 500 mg PO BID 12/06/23 Unknown History release 24 hr valsartan 320 mg tablet 320 mg PO DAILY 12/06/23 Unknown History metoprolol succinate 50 mg 50 mg PO DAILY #90 tabs 01/05/24 Unknown Rx tablet,extended release 24 hr (Toprol XL) cephalexin 500 mg capsule 500 mg PO Q12 #14 CAPSULES 02/27/24 Unknown Rx Allergy/AdvReac Type Severity Reaction Status Date / Time No Known Allergies Allergy Verified 02/27/24 13:27 Family History Father Myocardial infarction Brother CAD (coronary artery disease) Mother Cancer Surgical History Hx of carpal tunnel repair Social History household members: family housing: house Smoking Status: Never smoker substance use type: does not use what type of physical activity do you participate in: walking ROS <JACKELYN Martinez - Last Filed: 02/27/24 16:45> ROS ED ROS Narrative Constitutional: Negative for fever, chills, malaise. CVS: Negative for chest pain. Respiratory: Negative for shortness of breath. GI: Negative for abdominal pain, nausea, vomiting. : Negative for dysuria. EXAM <JACKELYN Martinez - Last Filed: 02/27/24 16:45> Physical Exam Narrative Exam Narrative: CONST: Patient sitting in no acute distress. EYES: Normal inspection. NECK: Normal inspection. RESP: No respiratory distress, CTAB. CVS: Regular rate and rhythm, no murmur, no gallop. ABD: Soft and nontender, no guarding or rebound, nondistended. : Normal external genitalia, small nonthrombosed nonbleeding external hemorrhoid, empty rectal vault with thin medium brown stool. SKIN: Color normal, no rash, warm, dry, intact. EXTREMITIES: Normal appearance, no pedal edema. NEURO: Alert and answering questions appropriately. PSYCH: Normal affect. Const Vital Signs: 02/27/24 13:23 02/27/24 15:23 02/27/24 16:37 Temperature 97.2 F L 98.6 F 98.4 F Temperature Source Temporal Oral Pulse Rate 87 61 64 Respiratory Rate 14 16 16 Blood Pressure 148/74 H 128/63 H 126/57 H Blood Pressure Mean 98 84 80 Pulse Ox 95 92 95 Oxygen Delivery Method Room Air Room Air <Dr. Blanca Pisano, - Last Filed: 03/02/24 16:47> Physical Exam Const Vital Signs: 02/27/24 13:23 02/27/24 15:23 02/27/24 16:37 Temperature 97.2 F L 98.6 F 98.4 F Temperature Source Temporal Oral Pulse Rate 87 61 64 Respiratory Rate 14 16 16 Blood Pressure 148/74 H 128/63 H 126/57 H Blood Pressure Mean 98 84 80 Pulse Ox 95 92 95 Oxygen Delivery Method Room Air Room Air MDM <JACKELYN Martinez - Last Filed: 02/27/24 16:45> [facility] Narrative Medical decision making narrative: History gathered from: Patient and daughter Differential: UTI, kidney stone, neoplasm, GI bleed Patient is having bright red bleeding and was not sure if it was from her urine or bowels. She appears well nontoxic with vital signs stable. There were no external signs of bleeding vaginally or rectally. There is a small nonthrombosed external hemorrhoid. The rectal vault was empty and had medium brown thin stool. I sent a Hemoccult however the tube was damaged in transport and cannot be run. The nurse got a straight catheterized urine sample and it is gross hematuria so this is the source and I do not think she needs a repeat Hemoccult test. Labs show normal white count of 7.7 and hemoglobin of 13.1. Urinalysis has gross hematuria but no nitrates or bacteria. It was sent for culture. CT scanning shows cystitis and her symptoms correlate with hemorrhagic cystitis show she will be treated with Keflex and provided a urology referral. She was also made aware of incidental findings of gallstones and infrarenal abdominal aortic aneurysm. She was given return precautions and discharged in stable condition. Lab Data Attestation: I reviewed the patient's lab results. Labs: Laboratory Results - last 24 hr 02/27/24 02/27/24 13:40 14:00 WBC 7.7 RBC 4.27 Hgb 13.1 Hct 39.8 MCV 93.2 MCH 30.7 MCHC 32.9 RDW Std Deviation 43.6 RDW Coeff of Ann Marie 12.8 Plt Count 264 MPV 10.6 Immature Gran % (Auto) 0.400 Neut % (Auto) 66.0 Lymph % (Auto) 21.9 Morrill % (Auto) 10.6 H Eos % (Auto) 0.5 Baso % (Auto) 0.6 Absolute Neuts (auto) 5.1 Absolute Lymphs (auto) 1.69 Nucleated RBC % 0 Sodium 138 Potassium 4.2 Chloride 105 Carbon Dioxide 23.0 Anion Gap 10 BUN 25 H Creatinine 1.07 H Estim Creat Clear Calc 39.62 Est GFR (MDRD) Af Amer 63 Est GFR (MDRD) Non-Af 52 L BUN/Creatinine Ratio 23.4 H Glucose 243 H Calcium 9.4 Urine Color Red Urine Clarity Turbid Urine pH 7.0 Ur Specific [place] 1.010 Urine Protein 500 H Urine Glucose (UA) Normal Urine Ketones 5 H Urine Occult Blood 150 H Urine Nitrite Negative Urine Bilirubin Negative Urine Urobilinogen Normal Ur Leukocyte Esterase Negative Urine RBC > 100 SEEN Urine WBC 0 SEEN Ur Squamous Epith Cells 0 SEEN Urine Bacteria 0 SEEN Urine Mucus 0 SEEN Radiography Diagnostic Testing: Clinical Impression(s) from Imaging Studies Abdomen/Pelvis CT 02/27/24 14:29 IMPRESSION: Cystitis with wall thickening of the urinary bladder. No hydronephrosis. Gallstones. No biliary dilatation. Infrarenal abdominal aortic aneurysm. Electronically Signed: Portillo Noriega MD at 15:04 EDT , <Dr. Blanca Pisano, DO - Last Filed: 03/02/24 16:47> [facility] [place] MDM Narrative Medical decision making narrative: History gathered from: Patient and daughter Differential: UTI, kidney stone, neoplasm, GI bleed Patient is having bright red bleeding and was not sure if it was from her urine or bowels. She appears well nontoxic with vital signs stable. There were no external signs of bleeding vaginally or rectally. There is a small nonthrombosed external hemorrhoid. The rectal vault was empty and had medium brown thin stool. I sent a Hemoccult however the tube was damaged in transport and cannot be run. The nurse got a straight catheterized urine sample and it is gross hematuria so this is the source and I do not think she needs a repeat Hemoccult test. Labs show normal white count of 7.7 and hemoglobin of 13.1. Urinalysis has gross hematuria but no nitrates or bacteria. It was sent for culture. CT scanning shows cystitis and her symptoms correlate with hemorrhagic cystitis show she will be treated with Keflex and provided a urology referral. She was also made aware of incidental findings of gallstones and infrarenal abdominal aortic aneurysm. She was given return precautions and discharged in stable condition. I have personally performed a face to face assessment of the patient and have reviewed the BLAISE Note. I performed a substantive portion of the visit including all aspects of the following. My caro findings include: History is patient is an 78-year-old female presenting with undifferentiated blood in the toilet. Does not have any associated pain. On exam has a nonthrombosed external hemorrhoid that does not appear to be bleeding. Does not have any obvious vaginal bleeding on external genitalia exam but on straight cath his gross hematuria. This likely the cause of the bleeding. Her hemoglobin is normal at 13.1 and she is hemodynamically stable in the ER. Patient is not on any anticoagulation secondary to history of intracranial hemorrhage. CT of the abdomen pelvis is obtained given the amount of hematuria and this does show cystitis with wall thickening of the urinary bladder. There are some incidental findings as well as goal stones and infrarenal abdominal aortic aneurysm. Patient be placed empirically on antibiotics and given urology for outpatient follow-up. Is informed of her incidental findings. Patient agreeable this plan of care. Given return precautions. Urine culture is sent and pending But for now will be treated as a hemorrhagic cystitis. Other additions or changes: [None] Lab Data Labs: Laboratory Results - last 24 hr 02/27/24 02/27/24 13:40 14:00 WBC 7.7 RBC 4.27 Hgb 13.1 Hct 39.8 MCV 93.2 MCH 30.7 MCHC 32.9 RDW Std Deviation 43.6 RDW Coeff of [place] 12.8 Plt Count 264 MPV 10.6 Immature Gran % (Auto) 0.400 Neut % (Auto) 66.0 Lymph % (Auto) 21.9 Morrill % (Auto) 10.6 H Eos % (Auto) 0.5 Baso % (Auto) 0.6 Absolute Neuts (auto) 5.1 Absolute Lymphs (auto) 1.69 Nucleated RBC % 0 Sodium 138 Potassium 4.2 Chloride 105 Carbon Dioxide 23.0 Anion Gap 10 BUN 25 H Creatinine 1.07 H Estim Creat Clear Calc 39.62 Est GFR (MDRD) Af Amer 63 Est GFR (MDRD) Non-Af 52 L BUN/Creatinine Ratio 23.4 H Glucose 243 H Calcium 9.4 Urine Color Red Urine Clarity Turbid Urine pH 7.0 Ur Specific [place] 1.010 Urine Protein 500 H Urine Glucose (UA) Normal Urine Ketones 5 H Urine Occult Blood 150 H Urine Nitrite Negative Urine Bilirubin Negative Urine Urobilinogen Normal Ur Leukocyte Esterase Negative Urine RBC > 100 SEEN Urine WBC 0 SEEN Ur Squamous Epith Cells 0 SEEN Urine Bacteria 0 SEEN Urine Mucus 0 SEEN Radiography Diagnostic Testing: Clinical Impression(s) from Imaging Studies Abdomen/Pelvis CT 02/27/24 14:29 IMPRESSION: Cystitis with wall thickening of the urinary bladder. No hydronephrosis. Gallstones. No biliary dilatation. Infrarenal abdominal aortic aneurysm. Electronically Signed: Portillo Noriega MD at 15:04 EDT , Discharge Plan Triage Chief Complaint: GI Bleed ED Midlevel Provider: Elisabeth Vieyra ED Provider: Blanca Pisano Dx/Rx/DC Orders Clinical Impression: Acute hemorrhagic cystitis Instructions: ED Hematuria, ED Cystitis Female Adult Prescriptions: New cephalexin 500 mg capsule 500 mg PO Q12 Qty: 14 0RF No Action aspirin 81 mg tablet,delayed release (DR/EC) 81 mg PO DAILY Patient Comments: TAKE 1 TABLET BY MOUTH EVERY DAY metformin 500 mg tablet extended release 24 hr 500 mg PO BID atorvastatin 40 mg tablet 40 mg PO QHS levothyroxine 25 mcg capsule 25 mcg PO DAILY amlodipine 10 mg tablet 10 mg PO QHS Patient Comments: TAKE 1 TABLET BY MOUTH EVERY DAY AT BEDTIME valsartan 320 mg tablet 320 mg PO DAILY Patient Comments: TAKE 1 TABLET BY MOUTH EVERY DAY AT BEDTIME metoprolol succinate [Toprol XL] 50 mg tablet extended release 24 hr 50 mg PO DAILY Qty: 90 3RF uyjxwnlgvalo-wvozjyre-wyaufe Tablet 1 tab PO DAILY cholecalciferol (vitamin D3) [Vitamin D3] 25 mcg (1,000 unit) capsule 5,000 unit PO DAILY Primary Care Provider: Trevor Roth Chi Referrals: Trevor Roth Chi, MD [Primary Care Provider] - Activity Restrictions/Additional Instructions: The CT scan shows signs of infection so I prescribed an antibiotic. I recommend you follow-up with urology. The scan also shows gallstones and an abdominal aortic aneurysm. This can be monitored by your primary care doctor. Print Language: Divehi Disposition Disposition: Home, Self Care Discharge Date/Time: 02/27/24 16:47
[2024-02-27 13:48] LABS: Absolute Lymphocyte Count 1.69 X10^3/uL (0.83-4.51); Absolute Neutrophil Count 5.1 X10^3/uL (2.0-7.7); Basophil# 0.05 X10^3/uL; Basophil% 0.6 % (0-1); Eosinophil# 0.04 X10^3/uL; Eosinophils% 0.5 % (0-5); Hematocrit 39.8 % (37-47); Hemoglobin 13.1 g/dL (12.0-15.0); Lymphocyte # 1.69 X10^3/ul (0.83-4.51); Lymphocyte % 21.9 % (19-41); Mean Corp Hgb Conc 32.9 g/dL (32-36); Mean Corpuscular Hgb 30.7 pg (27.0-32.0); Mean Corpuscular Volume 93.2 fL (81-99); Mean Platelet Vol. 10.6 fl (6.2-12.0); Monocyte# 0.82 X10^3/uL; Monocyte% 10.6 % (0-10); NRBC Flagged by Analyzer 0 % (0-5); Neutrophil # 5.09 X10^3/uL (2.7-7.7); Platelet Count 264 K/mm3 (150-450); RBC Distribution Width CV 12.8 % (11.6-14.6); RBC Distribution Width SD 43.6 fl (35.1-43.9); Red Blood Count 4.27 M/mm3 (4.2-5.4); White Blood Count 7.7 K/mm3 (4.4-11.0)
[2024-02-27 14:01] LABS: Anion Gap 10 (5-15); BUN 25 mg/dL (7-18); BUN/Creat Ratio 23.4 RATIO (10-20); Calcium,Total 9.4 mg/dL (8.5-10.1); Chloride 105 mmol/L (98-107); Creatinine, Serum 1.07 mg/dL (0.55-1.02); EST Glomerular Filtration Rate 52 mL/min (>60); Est Glom Filt Rate - Afr Amer 63 mL/min (>60); Estimated Creatinine Clearance 39.62 ml/min; Glucose 243 mg/dL (74-106); Potassium 4.2 mmol/L (3.5-5.1); Sodium Level 138 mmol/L (136-145)
[2024-02-27 14:08] LABS: Bacteria 0 SEEN /hpf (None Seen); Mucous, Urine 0 SEEN /hpf (<or=2+); Squamous Epithelial Cells - UA 0 SEEN /hpf (5-10); White Blood Cells 0 SEEN /hpf (0-5)
[2024-02-27 14:10] LABS: Color, Urine Red (Yellow); Glucose, Dipstick Normal (Normal); Ketone-Dipstick 5 mg/dl (Negative); Leukocyte Esterase-Dipstick Negative /ul (Negative); Nitrite-Dipstick Negative (Negative); Occult Blood-Urine 150 /ul (Negative); Protein-Dipstick 500 mg/dl (Negative); Urine Bilirubin Dipstick Negative (Negative); Urine Clarity Turbid (Clear); Urine Urobilinogen Normal (Normal)
[2024-02-27 14:15] LABS: Red Blood Cells-Urine > 100 SEEN /hpf (0-5)
--- NOTE | 2024-02-27 14:29 | CT_ITS ---
STUDY: CT ABDOMEN AND PELVIS WITHOUT CONTRAST REASON FOR EXAM: Female, 78 years old. HEMATURIA RADIATION DOSAGE (If Supplied By Facility): CTDIvol = ( 9.31 ) mGy, DLP = ( 449.01 ) mGycm TECHNIQUE: Transaxial images were obtained from the dome of the diaphragm to the symphysis pubis without oral contrast, and without intravenous contrast. Sagittal and coronal images were reconstructed. Individualized dose optimization techniques were used for this CT. COMPARISON: None. FINDINGS: The visualized lung bases are unremarkable. The visualized portions of the heart are within normal limits. Normal liver. There are multiple gallstones. Normal spleen. Normal pancreas. Normal bilateral adrenal glands. Normal right kidney. Normal left kidney. Normal visualized stomach. Normal small intestine. There are multiple colonic diverticula consistent with diverticulosis. The appendix is visualized and appears normal. There is atherosclerotic calcification of the abdominal aorta, with a 3.7 cm infrarenal aneurysm. Normal inferior vena cava. Normal retroperitoneum. There is wall thickening of the urinary bladder. Normal visualized uterus. There is no free fluid in the abdomen or pelvis. Normal abdominal wall. There is degenerative change of the spine. CT/Abdomen/Pelvis without Cont IMPRESSION: Cystitis with wall thickening of the urinary bladder. No hydronephrosis. Gallstones. No biliary dilatation. Infrarenal abdominal aortic aneurysm. Electronically Signed: Portillo Noriega MD at 15:04 EDT ,
[2024-02-27 15:23] VITALS: BP 128/63; PULSE 61; RESP 16; TEMP 37; O2SAT 92
[2024-02-27] MEDS: Cephalexin 250 MG Capsule 500 MG PO (16:36)
[2024-02-27 16:37] VITALS: BP 126/57; PULSE 64; RESP 16; TEMP 36.9; O2SAT 95
== END 2024-02-27 16:47 | disposition home or self-care (01) ==
PROVIDERS: Physician Assistant; Emergency Provider Emergency Medicine; PCP Family Medicine Geriatric Medicine; Visit Provider Emergency Medicine
DX: N30.90 Cystitis, unspecified without hematuria (principal); I48.91 Unspecified atrial fibrillation; E11.9 Type 2 diabetes mellitus without complications; I10 Essential (primary) hypertension; Z86.73 Personal history of transient ischemic attack (TIA), and cerebral infarction without residual deficits; E78.5 Hyperlipidemia, unspecified; Z79.899 Other long term (current) drug therapy; Z79.82 Long term (current) use of aspirin; E03.9 Hypothyroidism, unspecified
CPT/HCPCS: 74176; 80048; 81001; 85025; 87077; 87086; 87088; 87186; 99285; P9612; A4216

== ENCOUNTER → 2024-03-04 | Outpatient (CLI) | payer MEDICARE, SELFPAY ==
[2024-03-04 11:14] LABS: Hematocrit 38.9 % (37-47); Hemoglobin 12.7 g/dL (12.0-15.0); Mean Corp Hgb Conc 32.6 g/dL (32-36); Mean Corpuscular Hgb 30.9 pg (27.0-32.0); Mean Corpuscular Volume 94.6 fL (81-99); Mean Platelet Vol. 10.4 fl (6.2-12.0); Platelet Count 262 K/mm3 (150-450); RBC Distribution Width CV 12.9 % (11.6-14.6); RBC Distribution Width SD 45.4 fl (35.1-43.9); Red Blood Count 4.11 M/mm3 (4.2-5.4); White Blood Count 8.5 K/mm3 (4.4-11.0)
[2024-03-04 11:36] LABS: Anion Gap 6 (5-15); BUN 17 mg/dL (7-18); BUN/Creat Ratio 19.1 RATIO (10-20); Calcium,Total 9.2 mg/dL (8.5-10.1); Chloride 104 mmol/L (98-107); Creatinine, Serum 0.89 mg/dL (0.55-1.02); EST Glomerular Filtration Rate 65 mL/min (>60); Est Glom Filt Rate - Afr Amer 79 mL/min (>60); Glucose 129 mg/dL (74-106); Potassium 3.8 mmol/L (3.5-5.1); Sodium Level 137 mmol/L (136-145)
== END | disposition home or self-care (01) ==
LOC: LAB 10:49
PROVIDERS: PCP Family Medicine Geriatric Medicine; Referring Provider Internal Medicine Cardiovascular Disease; Visit Provider Internal Medicine Cardiovascular Disease
DX: E78.5 Hyperlipidemia, unspecified (principal); I48.91 Unspecified atrial fibrillation; I47.20 Ventricular tachycardia, unspecified; I63.9 Cerebral infarction, unspecified
CPT/HCPCS: 36415; 80048; 85027

== ENCOUNTER → 2024-03-14 | Outpatient (CLI) | payer MEDICARE, SELFPAY ==
[2024-03-14 14:48] LABS: Absolute Lymphocyte Count 1.33 X10^3/uL (0.83-4.51); Absolute Neutrophil Count 2.5 X10^3/uL (2.0-7.7); Basophil# 0.03 X10^3/uL; Basophil% 0.6 % (0-1); Eosinophil# 0.04 X10^3/uL; Eosinophils% 0.8 % (0-5); Hematocrit 37.8 % (37-47); Hemoglobin 12.3 g/dL (12.0-15.0); Lymphocyte # 1.33 X10^3/ul (0.83-4.51); Lymphocyte % 28.1 % (19-41); Mean Corp Hgb Conc 32.5 g/dL (32-36); Mean Corpuscular Hgb 31.1 pg (27.0-32.0); Mean Corpuscular Volume 95.5 fL (81-99); Mean Platelet Vol. 10.8 fl (6.2-12.0); Monocyte# 0.87 X10^3/uL; Monocyte% 18.4 % (0-10); NRBC Flagged by Analyzer 0 % (0-5); Neutrophil # 2.46 X10^3/uL (2.7-7.7); Neutrophil % 51.9 % (47-70); Platelet Count 210 K/mm3 (150-450); RBC Distribution Width CV 13.6 % (11.6-14.6); RBC Distribution Width SD 47.8 fl (35.1-43.9); Red Blood Count 3.96 M/mm3 (4.2-5.4); White Blood Count 4.7 K/mm3 (4.4-11.0)
[2024-03-14 16:13] LABS: Vitamin D,25 Hydroxy 58.2 ng/mL
[2024-03-14 16:44] LABS: ALB/GLOB Ratio 0.7 RATIO (0.9-2.4); AST(SGOT) 26 U/L (15-37); Alanine Aminotransfer ALT/SGPT 22 U/L (13-56); Albumin, Serum 2.9 g/dL (3.2-5.0); Alkaline Phosphatase 69 U/L (45-117); Anion Gap 6 (5-15); BUN 23 mg/dL (7-18); BUN/Creat Ratio 23.9 RATIO (10-20); Calcium,Total 9.2 mg/dL (8.5-10.1); Chloride 105 mmol/L (98-107); Cholesterol 138 mg/dL (200); Creatinine, Serum 0.96 mg/dL (0.55-1.02); EST Glomerular Filtration Rate 59 mL/min (>60); Est Glom Filt Rate - Afr Amer 72 mL/min (>60); Glucose 168 mg/dL (74-106); High Density Lipoprotein 50 mg/dL; Potassium 4.5 mmol/L (3.5-5.1); Protein, Total 6.9 g/dL (6.4-8.2); Sodium Level 136 mmol/L (136-145); Thyroid Stim Hormone (TSH) 2.11 uIU/mL (0.358-3.74); Triglycerides 61 mg/dL; Very Low Density Lipoprotein 12 mg/dL (5-40)
[2024-03-14 17:25] LABS: Hemoglobin A1c 7.1 % (3.8-5.6)
== END | disposition home or self-care (01) ==
LOC: LABSPEC 13:56
PROVIDERS: PCP Family Medicine Geriatric Medicine; Referring Provider Family Medicine Geriatric Medicine; Visit Provider Family Medicine Geriatric Medicine
DX: I10 Essential (primary) hypertension (principal); E11.9 Type 2 diabetes mellitus without complications; E78.5 Hyperlipidemia, unspecified; E55.9 Vitamin D deficiency, unspecified
CPT/HCPCS: 36415; 80053; 80061; 82306; 83036; 84443; 85025

== ENCOUNTER → 2024-03-17 | Outpatient (CLI) | payer MEDICARE, SELFPAY | END | disposition home or self-care (01) | LOC: LABSPEC 06:48 | PROVIDERS: PCP Family Medicine Geriatric Medicine; Visit Provider Family Medicine Geriatric Medicine | DX: E11.65 Type 2 diabetes mellitus with hyperglycemia (principal) ==

== ENCOUNTER → 2024-07-11 | Outpatient (CLI) | payer MEDICARE, SELFPAY ==
[2024-07-11 13:10] LABS: Anion Gap 8 (5-15); BUN 23 mg/dL (7-18); Calcium,Total 10.2 mg/dL (8.5-10.1); Chloride 104 mmol/L (98-107); EST Glomerular Filtration Rate 57 mL/min (>60); Est Glom Filt Rate - Afr Amer 68 mL/min (>60); Glucose 119 mg/dL (74-106); Potassium 3.7 mmol/L (3.5-5.1); Sodium Level 137 mmol/L (136-145)
== END | disposition home or self-care (01) ==
LOC: LAB 11:27
PROVIDERS: PCP Family Medicine Geriatric Medicine; Referring Provider Nurse Practitioner Gerontology; Visit Provider Nurse Practitioner Gerontology
DX: I47.20 Ventricular tachycardia, unspecified (principal); I48.91 Unspecified atrial fibrillation
CPT/HCPCS: 36415; 80048

== ENCOUNTER 2024-07-20 10:28 | Day surgery (SDC) | payer MEDICARE, SELFPAY ==
--- NOTE | 2024-04-19 17:31 | PCM.HP.BLA ---
History and Physical Pleasant 78-year-old lady who is here for discussion and evaluation of an implantable loop recorder. She does have a history of hypertension, hyperlipidemia, diabetes mellitus, previous cerebrovascular accidents. At that time she was worked up with an echocardiogram which demonstrated preserved ejection fraction, and an event monitor which unfortunately did not detect some wide-complex tachycardia rhythms but to the best of her knowledge were not addressed. She has not had any recent cerebrovascular accidents. Her blood pressure appears to be under good control she has not had any dizziness or diaphoresis no near syncope or syncope. Her physical exam is unremarkable her electrocardiogram demonstrates sinus rhythm with a rate of 77 bpm and no acute changes. For echocardiogram demonstrated an ejection fraction of 60% with mild tricuspid and aortic valve insufficiency. Stress test was negative for ischemia. No Known Allergies Allergy (Verified 01/05/24 10:35) [facility] Medical History Acute CVA (cerebrovascular accident) Atrial fibrillation Calculus of gallbladder without cholecystitis without obstruction Carpal tunnel syndrome on left Cerebral infarction due to unspecified occlusion or stenosis of unspecified cerebral artery Dupuytren's contracture of left hand Hemiparesis affecting left side as late effect of stroke Hemiplegia affecting left nondominant side Hyperlipidemia Hypertension Hypothyroid ICH (intracerebral hemorrhage) Penicillin-induced allergic rash PVD (peripheral vascular disease) Type 2 diabetes mellitus with hyperglycemia Vitamin D deficiency Surgical History Hx of carpal tunnel repair Family History Father Myocardial infarction Brother CAD (coronary artery disease) Mother Cancer Social History household members: family housing: house Smoking Status: Never smoker substance use type: does not use what type of physical activity do you participate in: walking ROS Const Const: Positive for fatigue; Negative for weakness, headache(s), daytime sleepiness or difficulty sleeping ENT ENT: Negative for headache(s), dizziness or Nosebleed/epistaxis Cardio Chest Pain: No Palpitations: No Edema: Left (LLE at times) Resp Respiratory: Negative for SOB with activity, SOB at rest, SOB orthopnea\SOB lying down or Cough GI GI: Negative nausea, vomiting or heartburn Neuro Neuro: Negative for dizziness, lightheadedness, near syncope, headache(s) or weakness Endo Endo: Positive for fatigue Cardiology Exam Const Appearance: cooperative, healthy appearing, no acute distress, well developed and well groomed Nutritional Appearance: average body habitus and well nourished Orientation: alert, awake and oriented x3 Head Head: normal to inspection, normocephalic and atraumatic Ears: hearing grossly normal bilaterally and external ears normal Nose: external nose normal, nares normal, nasal mucous membranes and turbinates normal, septum normal and no nasal discharge Face and Sinus: face symmetric Mouth: oral mucosae normal, tongue normal, oropharynx normal and moist mucous membranes Teeth and gingiva: dentition normal Throat: posterior oropharynx normal, tonsils normal and uvula midline Eyes General: appearance normal, both eyes and all related structures Eyelids: eyelids normal Conjunctivae: conjunctivae normal Pupils: PERRL, normal by confrontation and accommodation normal EOM: EOM intact bilaterally Neck Neck: normal visual inspection, trachea midline and no JVD JVD: +5 Carotids: normal carotid upstroke and bounding pulses Chest Chest inspection: normal inspection of the chest, symmetric chest movement and normal respiratory effort Auscultation: Bilateral: Clear to Auscultation Cardio Palpation: normal PMI Rate: regular rate Rhythm: regular rhythm Heart sounds: S1 normal, S2 normal and normal, physiologic split S2; Negative rub, gallop or murmur GI GI: normal to inspection, soft, no hepatosplenomegaly and bowel sounds present Neuro General: patient alert, patient awake, patient oriented x3, gait normal, moves all extremities and no focal sensory deficit Skin Skin: no rashes or lesions noted Extremities Pulses: Normal: Right Femoral Pulse, Left Femoral Pulse, Right Dorsalis Pedis Pulse, Left Dorsalis Pedis Pulse, Right Posterior Tibial Pulse, Left Posterior Tibial Pulse, Right Radial Pulse and Left Radial Pulse Lower Extremity Edema: None: Bilateral Musculoskel Musculoskeletal: No joint tenderness Psych Psychological: normal affect Supplemental Info Supplemental Information Echocardiogram 02/19/22 Interpretation Summary Left ventricle: Chamber size is normal. Concentric remodeling is present. Normal global wall motion. Regional wall motion is normal. Ejection fraction is normal (60-65%). Diastolic function is consistent with pseudonormalization. (grade II) Right ventricle: Chamber size is normal. Systolic function is normal. Left Atrium: Chamber size is mildly enlarged. Aortic valve: Trileaflet valve. Non-specific thickening. Leaflet mobility is normal. Mild to moderate regurgitation. No stenosis. Estimated right ventricular systolic pressure is 29mmHg. Estimated right atrial pressure is 3.00mmHg. Echocardiogram 10/26/21 Interpretation Summary Normal LV size. Left ventricular systolic function is normal. The estimated ejection fraction is 60 %. Stage 1 diastolic dysfunction. Pulmonary artery systolic pressure is 30 mmHg. 30 Day Event Monitor 02/20/22 Baseline sample showed Sinus Rhythm w/ artifact with a heart rate of 91.4 bpm. There were 0 critical, 0 serious, and 6 stable events that occurred. Labs: LDL Cholesterol 71 mg/dL (0-130) HDL Cholesterol 63 mg/dL (40-) Cholesterol 144 mg/dL (200) Triglycerides 49 mg/dL (-199) Diagnostics: Electrocardiogram Venous Doppler Study Pulmonary: No Data to Display Past Visits: Cardiology Visit 01/05/24 Assessment and Plan (1) Acute CVA (cerebrovascular accident): (2) Essential hypertension: (3) V-tach: (4) Atrial fibrillation: Will proceed with a loop recorder, follow-up will be based upon what we find on her loop recorder.
[2024-07-19 10:43] VITALS: BMI 27.4
--- NOTE | 2024-07-20 11:52 | CL.IE_ITS ---
Patient: KELLY MICHAEL Study Date: 07/20/2024 Performing: Renny Krishnamurthy MD : 1945 Age: 79 Gender: female PROCEDURES PERFORMED [id number])INSERTION OF LOOP RECORDER INDICATIONS Cryptogenic stroke PROCEDURE DETAILS The patient was brought to the Catheterization Lab in the postabsorptive nonsedated state. Informed consent was obtained prior to the procedure. Local anesthetic was given subcutaneously to the left upper chest area with Lidocaine 2%. Incision was made to the left upper chest. ICM Loop Recorder was inserted. Steri-strips applied to Lt chest area. The patient tolerated the procedure well. Estimated Blood Loss: 10 ml's IMPLANTED / EX-PLANTED DEVICES IMPLANTED DEVICE(S): ICM Loop Recorder - Personal Computer Specialist: [employer], Model # Assert IQ - EL+ , Serial # [id number] DEVICE PARAMETERS CONCLUSIONS / RECOMMENDATIONS Device Conclusions: Successful implantation of a patient activated loop recorder. Device Recommendations: Follow up with Primary Care Physician PROCEDURE MEDICATIONS Fentanyl 50 mcg IV Versed 1 mg IV Oxygen: 2 L/min via nasal cannula Antibiotic given in appropriate timeframe. Ancef 2 Gm IV @ 07/20/2024 11:20:50 Signed By Renny Krishnamurthy MD On 07/20/2024 11:51:33 Renny Krishnamurthy MD
== END 2024-07-20 12:45 | disposition home or self-care (01) ==
PROVIDERS: PCP Family Medicine Geriatric Medicine; Referring Provider Internal Medicine Cardiovascular Disease; Visit Provider Internal Medicine Cardiovascular Disease
DX: I63.9 Cerebral infarction, unspecified (principal); I69.354 Hemiplegia and hemiparesis following cerebral infarction affecting left non-dominant side; I48.91 Unspecified atrial fibrillation; E11.9 Type 2 diabetes mellitus without complications; E78.5 Hyperlipidemia, unspecified; I08.2 Rheumatic disorders of both aortic and tricuspid valves; I10 Essential (primary) hypertension; I47.10 Supraventricular tachycardia, unspecified; R53.83 Other fatigue; Z82.49 Family history of ischemic heart disease and other diseases of the circulatory system
CPT/HCPCS: 33285; 99152; J2405

== ENCOUNTER → 2024-09-12 | Outpatient (CLI) | payer MEDICARE, SELFPAY ==
[2024-09-12 10:16] LABS: Absolute Lymphocyte Count 2.08 X10^3/uL (0.83-4.51); Absolute Neutrophil Count 6.1 X10^3/uL (2.0-7.7); Basophil# 0.06 X10^3/uL; Basophil% 0.6 % (0-1); Eosinophil# 0.08 X10^3/uL; Eosinophils% 0.8 % (0-5); Hematocrit 39.3 % (37-47); Hemoglobin 13.1 g/dL (12.0-15.0); Lymphocyte # 2.08 X10^3/ul (0.83-4.51); Lymphocyte % 22.1 % (19-41); Mean Corp Hgb Conc 33.3 g/dL (32-36); Mean Corpuscular Hgb 31.2 pg (27.0-32.0); Mean Corpuscular Volume 93.6 fL (81-99); Mean Platelet Vol. 10.6 fl (6.2-12.0); Monocyte# 1.05 X10^3/uL; Monocyte% 11.1 % (0-10); NRBC Flagged by Analyzer 0 % (0-5); Neutrophil # 6.14 X10^3/uL (2.7-7.7); Neutrophil % 65.2 % (47-70); Platelet Count 298 K/mm3 (150-450); RBC Distribution Width SD 44.3 fl (35.1-43.9); White Blood Count 9.4 K/mm3 (4.4-11.0)
[2024-09-12 10:52] LABS: Vitamin D,25 Hydroxy 51.9 ng/mL
[2024-09-12 10:56] LABS: ALB/GLOB Ratio 0.7 RATIO (0.9-2.4); AST(SGOT) 20 U/L (15-37); Alanine Aminotransfer ALT/SGPT 16 U/L (13-56); Albumin, Serum 3.2 g/dL (3.2-5.0); Alkaline Phosphatase 77 U/L (45-117); Anion Gap 8 (5-15); BUN 25 mg/dL (7-18); BUN/Creat Ratio 18.5 RATIO (10-20); Chloride 103 mmol/L (98-107); Cholesterol 130 mg/dL (200); Creatinine, Serum 1.35 mg/dL (0.55-1.02); EST Glomerular Filtration Rate 40 mL/min (>60); Est Glom Filt Rate - Afr Amer 48 mL/min (>60); Globulin 4.5 g/dL (2.2-4.2); Glucose 288 mg/dL (74-106); High Density Lipoprotein 58 mg/dL; Potassium 3.9 mmol/L (3.5-5.1); Protein, Total 7.7 g/dL (6.4-8.2); Sodium Level 135 mmol/L (136-145); Triglycerides 63 mg/dL; Very Low Density Lipoprotein 13 mg/dL (5-40)
[2024-09-12 14:51] LABS: Hemoglobin A1c 6.8 % (3.8-5.6)
== END | disposition home or self-care (01) ==
LOC: POLAB3 10:04
PROVIDERS: PCP Family Medicine Geriatric Medicine; Visit Provider Family Medicine Geriatric Medicine
DX: E11.65 Type 2 diabetes mellitus with hyperglycemia (principal); I10 Essential (primary) hypertension; E55.9 Vitamin D deficiency, unspecified; E78.5 Hyperlipidemia, unspecified
CPT/HCPCS: 36415; 80053; 80061; 82306; 83036; 84443; 85025

== ENCOUNTER → 2024-11-14 | Outpatient (CLI) | payer MEDICARE, SELFPAY ==
[2024-11-14 17:56] LABS: Microalbumin:Creatinine Ratio 194.3 mg/g CRE (<30 mg/g CRE)
== END | disposition home or self-care (01) ==
PROVIDERS: PCP Family Medicine Geriatric Medicine; Referring Provider Family Medicine Geriatric Medicine; Visit Provider Family Medicine Geriatric Medicine
DX: E11.65 Type 2 diabetes mellitus with hyperglycemia (principal)
CPT/HCPCS: 82043; 82570

== ENCOUNTER → 2024-12-19 | Outpatient (CLI) | payer MEDICARE, SELFPAY ==
[2024-12-19 13:02] LABS: Anion Gap 14 (5-15); BUN 20 mg/dL (4-19); BUN/Creat Ratio 21.2 RATIO (10-20); Calcium,Total 10.2 mg/dL (7.6-11.0); Carbon Dioxide 23.7 mmol/L (21.0-32.0); Chloride 101 mmol/L (98-108); Creatinine, Serum 0.96 mg/dL (0.70-1.20); EST Glomerular Filtration Rate 59 (>60); Glucose 167 mg/dL (70-99); Potassium 3.9 mmol/L (3.3-5.1); Sodium Level 138 mmol/L (133-145)
== END | disposition home or self-care (01) ==
LOC: LAB 11:50
PROVIDERS: PCP Family Medicine Geriatric Medicine; Referring Provider Internal Medicine Nephrology; Visit Provider Internal Medicine Nephrology
DX: N17.9 Acute kidney failure, unspecified (principal)
CPT/HCPCS: 36415; 80048

== ENCOUNTER → 2025-03-14 | Outpatient (CLI) | payer MEDICARE, SELFPAY ==
[2025-03-14 17:36] LABS: Absolute Lymphocyte Count 1.96 X10^3/uL (0.83-4.51); Absolute Neutrophil Count 5.1 X10^3/uL (2.0-7.7); Basophil# 0.05 X10^3/uL; Basophil% 0.6 % (0-1); Eosinophil# 0.11 X10^3/uL; Eosinophils% 1.4 % (0-5); Hematocrit 40.6 % (37-47); Hemoglobin 13.7 g/dL (12.0-15.0); Lymphocyte # 1.96 X10^3/ul (0.83-4.51); Lymphocyte % 24.4 % (19-41); Mean Corp Hgb Conc 33.7 g/dL (32-36); Mean Corpuscular Hgb 31.2 pg (27.0-32.0); Mean Corpuscular Volume 92.5 fL (81-99); Mean Platelet Vol. 11.3 fl (6.2-12.0); Monocyte# 0.76 X10^3/uL; Monocyte% 9.5 % (0-10); NRBC Flagged by Analyzer 0 % (0-5); Neutrophil # 5.13 X10^3/uL (2.7-7.7); Platelet Count 263 K/mm3 (150-450); RBC Distribution Width SD 47.2 fl (35.1-43.9); Red Blood Count 4.39 M/mm3 (4.2-5.4)
[2025-03-14 18:25] LABS: Microalbumin:Creatinine Ratio 1372.8 mg/g CRE
[2025-03-14 18:56] LABS: Cholesterol 153 mg/dL (<=200); High Density Lipoprotein 62 mg/dL; Low Density Lipoprotein Calc. 78 mg/dL; Triglycerides 67 mg/dL; Very Low Density Lipoprotein 13 mg/dL (5-40); Vitamin D,25 Hydroxy 59.2 ng/mL (30-100); cholesterol:hdl ratio screen 2.48
[2025-03-14 19:02] LABS: ALB/GLOB Ratio 1.1 RATIO (0.9-2.4); AST(SGOT) 36 U/L (<=31); Alanine Aminotransfer ALT/SGPT 19 U/L (<=34); Albumin, Serum 4.1 g/dL (3.4-4.8); Alkaline Phosphatase 85 U/L (35-104); Anion Gap 14 (5-15); BUN 25 mg/dL (4-19); BUN/Creat Ratio 23.1 RATIO (10-20); Calcium,Total 10.2 mg/dL (7.6-11.0); Carbon Dioxide 23.1 mmol/L (21.0-32.0); Chloride 102 mmol/L (98-108); Creatinine, Serum 1.09 mg/dL (0.70-1.20); EST Glomerular Filtration Rate 51 (>60); Globulin 3.9 g/dL (2.2-4.2); Glucose 142 mg/dL (70-99); Potassium 4.2 mmol/L (3.3-5.1); Sodium Level 139 mmol/L (133-145); Total Bilirubin 0.45 mg/dL (0.00-1.30)
[2025-03-14 19:04] LABS: Hemoglobin A1c 7.2 % (<=5.6)
== END | disposition home or self-care (01) ==
LOC: LAB 16:13
PROVIDERS: PCP Family Medicine Geriatric Medicine; Referring Provider Family Medicine Geriatric Medicine; Visit Provider Family Medicine Geriatric Medicine
DX: E11.65 Type 2 diabetes mellitus with hyperglycemia (principal); E78.5 Hyperlipidemia, unspecified; E55.9 Vitamin D deficiency, unspecified; I10 Essential (primary) hypertension
CPT/HCPCS: 36415; 80053; 80061; 82043; 82306; 82570; 83036; 84443; 85025

== ENCOUNTER → 2025-04-05 | Outpatient (CLI) | payer MEDICARE, SELFPAY | END | disposition home or self-care (01) | LOC: CVS 08:49 | PROVIDERS: PCP Family Medicine Geriatric Medicine; Referring Provider Family Medicine Geriatric Medicine; Visit Provider Family Medicine Geriatric Medicine | DX: I71.43 Infrarenal abdominal aortic aneurysm, without rupture (principal) | CPT/HCPCS: 93978 ==

== ENCOUNTER → 2025-09-13 | Outpatient (CLI) | payer MEDICARE, SELFPAY ==
[2025-09-13 14:35] LABS: Hematocrit 40.4 % (37-47); Hemoglobin 13.5 g/dL (12.0-15.0); Immature Granulocytes Count 0.020 X10^3/uL (0.0-0.0); Mean Corp Hgb Conc 33.4 g/dL (32-36); Mean Corpuscular Volume 94.8 fL (81-99); Mean Platelet Vol. 10.7 fl (6.2-12.0); NRBC Flagged by Analyzer 0 % (0-5); Platelet Count 265 K/mm3 (150-450); RBC Distribution Width CV 13.2 % (11.6-14.6); RBC Distribution Width SD 45.5 fl (35.1-43.9); Red Blood Count 4.26 M/mm3 (4.2-5.4); White Blood Count 7.1 K/mm3 (4.4-11.0)
[2025-09-13 15:43] LABS: AST(SGOT) 29 U/L (<=31); Alanine Aminotransfer ALT/SGPT 16 U/L (<=34); Albumin, Serum 3.6 g/dL (3.4-4.8); Alkaline Phosphatase 78 U/L (35-104); Anion Gap 12 (5-15); BUN 21 mg/dL (4-19); BUN/Creat Ratio 22.0 RATIO (10-20); Calcium,Total 9.5 mg/dL (7.6-11.0); Carbon Dioxide 22.3 mmol/L (21.0-32.0); Chloride 104 mmol/L (98-108); Globulin 3.4 g/dL (2.2-4.2); Glucose 160 mg/dL (70-99); Potassium 4.1 mmol/L (3.3-5.1)
[2025-09-13 15:48] LABS: Vitamin D,25 Hydroxy 39.3 ng/mL (30-100)
[2025-09-13 22:19] LABS: Xtra Tube Kwok EXTRA TUBE
== END | disposition home or self-care (01) ==
LOC: POLAB3 14:18
PROVIDERS: PCP Family Medicine Geriatric Medicine; Visit Provider Family Medicine Geriatric Medicine
DX: E03.9 Hypothyroidism, unspecified (principal); E55.9 Vitamin D deficiency, unspecified; I10 Essential (primary) hypertension
CPT/HCPCS: 36415; 80053; 82306; 84443; 85025